=== PATIENT | female | born 1965 | race Caucasian/White ===

== ENCOUNTER → 2019-06-18 14:40 | Outpatient (BNVA) | payer MEDICARE, MEDICAID, SELFPAY | PROVIDERS: Family Provider Registered Nurse; PCP Registered Nurse; Visit Provider Registered Nurse | DX: J11.1 Influenza due to unidentified influenza virus with other respiratory manifestations (principal); J30.9 Allergic rhinitis, unspecified | CPT/HCPCS: 87804 ==

== ENCOUNTER → 2019-11-21 09:11 | Outpatient (BNVA) | payer MEDICARE, MEDICAID, SELFPAY | PROVIDERS: Family Provider Registered Nurse; PCP Registered Nurse; Visit Provider Nurse Practitioner Family | DX: E11.9 Type 2 diabetes mellitus without complications (principal); E78.5 Hyperlipidemia, unspecified; Z79.899 Other long term (current) drug therapy | CPT/HCPCS: 80053; 80061; 82043; 83036 ==

== ENCOUNTER 2019-11-26 13:14 | Outpatient (CLI) | payer MEDICARE, MEDICAID, SELFPAY ==
--- NOTE | 2019-11-26 13:00 | MR_ITS ---
WS: [id number] MRI LUMBAR SPINE WITH AND WITHOUT CONTRAST HISTORY: Low back pain COMPARISON: 04/21/2018 TECHNIQUE: Sagittal and axial multisequence imaging is submitted. Sagittal and axial T1 fat sat seque nces post-ProHance 17 cc IV. Prior LEFT hemilaminectomy defects at L4-5 and L5-S1. Posterior lumbar alignment is unchanged. Minimal anterolisthesis of L4 by 2 mm. Remote L1 compression fracture by 20% with no acute marrow edema. Mild disc space narrowing and desiccation at L5-S1. Conus terminates normally at L1. L1-L2: Bilateral facet and ligamentum flavum arthropathy. Mild encroachment upon the posterior latera l thecal sac. Similar to the prior study. L2-L3: Moderate ligamentum flavum arthropathy and facet arthritis. Mild encroachment and narrowing of the thecal sac and subarticular recesses. Similar to the prior study. L3-L4: Mild ligamentum flavum and hypertrophy and facet arthritis. No focal disc protrusions. L4-L5: Mild annular disc bulging. Marked ligamentum flavum hypertrophy and facet arthritis. Facet yesika nt arthritis encroaches upon the posterior lateral thecal sac. There is contact bilaterally on the L5 nerve roots in the subarticular recesses. No significant foraminal narrowing on the LEFT. Moderate c ontact on the L4 nerve root on the RIGHT. L5-S1: Mild annular disc bulging with facet and ligamentum flavum arthritis. Osteophyte contacting th e S1 nerve roots bilaterally but greater on the LEFT. Mild bilateral foraminal stenosis. On the postcontrast images there is no discitis or osteomyelitis. Small amount of enhancement through the laminectomy sites at L4-5 and L5-S1. No abscess. Incompletely visualized 3 cm RIGHT renal cyst. MR/MR lumbar spine wo/w con [id number] IMPRESSION: 1. Minimal anterolisthesis of L4 is similar to the prior study. 2. Multilevel facet and ligamentum flavum hypertrophy with encroachment upon t he central thecal sac and subarticular recesses. No significant progression of disease. 3. Bilateral facet joint arthritis contacting the L5 nerve roots in the subart icular recesses and moderate contact on the RIGHT L4 nerve root. Similar to the prior study. 4. Bilateral S1 nerve root contact by osteophyte disease, LEFT greater than RI GHT. Similar to the prior study. 5. Remote stable L1 compression fracture. 6. Prior LEFT hemilaminectomy defects at L4-5 and L5-S1.
--- NOTE | 2019-11-26 13:45 | XR_ITS ---
WS: [id number] LATERAL LUMBAR SPINE: 3 view. Lateral radiographs are performed in upright neutral, flexion and extension to the patient's toleranc e. HISTORY: Low back pain COMPARISON: 04/21/2018 L4 anterolisthesis by 7.8 mm on neutral imaging. Mild disc space narrowing at L4-5 and L5-S1. During flexion anterolisthesis 9.5 mm and extension 7.9 mm. XR/XR lumbar spine f/e only [id number] IMPRESSION: 1. Grade 1 anterolisthesis of L4. 2. Mild flexion instability at L4. Similar to the prior study.
== END 2019-11-26 13:15 | disposition home or self-care (01) ==
LOC: RADWPI 13:20
PROVIDERS: Family Provider Registered Nurse; PCP Registered Nurse; Visit Provider Licensed Practical Nurse
DX: M53.2X6 Spinal instabilities, lumbar region (principal); M13.88 Other specified arthritis, other site; S32.010A Wedge compression fracture of first lumbar vertebra, initial encounter for closed fracture; X58.XXXA Exposure to other specified factors, initial encounter; M96.1 Postlaminectomy syndrome, not elsewhere classified
CPT/HCPCS: 72120; 72158; A9579

== ENCOUNTER 2019-11-26 14:21 | Outpatient (CLI) | payer MEDICARE, MEDICAID, SELFPAY ==
--- NOTE | 2019-11-26 14:29 | XR_ITS ---
WS: [id number] LEFT SHOULDER: 3 VIEW(S) TECHNIQUE: Internal and external rotation with Y view. HISTORY: left shoulder pain COMPARISON: None available. No fracture or dislocation or soft tissue abnormality. Mild narrowing of the AC joint. XR/XR shoulder LT min 2V* [id number] IMPRESSION: Mild AC joint arthritis.
== END 2019-11-26 14:22 | disposition home or self-care (01) ==
LOC: RADWPI 14:27
PROVIDERS: Family Provider Registered Nurse; PCP Registered Nurse; Visit Provider Nurse Practitioner Family
DX: M13.812 Other specified arthritis, left shoulder (principal); M53.2X6 Spinal instabilities, lumbar region; M13.88 Other specified arthritis, other site; S32.010A Wedge compression fracture of first lumbar vertebra, initial encounter for closed fracture; X58.XXXA Exposure to other specified factors, initial encounter; M96.1 Postlaminectomy syndrome, not elsewhere classified
CPT/HCPCS: 72120; 72158; 73030; A9579

== ENCOUNTER 2019-11-28 09:46 | Outpatient (CLI) | payer MEDICARE, MEDICAID, SELFPAY ==
--- NOTE | 2019-11-28 09:52 | XR_ITS ---
WS: [id number] Left knee, 3 views, 11/28/2019 Clinical Data: knee pain Comparison: Left knee, 08/17/2018. Findings: No fractures or dislocations are seen. The joint spaces are normal. The patella is intact. The soft t issues are unremarkable. XR/XR knee LT 3V* [id number] Impression: Negative left knee.
== END 2019-11-28 09:47 | disposition home or self-care (01) ==
PROVIDERS: Family Provider Registered Nurse; PCP Registered Nurse; Visit Provider Specialist
DX: M25.562 Pain in left knee (principal)
CPT/HCPCS: 73562

== ENCOUNTER → 2019-12-04 15:37 | Outpatient (BNVA) | payer MEDICARE, MEDICAID, SELFPAY | PROVIDERS: Family Provider Registered Nurse; PCP Registered Nurse; Visit Provider Licensed Practical Nurse | DX: M96.1 Postlaminectomy syndrome, not elsewhere classified (principal) | CPT/HCPCS: 99213 ==

== ENCOUNTER 2019-12-12 10:08 | Outpatient (RCR) | payer MEDICARE, MEDICAID, SELFPAY | END 2019-12-17 23:59 | disposition home or self-care (01) | LOC: WPT 10:08 | PROVIDERS: PCP Registered Nurse; Referring Provider Licensed Practical Nurse; Visit Provider Licensed Practical Nurse | DX: M96.1 Postlaminectomy syndrome, not elsewhere classified (principal) | CPT/HCPCS: 97110; 97163 ==

== ENCOUNTER → 2020-01-18 11:48 | Outpatient (BNVA) | payer MEDICARE, MEDICAID, SELFPAY | PROVIDERS: PCP Registered Nurse; Visit Provider Nurse Practitioner Family | DX: J22 Unspecified acute lower respiratory infection (principal) | CPT/HCPCS: 71046 ==

== ENCOUNTER → 2020-01-25 14:34 | Outpatient (BNVA) | payer MEDICARE, MEDICAID, SELFPAY | PROVIDERS: PCP Registered Nurse; Visit Provider Nurse Practitioner Family | DX: R50.9 Fever, unspecified (principal) | CPT/HCPCS: 87400 ==

== ENCOUNTER → 2020-02-27 14:06 | Outpatient (BNVA) | payer MEDICARE, MEDICAID, SELFPAY | PROVIDERS: PCP Registered Nurse; Visit Provider Nurse Practitioner Family | DX: Z11.59 Encounter for screening for other viral diseases (principal); Z03.818 Encounter for observation for suspected exposure to other biological agents ruled out; R50.9 Fever, unspecified | CPT/HCPCS: 87635 ==

== ENCOUNTER → 2020-05-19 13:42 | Outpatient (BNVA) | payer MEDICARE, MEDICAID, SELFPAY | PROVIDERS: PCP Registered Nurse; Visit Provider Nurse Practitioner Family | DX: E11.9 Type 2 diabetes mellitus without complications (principal); R53.83 Other fatigue; R56.9 Unspecified convulsions; M79.646 Pain in unspecified finger(s); Z51.81 Encounter for therapeutic drug level monitoring | CPT/HCPCS: 80053; 83036; 85025 ==

== ENCOUNTER → 2020-06-18 10:06 | Outpatient (BNVA) | payer MEDICARE, MEDICAID, SELFPAY | PROVIDERS: PCP Nurse Practitioner Family; Referring Provider Registered Nurse; Visit Provider Specialist | DX: M65.311 Trigger thumb, right thumb (principal); M65.321 Trigger finger, right index finger | CPT/HCPCS: 73130 ==

== ENCOUNTER 2020-06-23 07:55 | Outpatient (CLI) | payer MEDICARE, MEDICAID, SELFPAY ==
--- NOTE | 2020-06-23 08:45 | MR_ITS ---
WS: [id number] MRI LEFT SHOULDER HISTORY: M25.519 - Pain in unspecified shoulder COMPARISON: None available. TECHNIQUE: Multiplanar sequences of the shoulder joint are submitted. Mild AC joint hypertrophy. Small osteophyte measuring 5 mm extends inferiorly from the distal undersu rface of the acromion. There are additional osteophytes from the undersurface of the clavicle encroac margie upon the anterior supraspinatus muscle and tendon. Increased fluid signal through the AC ligamen t with soft tissue hypertrophy around the capsule. No os acromion. Biceps tendon is in normal positio n. Very slight increased amount of fluid along the biceps tendon. Suspicious for very minimal undersurface tear of the distal supraspinatus tendon. There is also mild tendinopathy. No muscle atrophy or edema. Small amount of fluid along the subscapular recess. Abnorm al signal in the posterior labrum. There is also markedly increased signal in the superior labrum. In crease fluid around the labrum. No fractures or marrow edema. There is mild blunting of the superior and inferior glenoid with no marrow edema or fractures. This may be degenerative change or remote hea led fractures. MR/MR shoulder LT wo con* [id number] IMPRESSION: 1. Mild AC joint hypertrophy with moderate encroachment upon the supraspinatus muscle and tendon. Mild AC joint sprain. 2. 5 mm acromial osteophyte from the undersurface encroaches upon the supraspi natus. 3. Significant tear involving the labrum extending superior to posterior. 4. Minimal tear along the articular surface of the distal supraspinatus with t endinopathy. 5. Blunting of the glenoid superior and inferior surfaces may be from prior tr auma. No acute fractures.
== END 2020-06-23 07:56 | disposition home or self-care (01) ==
LOC: RADWPI 07:58
PROVIDERS: PCP Nurse Practitioner Family; Visit Provider Registered Nurse
DX: S43.492A Other sprain of left shoulder joint, initial encounter (principal); S43.52XA Sprain of left acromioclavicular joint, initial encounter; X58.XXXA Exposure to other specified factors, initial encounter; M25.712 Osteophyte, left shoulder
CPT/HCPCS: 73221

== ENCOUNTER → 2020-06-26 09:44 | Outpatient (BNVA) | payer MEDICARE, MEDICAID, SELFPAY | PROVIDERS: PCP Nurse Practitioner Family; Visit Provider Specialist | DX: Z01.812 Encounter for preprocedural laboratory examination (principal); M65.311 Trigger thumb, right thumb; M65.321 Trigger finger, right index finger | CPT/HCPCS: 87635 ==

== ENCOUNTER 2020-07-01 05:43 | Day surgery (SDC) | payer MEDICARE, MEDICAID, SELFPAY ==
[2020-06-30 14:48] VITALS: BMI 31.1
[2020-07-01] VITALS (9 sets, daily range): BP systolic 105–153; BP diastolic 50–95; PULSE 67–75; RESP 16–18; TEMP 36.3–36.9; O2SAT 90–97
[2020-07-01 06:12] LABS: Glucose Point of Care 178 mg/dL (70-110)
[2020-07-01] MEDS: CELEcoxib 200 mg Capsule 400 MG PO (06:16)
[2020-07-01] MEDS: sodium chloride 0.9% 1,000 ML 30 ML IV (06:16)
--- NOTE | 2020-07-01 06:45 | W.PM.OPSUD ---
Surgery/Procedure H&P Update DATE OF PROCEDURE: July 01, 2020 DATE H&P PERFORMED: 06/18/20 H&P UPDATE INFORMATION: I have reviewed H&P completed within last 30 days, I have examined patient prior to procedure and No changes to prior documentation PREOP DIAGNOSIS: Right thumb and index finger triggering PLANNED PROCEDURE: Operation Date: 07/01/20 07:10 Proposed Procedures p Right thumb trigger finger release right index finger release(Right) - Vita Nick MD Related Problem List Diagnoses (1) Trigger finger of right thumb: (2) Trigger finger, right index finger:
--- NOTE | 2020-07-01 06:57 | P.ANESASSM_ITS ---
Pre-Anesthetic Assessment Pre-Anesthetic Assessment: Height/Weight: Height 1.57 m Weight 77.111 kg Temp Pulse Resp BP Pulse Ox 98.4 F 74 18 136/74 95 07/01/20 05:56 07/01/20 05:56 07/01/20 05:56 07/01/20 05:56 07/01/20 05:56 Preop Diagnosis: Right thumb and index finger triggering Proposed Procedure: Operation Date: 07/01/20 07:10 Proposed Procedures p Right thumb trigger finger release rigth index finger release(Right) - Vita Nick MD Was Beta Berenice taken within 24 hours: N/A Was Clonidine taken within 24 hours: N/A Last intake: Intake Last Liquid Date 06/30/20 Last Liquid Time 22:00 Last Solid Date 06/30/20 Last Solid Time 22:00 Social: Social History: Tobacco and No alcohol Exam: Pre-Anes Outpt Exam: alert, oriented x 3 and regular rate & rhythm Airway: Submandibular: WNL Cervical ROM: WNL MP: 2 Dentition: False Pulmonary: Pulmonary: COPD and Sleep apnea Metabolic: Metabolic: Morbid obesity Musc/skel: Musc/skel: Lower Back Pain Neuropsych: Neuropsych: Anxiety and Seizure Anesthetic Plan: ASA status: 3 Anesthesia: MAC Risk of > 500 ml blood loss (7ml/kg in children): No Meds/Allergies Current Medications: Current Medications Generic Name Dose Route Start Last Admin Trade Name Freq PRN Reason Stop Dose Admin Sodium Chloride 1,000 mls @ 30 ml s/hr 07/01/20 06:00 07/01/20 06:16 Sodium Chloride 0.9% IV 07/02/20 05:59 30 mls/hr .Q24H DAVID Administration PFSH Anesthesia PFSH: Medical History COPD (chronic obstructive pulmonary disease) Enrolled in chronic care management Lower respiratory infection Lumbar post-laminectomy syndrome Migraine headache Seizures Seizures Type 2 diabetes mellitus without complication, with no history of insulin use Surgical History History of carpal tunnel release of both wrists History of cervical spinal surgery (1998) 01/08/2016 Dr. Kamila Cabrera: ACDFF surgical site exploration, postoperative cervical wound seroma. 12/29/2015 Dr. Carol Cabrera: C4-C5 ACDF 5, removal of C5-C7 anterior plate and screw fixation hardware. [facility], [place] C5-C7 ACDFF History of decompression of ulnar nerve (10/17/17) 10/17/2017 Dr. Cabrera: Open release of left elbow with subcutaneous transposition. History of hernia repair History of lumbar surgery (07/12/16) 07/12/2016 Dr. Carol Cabrera: Left L4-L5, L5-S1 laminotomy/foraminotomy Family History Sister Diabetes Mother Diabetes Hypertension Cancer Father Diabetes Hypertension Cancer Social History Smoking and tobacco status: current every day smoker Alcohol intake: never Household members: spouse Marital status: Current occupational status: disabled History of recent travel: No Data Anesthesia Other Labs: Laboratory Results - last 48 hr 07/01/20 06:09 POC Glucose 178 H Cardiac Studies: No Data to Display
--- NOTE | 2020-07-01 08:20 | SUR.PHASEI ---
PT ON RA TRIAL, PT DOES NOT AWAKE TO TOUCH, HOB AT 30 DEGREES, VSS RT ARM ELEVATED ON PILLOW, DISTAL FINGERS PINK WARM WITH FAST CAP REFILL NOTED.
--- NOTE | 2020-07-01 08:32 | P.OP_ITS ---
Operative Report Date of procedure: July 01, 2020 Pre-op Diagnosis: Right thumb and index finger triggering Post-op diagnosis: same Post-op Findings: Triggering with his of tendon irregularity Procedure Done: Release right thumb and index trigger fingers Specimens removed/disposition: None Pathology: none sent Surgeon: Vita Nick Anesthesia: MAC (With [place] block) Estimated blood loss (mL): 0 Tourniquet time (min): 44 Tourniquet time: At 250 mmHg IV fluids (mL): 500 Urine output (mL): 0 Urine output: No Lambert Complications: None Findings: Significant triggering, particularly of the thumb, with some irregularity of the tendon consistent with chronic triggering. Condition: stable Disposition: PACU (Then to same-day surgery for discharge to home) Brief History: This 54-year-old woman presented with complaints of severe right thumb triggering and early right index finger triggering. She wished to proceed with operative intervention. Risks and complications were discussed with her, and the patient understood these having had trigger finger release on the opposite hand. The patient signed consents preoperatively. Questions were answered. Procedure: Patient was brought to the operating theater. She was placed on the operating room table. A Caitlin block with MAC was administered without difficulty. Patient tolerated it well. 2 g of Ancef was administered. A tourniquet was placed high on the arm and was elevated for the [place] block. Following exsanguination of the patient's arm, the tourniquet was elevated to 250 mmHg. Total tourniquet time was 44 minutes. Surgical pause was performed prior to commencement of the surgical procedure. At the time of the surgical pause, we identified the site and side of surgery. We also identified the patient's identity and appropriate administration of IV antibiotics. Following the surgical pause, an incision was made along the distal palmar crease beneath the index finger and proximally along the metacarpal phalangeal crease of the thumb. 2 separate incisions were utilized. Dissection continued through the skin to the subcutaneous tissues using a scalpel. Blunt dissection was then utilized to spread soft tissues and allow access to the A1 jose. Each A1 jose was identified. It was then incised longitudinally and sharply using a knife. This was accomplished without difficulty and atraumatically. Once the A1 pulleys were released, tendons were brought up out of the wound and evaluated. There was irregularity consistent with chronic triggering, but no evidence of thinning of the tendon. Tendons were returned to normal position. We then irrigated the wounds and subsequently closed it with 3-0 nylon with an interrupted mattress type suture. Following closure of the wound, the wounds were injected with bupivacaine plain into the subcutaneous tissues as a local anesthetic. Sterile dressing was then placed consisting of OpSite on each incision, fluffed fluffs, sterile soft roll, and an Iam wrap. The patient was returned to recovery in satisfactory condition. She will be discharged home to follow-up with me in the office. There were no complications and no specimens. Associated Problem List Diagnoses (1) Trigger finger, right index finger: (2) Trigger finger of right thumb:
--- NOTE | 2020-07-01 08:35 | SUR.PHASEI ---
PT AWAKE ALERT VERBALIZED NO PAIN AND NO NAUSEA, PT TAKING OCC ICE CHIPS , BUT DOES DOZE OFF IF NOT DISTURBED
--- NOTE | 2020-07-01 14:08 | ANE.PACU2 ---
Inpatient post-anesthesia follow up: Airway intact: Yes Vital signs: Temperature 97.7 F Pulse Rate 67 Respiratory Rate 18 Blood Pressure 153/95 Pulse Oximetry 93 Oxygen Delivery Me thod Room Air Oxygen Flow Rate 8 Fraction of Inspir ed Oxygen Hydration adequate: Yes Nausea and vomiting: No Pain level: 1 Mental status: Baseline
== END 2020-07-01 09:21 | disposition home or self-care (01) ==
PROVIDERS: PCP Nurse Practitioner Family; Visit Provider Specialist
PROC: (CPT 26055; principal; 2020-07-01 07:00)
DX: M65.311 Trigger thumb, right thumb (principal); M65.321 Trigger finger, right index finger; J44.9 Chronic obstructive pulmonary disease, unspecified; G47.30 Sleep apnea, unspecified; E66.01 Morbid (severe) obesity due to excess calories; Z68.31 Body mass index [BMI] 31.0-31.9, adult; E11.9 Type 2 diabetes mellitus without complications; F17.210 Nicotine dependence, cigarettes, uncomplicated; Z79.84 Long term (current) use of oral hypoglycemic drugs
CPT/HCPCS: 26055 ×2; 36416; 82962; 96365; J0131; J0690; J2250; J2704; J3490; J7030

== ENCOUNTER → 2020-07-08 13:04 | Outpatient (BNVA) | payer MEDICARE, MEDICAID, SELFPAY | PROVIDERS: PCP Nurse Practitioner Family; Visit Provider Specialist | DX: F44.5 Conversion disorder with seizures or convulsions (principal); F17.210 Nicotine dependence, cigarettes, uncomplicated | CPT/HCPCS: 99204 ==

== ENCOUNTER → 2020-07-09 10:38 | Outpatient (BNVA) | payer MEDICARE, MEDICAID, SELFPAY | PROVIDERS: PCP Nurse Practitioner Family; Referring Provider Registered Nurse; Visit Provider Specialist | DX: M25.519 Pain in unspecified shoulder (principal) | CPT/HCPCS: 73030 ==

== ENCOUNTER → 2020-07-10 09:49 | Outpatient (BNVA) | payer MEDICARE, MEDICAID, SELFPAY | PROVIDERS: PCP Nurse Practitioner Family; Visit Provider Specialist | DX: R56.9 Unspecified convulsions (principal); F17.210 Nicotine dependence, cigarettes, uncomplicated | CPT/HCPCS: 95816 ==

== ENCOUNTER 2020-07-14 06:00 | Outpatient (RCR) | payer MEDICARE, MEDICAID, SELFPAY | END 2020-07-16 23:59 | disposition home or self-care (01) | LOC: WPT 06:00 | PROVIDERS: PCP Nurse Practitioner Family; Referring Provider Specialist; Visit Provider Specialist | DX: M25.512 Pain in left shoulder (principal) | CPT/HCPCS: 97110; 97162 ==

== ENCOUNTER 2020-07-17 06:00 | Outpatient (RCR) | payer MEDICARE, MEDICAID, SELFPAY | END 2020-08-15 23:59 | disposition home or self-care (01) | LOC: WPT 06:00 | PROVIDERS: PCP Nurse Practitioner Family; Referring Provider Specialist; Visit Provider Specialist | DX: M25.512 Pain in left shoulder (principal) | CPT/HCPCS: 97110 ==

== ENCOUNTER → 2020-09-18 11:31 | Outpatient (BNVA) | payer MEDICARE, MEDICAID, SELFPAY | PROVIDERS: PCP Registered Nurse; Visit Provider Registered Nurse | DX: E11.9 Type 2 diabetes mellitus without complications (principal); J44.9 Chronic obstructive pulmonary disease, unspecified; G25.81 Restless legs syndrome; E78.5 Hyperlipidemia, unspecified; I10 Essential (primary) hypertension; S91.331A Puncture wound without foreign body, right foot, initial encounter; F41.9 Anxiety disorder, unspecified; F17.210 Nicotine dependence, cigarettes, uncomplicated | CPT/HCPCS: 80053; 83036 ==

== ENCOUNTER → 2021-03-04 09:39 | Outpatient (BNVA) | payer MEDICARE, MEDICAID, SELFPAY | PROVIDERS: PCP Registered Nurse; Visit Provider Specialist | DX: M25.512 Pain in left shoulder (principal); M75.80 Other shoulder lesions, unspecified shoulder | CPT/HCPCS: 73030 ==

== ENCOUNTER → 2021-03-17 08:08 | Outpatient (BNVA) | payer MEDICARE, MEDICAID, SELFPAY | PROVIDERS: PCP Registered Nurse; Referring Provider Specialist; Visit Provider Specialist | DX: R56.9 Unspecified convulsions (principal) | CPT/HCPCS: 95816 ==

== ENCOUNTER 2021-03-18 11:26 | Outpatient (CLI) | payer MEDICARE, MEDICAID, SELFPAY ==
--- NOTE | 2021-03-18 11:45 | MR_ITS ---
WS: [id number] MRI LUMBAR SPINE NONCONTRAST TECHNIQUE: Sagittal T1, T2 and STIR imaging. Axial T1 and T2 imaging. CLINICAL INFORMATION: M54.16 - Radiculopathy, lumbar region COMPARISON: None. FINDINGS: Mild lumbar curve. No acute compression. No high-grade central canal stenosis. Slight anterolisthesis L4 on L5. Schmorl's node superior endplate L1. Small central protrusions lower thoracic spine at T6- T7 and T7-T8. T12-L1: Mild annular bulging. Mild facet arthropathy. Spinal canal and foramen are patent. L1-L2: Mild annular bulging. Slight narrowing of the subarticular recess bilaterally. Moderate facet arthropathy. Foramen are patent. L2-L3: Mild annular bulging with mild central canal stenosis. Slight impingement on the subarticular recess. Mild right foraminal narrowing. Moderate facet arthropathy. L3-L4: Mild annular bulging with slight effacement of ventral thecal sac. Moderate facet arthropathy. Mild right foraminal narrowing. L4-L5: Slight anterolisthesis L4 on L5. Mild disc bulging with osteophytic ridging. Slight contact of the traversing L5 nerve roots bilaterally. Mild central canal stenosis. Moderate to advanced facet a rthropathy. Moderate right foraminal narrowing. Left foramen is patent. L5-S1: Disc osteophyte complex with endplate ridging. Moderate facet arthropathy. Foramen are patent. Right renal cysts largest measuring 3.2 CM. MR/MR lumbar spine wo con* [id number] IMPRESSION: 1. Mild lumbar curve. No acute compression. No high-grade central canal stenos is. Grade 1 anterolisthesis L4 on L5. 2. Mild central canal stenosis L2-3 and L4-5 with impingement on the subarticu lar recess bilaterally. This is worse at right L4-5 with impingement traversing right L5 nerve root. 3. Moderate right L4-5 foraminal narrowing with contact of the exiting right L 4 nerve root. 4. Advanced arthropathy L4-L5 and L5-S1.
== END 2021-03-18 11:27 | disposition home or self-care (01) ==
PROVIDERS: PCP Registered Nurse; Visit Provider Registered Nurse
DX: M54.16 Radiculopathy, lumbar region (principal); M48.061 Spinal stenosis, lumbar region without neurogenic claudication; M47.816 Spondylosis without myelopathy or radiculopathy, lumbar region; M47.817 Spondylosis without myelopathy or radiculopathy, lumbosacral region
CPT/HCPCS: 72148

== ENCOUNTER → 2021-03-20 09:55 | Outpatient (BNVA) | payer MEDICARE, MEDICAID, SELFPAY | PROVIDERS: PCP Registered Nurse; Visit Provider Specialist | DX: Z20.822 Contact with and (suspected) exposure to COVID-19 (principal); M25.512 Pain in left shoulder | CPT/HCPCS: 87635 ==

== ENCOUNTER 2021-03-27 06:17 | Day surgery (SDC) | payer MEDICARE, MEDICAID, SELFPAY ==
[2021-03-26 14:01] VITALS: BMI 29.2
[2021-03-27] VITALS (8 sets, daily range): BP systolic 110–172; BP diastolic 60–91; PULSE 76–105; RESP 15–23; TEMP 36.2–37.1; O2SAT 92–96
[2021-03-27] MEDS: acetaminophen 1,000 MG/100 ML PIGGYBACK 400 MG IV (07:15)
[2021-03-27] MEDS: CELEcoxib 200 mg Capsule 400 MG PO (07:15)
[2021-03-27] MEDS: sodium chloride 0.9% 1,000 ML 30 ML IV (07:16)
[2021-03-27 07:29] LABS: Glucose Point of Care 159 mg/dL (70-110)
[2021-03-27 07:32] LABS: Basophils # 0.1 10^3/uL (0.0-0.1); Basophils % 0.7 %; Eosinophils # 0.6 10^3/uL (0.0-0.8); Eosinophils % 7.7 %; Hematocrit 40.9 % (37.0-47.0); Hemoglobin 13.8 g/dL (11.5-15.3); Lymphocytes # 2.3 10^3/uL (0.8-4.8); Lymphocytes % 29.9 %; Mean Corpuscular HGB Conc 33.7 g/dL (30.0-36.0); Mean Corpuscular Hemoglobin 30.3 pg (28.0-34.0); Mean Corpuscular Volume 89.7 fl (81-99); Mean Platelet Volume 10.4 fL (7.4-10.4); Monocytes # 0.6 10^3/uL (0.2-0.9); Monocytes % 7.5 %; Neutrophils # 4.08 10^3/uL (1.8-7.7); Neutrophils % 53.5 %; Nucleated Red Blood Cells % 0 %; Platelet Count 235 10^3/cmm (130-400); Red Blood Count 4.56 10^6/uL (4.1-5.3); Red Cell Distribution Width 12.9 % (12.1-15.1); White Blood Count 7.6 10^3/uL (4.0-10.0)
--- NOTE | 2021-03-27 07:32 | P.ANESASSM_ITS ---
Pre-Anesthetic Assessment Pre-Anesthetic Assessment: Height/Weight: Height 1.57 m Weight 72.575 kg Temp Pulse Resp BP Pulse Ox 98.8 F 76 16 127/77 95 03/27/21 07:01 03/27/21 07:01 03/27/21 07:01 03/27/21 07:01 03/27/21 07:01 Preop Diagnosis: Left shoulder impingement with labral tear Proposed Procedure: Operation Date: 03/27/21 08:20 Proposed Procedures p Shoulder Arthroscopy 91297 08269/ S43.432A, M75.02/ M75.80(Left) - Vita Nick MD s open Distal Clavicle Resection(Left) - Vita Nick MD s Acromioplasty(Left) - Vita Nick MD Familial anesthetic complications: None Was Beta Berenice taken within 24 hours: N/A Was Clonidine taken within 24 hours: N/A Last intake: Intake Last Liquid Date 03/26/21 Last Liquid Time 21:00 Last Solid Date 03/26/21 Last Solid Time 21:00 Social: Social History: No alcohol and No tobacco Exam: Pre-Anes Outpt Exam: alert, oriented x 3, clear to auscultation bilaterally and regular rate & rhythm Airway: Cervical ROM: WNL MP: 3 Dentition: Full Pulmonary: Pulmonary: COPD and Sleep apnea Metabolic: Metabolic: Morbid obesity Neuropsych: Neuropsych: Anxiety and Seizure Anesthetic Plan: ASA status: 3 Anesthesia: General and Regional (specify below) Risk of > 500 ml blood loss (7ml/kg in children): No Meds/Allergies Current Medications: Current Medications Generic Name Dose Route Start Last Admin Trade Name Freq PRN Reason Stop Dose Admin Sodium Chloride 1,000 mls @ 30 ml s/hr 03/27/21 07:00 03/27/21 07:16 Sodium Chloride 0.9% IV 03/28/21 06:59 30 mls/hr .Q24H DAVID Administration PFSH Anesthesia PFSH: Medical History COPD (chronic obstructive pulmonary disease) Enrolled in chronic care management Hyperlipidemia Lower respiratory infection Lumbar post-laminectomy syndrome Migraine headache Restless leg syndrome Seizures Seizures Type 2 diabetes mellitus without complication, with no history of insulin use Surgical History History of carpal tunnel release of both wrists History of cervical spinal surgery (1998) 01/08/2016 Dr. Kamila Cabrera: ACDFF surgical site exploration, postoperative cervical wound seroma. 12/29/2015 Dr. Carol Cabrera: C4-C5 ACDF 5, removal of C5-C7 anterior plate and screw fixation hardware. [place], [place] C5-C7 ACDFF History of decompression of ulnar nerve (10/17/17) 10/17/2017 Dr. Cabrera: Open release of left elbow with subcutaneous transposi tion. History of hernia repair History of lumbar surgery (07/12/16) 07/12/2016 Dr. Carol Cabrera: Left L4-L5, L5-S1 laminotomy/foraminotomy Family History Sister Diabetes Mother Diabetes Hypertension Cancer Father Diabetes Hypertension Cancer Social History Alcohol intake: never Household members: spouse Marital status: Current occupational status: disabled History of recent travel: No Data Anesthesia CBC & Chem 7: 03/27/21 07:00 03/27/21 07:00 Other Labs: Laboratory Results - last 48 hr 03/27/21 07:21 POC Glucose 159 H Cardiac Studies: No Data to Display
[2021-03-27] MEDS: fentaNYL 50 mcg/mL INJ 2mL IVP (07:44)
[2021-03-27] MEDS: midazolam 1 mg/mL INJ 2 mL 2 MG IVP (07:44)
[2021-03-27 07:48] LABS: Add Urine Microscopic? YES; Bilirubin Urine Neg (Negative); Blood Urine Neg (Negative); Glucose Urine UA Norm (Normal); Ketones Urine Negative (Negative); Leukocyte Esterase Urine Negative (Negative); Nitrate Urine Negative (Negative); Protein Urine Neg (Negative); Urine Appearance SL Hazy (CLEAR); Urine Color Yellow (Yellow); Urobilinogen Urine 1 mg/dL (Negative); pH Urine 5 (5-7)
[2021-03-27 07:49] LABS: Add Urine Culture? No; Bacteria Urine 2+ /hpf; Squamous Epithelial Cell Urine 15-25 /hpf (0-5); WBC Urine 0-4 /hpf (0-5)
[2021-03-27 07:52] LABS: Alanine Aminotransferase 16 U/L (0-33); Albumin Level 4.4 g/dL (3.5-5.2); Alkaline Phosphatase 60 IU/L (35-105); Aspartate Amino Transferase 11 U/L (0-32); Blood Urea Nitrogen 9 mg/dL (6-20); Calcium 8.4 mg/dL (8.5-10.5); Carbon Dioxide 19 mmol/L (22-29); Chloride 105 mmol/L (98-107); Globulin 2.3 g/dL (1.3-4.6); Glomerular Filtration Rate 64.5 mL/min (90-130); Glucose 159 mg/dL (65-115); Osmolality Calculated 288 mOsm/kg (285-295); Sodium 138 mmol/L (136-145); Total Bilirubin 0.2 mg/dL (0.15-1.2); Total Protein 6.7 g/dL (6.6-8.7)
[2021-03-27 07:54] LABS: Anion Gap 17.9 (5-19); Potassium 3.9 mmol/L (3.5-5.1)
--- NOTE | 2021-03-27 08:57 | P.HPUD_ITS ---
Surgery/Procedure H&P Update DATE OF PROCEDURE: March 27, 2021 DATE H&P PERFORMED: 03/17/21 H&P UPDATE INFORMATION: I have reviewed H&P completed within last 30 days, I have examined patient prior to procedure, Changes to prior documentation as noted here (Patient has stopped smoking) and [place] [facility] [place] date indicated PREOP DIAGNOSIS: Left shoulder impingement with labral tear PLANNED PROCEDURE: Operation Date: 03/27/21 08:20 Proposed Procedures p Shoulder Arthroscopy 18052 [id number]/ S43.432A, M75.02/ M75.80(Left) - Vita Nick MD s open Distal Clavicle Resection(Left) - Vita Nick MD s Acromioplasty(Left) - Vita Nick MD Related Problem List Diagnoses (1) DJD of left AC (acromioclavicular) joint: (2) Degenerative tear of glenoid labrum of left shoulder: (3) Impingement syndrome, shoulder, left:
[2021-03-27] MEDS: EPINEPHrine 1 mg/mL INJ 2 MG XX (10:21)
--- NOTE | 2021-03-27 11:46 | PM.OP ---
Operative Report Date of procedure: March 27, 2021 Pre-op Diagnosis: Left shoulder impingement, osteoarthritis acromioclavicular joint, and labral tear Post-op diagnosis: same Post-op Findings: Left significant degenerative osteoarthritic change of the acromioclavicular joint with impingement, impingement from the acromion, no rotator cuff tear, degenerative labral tearing. Procedure Done: Shoulder arthroscopic debridement of labral tear and synovitis, open acromioplasty with distal clavicle resection Specimens removed/disposition: Bone, disposed of Pathology: none sent Surgeon: Vita Nick Sap Solution Manager Consultant: None Anesthesia: General (Intubated, ASA 3 with preoperative interscalene block) Estimated blood loss (mL): 25 IV fluids (mL): 800 Urine output (mL): 0 Urine output: No Lambert Complications: None Findings: Significant impingement secondary to subacromial osteophytes and degenerative osteoarthritis of the acromioclavicular joint. Additionally, synovitis and labral tear. Condition: stable Disposition: PACU (Then discharged to home after same-day surgery.) Brief History: This 55-year-old woman presented with complaints of ongoing shoulder pain. MRI findings were consistent with impingement from the acromion as well as the acromioclavicular joint. Additionally, the patient was noted to have labral tearing. Risks and complications of surgical intervention were discussed with the patient. After this discussion, she wished to proceed. Questions were answered. Consents were signed. Procedure: The patient was brought to the operating theater and underwent general intubated, ASA 3, anesthesia. This followed a preoperative interscalene block. The patient was placed in a beachchair position and subsequently the left upper extremity was prepped and draped in the usual fashion utilizing DuraPrep. The arm was draped free. A surgical pause was performed prior to commencement of the surgical procedure. At the time of the surgical pause, we confirmed the site and side of surgery as well as administration of appropriate preoperative antibiotics Ancef 2 g. MRI was also reviewed at that time. Following the surgical pause, arthroscopic portals were established. The arthroscope was introduced into the shoulder joint. At that time, evaluation demonstrated synovitis as well as degenerative osteoarthritis of the glenohumeral joint and labral tearing. Shaver was introduced into the joint. The labrum was debrided. Small amounts of osteoarthritis were also debrided as well. The shoulder was copiously irrigated and attention was directed to the open portion of the procedure. An incision was made at approximately the level of the acromioclavicular joint extending across the anterolateral corner of the acromion and distally as necessary. Care was taken to avoid injury to the axillary nerve by limiting the distal extent of the incision. Dissection continued through skin and soft tissues using a scalpel. Hemostasis was obtained using electrocautery. Soft tissues were elevated off the acromion. An acromioplasty was then accomplished using a combination of a saw and a power rasp. With this, we were able to remove compression caused by the acromion. The rotator cuff was then evaluated to look for tears. No tears were identified. We did perform a partial bursectomy. The shoulder was placed through range of motion to assure that there were no tears in the anterior or posterior margins as well. Finding no rotator cuff tear, this area was irrigated and attention was directed to the acromioclavicular joint. The acromioclavicular joint was exposed. A saw was then used to resect the distal clavicle without difficulty. The undersurface of the clavicle was palpated and was slightly further debrided. A power rasp was used to further smooth the area. When this was felt to be adequately resected, the wound was irrigated. Attention was then directed to closure. The wound was irrigated and closure was accomplished with 0 Vicryl in the capsular tissues overlying the acromioclavicular joint area as well as over the acromion and down into the deltoid muscle. 2-0 Monocryl was used to close the subcutaneous tissues followed by 3-0 Monocryl subcuticular closure. This was followed by Dermabond, Steri-Strips, and OpSite. The patient was placed in a slingshot style sling and was returned to the recovery room in satisfactory condition. The patient will be discharged to home to follow-up with me in the office as previously scheduled. There were no complications and no specimens. Associated Problem List Diagnoses (1) DJD of left AC (acromioclavicular) joint: (2) Degenerative tear of glenoid labrum of left shoulder: (3) Impingement syndrome, shoulder, left:
--- NOTE | 2021-03-27 12:24 | ANE.PACU2 ---
Inpatient post-anesthesia follow up: Airway intact: Yes Vital signs: Temperature 97.1 F Pulse Rate 90 Respiratory Rate 18 Blood Pressure 122/60 Pulse Oximetry 92 Oxygen Delivery Me thod Room Air Oxygen Flow Rate Fraction of Inspir ed Oxygen Hydration adequate: Yes Nausea and vomiting: No Pain level: 2 Mental status: Baseline
== END 2021-03-27 12:25 | disposition home or self-care (01) ==
PROVIDERS: PCP Registered Nurse; Visit Provider Specialist
PROC: (CPT 29805; principal; 2021-03-27 08:10)
PROC: (CPT 23120; 2021-03-27 08:10)
PROC: (CPT 23130; 2021-03-27 08:10)
DX: M25.512 Pain in left shoulder (principal); M19.012 Primary osteoarthritis, left shoulder; S43.492A Other sprain of left shoulder joint, initial encounter; M65.812 Other synovitis and tenosynovitis, left shoulder; E11.9 Type 2 diabetes mellitus without complications; Z79.84 Long term (current) use of oral hypoglycemic drugs; X58.XXXA Exposure to other specified factors, initial encounter
CPT/HCPCS: 23120; 29822; 36416; 64415; 76942; 80053; 81001; 82962; 85025; 96365; J0171; J0690; J1100; J2250; J2405; J2704; J2795; J3010; J3490; J7030

== ENCOUNTER → 2021-04-30 15:36 | Outpatient (BNVA) | payer MEDICARE, MEDICAID, SELFPAY | PROVIDERS: PCP Registered Nurse; Referring Provider Registered Nurse; Visit Provider Orthopaedic Surgery | DX: M54.16 Radiculopathy, lumbar region (principal); M16.11 Unilateral primary osteoarthritis, right hip | CPT/HCPCS: 72110; 73502 ==

== ENCOUNTER 2021-05-04 11:00 | Emergency (ER) | payer MEDICARE, MEDICAID, SELFPAY ==
[2021-05-04 11:11] VITALS: BP 117/70; PULSE 102; RESP 16; TEMP 36.7; O2SAT 95
--- NOTE | 2021-05-04 11:53 | P.NPUCON_ITS ---
Providers/Reason for Consult Consulting Physican/Specialty*: Sabas Garcia MD/Psychiatist Reason for Consult*: Increased stress Primary Care Provider: VANESSA Medina Psych Consult HPI History of Present Illness Galina Engle is a 55 year old female who is an emergency room sent by the crisis team at [facility]. She says that she has been diagnosed with dissociative identity disorder. She does not feel that she needs to be in the hospital. She is not having any suicidal thoughts but has been more stressed out lately. She has not seen a psychiatrist and her medications are being filled by her family practice doctor. She is on BuSpar 30 mg, Prozac 40 mg, Requip 1 mg and Topamax 150 mg daily. She says that her doctor recently gave her some trazodone 50 mg tablets and told her to take 1 or 2 and call her if it worked and she wanted more. She has taken about 6 of them only 1 at a time. She has not tried two. One does not do very much and she will try milligrams tonight. The Requip also has not been working very well and she will try increasing that to 2 mg for the next few nights. She had an intake with [facility] last week and she is supposed to see the psychiatrist in a couple of weeks. Hopefully if she sleeps better she will function better during the day. PFSH NPU PFSH: Medical History COPD (chronic obstructive pulmonary disease) Enrolled in chronic care management Hyperlipidemia Lower respiratory infection Lumbar post-laminectomy syndrome Migraine headache Restless leg syndrome Seizures Type 2 diabetes mellitus without complication, with no history of insulin use Surgical History History of carpal tunnel release of both wrists History of cervical spinal surgery (1998) 01/08/2016 Dr. Kamila Cabrera: ACDFF surgical site exploration, postoperative cervical wound seroma. 12/29/2015 Dr. Carol Cabrera: C4-C5 ACDF 5, removal of C5-C7 anterior plate and sc rew fixation hardware. [place], [place] C5-C7 ACDFF History of decompression of ulnar nerve (10/17/17) 10/17/2017 Dr. Cabrera: Open release of left elbow with subcutaneous transposition. History of hernia repair History of lumbar surgery (07/12/16) 07/12/2016 Dr. Carol Cabrera: Left L4-L5, L5-S1 laminotomy/foraminotomy Family History Sister Diabetes Mother Diabetes Hypertension Cancer Father Diabetes Hypertension Cancer Social History Smoking and tobacco status: current every day smoker Alcohol intake: never Household members: spouse Marital status: Current occupational status: disabled History of recent travel: No Mental Status Exam MSE Comments: I only talked with her over the phone. Pleasant and cooperative and did not seem overly stressed out. She adamantly denied having any thoughts of suicide and does not think that she needs to be in the hospital. She seemed agreeable that focusing on sleep for the time being we will help her make it until she sees a psychiatrist. Vitals/I&O/Wt Last Vital Signs Temp 98.0 F 05/04/21 11:11 Pulse 102 H 05/04/21 11:11 Resp 16 05/04/21 11:11 BP 117/70 05/04/21 11:11 Pulse Ox 95 05/04/21 11:11 Weight last 48 hrs Weight 72.575 kg A&P Additional A&P Information This is a 55-year-old female who reports being diagnosed with dissociative identity disorder. She clearly needs to see a psychiatrist and has an appointment in 2 weeks. I made recommendations to her to improve her sleep which should improve things until she can get in to see the psychiatrist. She does not need to be in the hospital at this point. She is not a danger to herself or others. Attestations NPU Medical Necessity Statement*: Attending physician's note on medical necessity. Coding Level of Care Code Acute Director Staffing for Richard Connell
--- NOTE | 2021-05-04 11:56 | W.ED.GENADLT ---
HPI - General Adult General: Chief complaint: Psychiatric Symptoms Stated complaint: stress out Time Seen by Provider: 05/04/21 11:16 History of Present Illness: HPI narrative: HPI: [55]yo patient w/ hx of dissociative identiy disorder and anxiety brought into the ER for worsening anxiety and stress. Patient was seen today in [facility] clinic and was told to come into the ER for evaluation of worsening stress.last time patient has had similar stress was over 6 months ago at which point time, patient went into this dissociative phase. On arrival, the patient is AAOx3 and cooperative with my evaluation. No focal complaints of chest pain, shortness of breath, palpitations, N/V, focal GI/ complaints. Currently denies SI/HI. No complaints of hallucinations. Onset: Acutely over the last month Duration: ongoing Location: home Severity: moderate Associated symptoms: Deny chest pain, dyspnea, nausea, rash, palpitations or vomiting Review of Systems Const: Denies: fever(s) or chills Eyes: Denies: change in vision ENMT: Denies: mouth pain Card: Denies: chest pain or palpitations Resp: Denies: dyspnea or non-productive cough GI: Denies: abdominal pain, nausea, vomiting or diarrhea : Denies: dysuria Musc: Denies: extremity pain Skin/Breast: Denies: rash or new lesions Neuro: Denies: weakness in extremities Psych: Reports: other (increased stress) Husam/Lymph: Denies: easy bruising PFS ED PFSH: Medical History COPD (chronic obstructive pulmonary disease) Enrolled in chronic care management Hyperlipidemia Lower respiratory infection Lumbar post-laminectomy syndrome Migraine headache Restless leg syndrome Seizures Type 2 diabetes mellitus without complication, with no history of insulin use Surgical History History of carpal tunnel release of both wrists History of cervical spinal surgery (1998) 01/08/2016 Dr. Kamila Cabrera: ACDFF surgical site exploration, postoperative cervical wound seroma. 12/29/2015 Dr. Carol Cabrera: C4-C5 ACDF 5, removal of C5-C7 anterior plate and screw fixation hardware. [place], [place] C5-C7 ACDFF History of decompression of ulnar nerve (10/17/17) 10/17/2017 Dr. Cabrera: Open release of left elbow with subcutaneous transposition. History of hernia repair History of lumbar surgery (07/12/16) 07/12/2016 Dr. Carol Cabrera: Left L4-L5, L5-S1 laminotomy/foraminotomy Family History Sister Diabetes Mother Diabetes Hypertension Cancer Father Diabetes Hypertension Cancer Social History Smoking and tobacco status: current every day smoker Alcohol intake: never Household members: spouse Marital status: Current occupational status: disabled History of recent travel: No Physical Exam Const: COMMON NORMALS: alert HENMT: COMMON NORMALS: atraumatic HEAD & SCALP: atraumatic MOUTH: moist mucous membranes not abnormal Eye: COMMON NORMALS: EOMs intact bilaterally and conjunctivae normal CONJUNCTIVA: Yes conjunctivae normal Neck/C-Spine: COMMON NORMALS: full ROM and supple Resp: COMMON NORMALS: normal respiratory effort and clear to auscultation bilaterally AUSCULTATION: clear to auscultation bilaterally Cardio: COMMON NORMALS: regular rate RATE: regular rate GI: COMMON NORMALS: Soft to palpation and non-tender PALPATION: Yes Soft to palpation Extremity: COMMON NORMALS: full ROM Neuro: SENSORIUM/ORIENTATION: Yes alert MOTOR EXAM: No Abnormal motor strength present and Other motor observations present (no focal motor deficits) Psych: COMMON NORMALS: speech normal SPEECH: Yes normal speech MOOD & AFFECT: Yes Other affect and mood findings present (+stress) Course Vital Signs: Vital signs: Vital Signs Temperature 98.0 F 05/04/21 11:11 Pulse Rate 102 H 05/04/21 11:11 Respiratory Rate 16 05/04/21 11:11 Blood Pressure 117/70 05/04/21 11:11 Pulse Oximetry 95 05/04/21 11:11 MDM - General Adult MDM Narrative: Medical decision making narrative: [55]yo patient w/ hx of stress and dissociative identity disorder presenting for worsening stress and anxiety. HDS, exam within normal limit Thoughts are linear and organized, and the patient has no AH/VH, SI or HI. Clinically the patient displays no overt toxidrome; patient is well appearing, with low suspicion for toxic ingestion given history and exam. Symptoms unlikely 2/2 anemia, hypothyroidism, infection, or ICH. [11:58pm] On reassessment, patient is hemodynamically stable with no acute medical complaints. Case discussed with psychiatric provider Dr. Garcia at [facility] psych inpatient who evaluated patient via telepsych and recommended increasing patient's trazadone from 50mg daily to 100mg daily with discharge with close follow-up. Disposition: Discharge Discharge Plan Discharge Patient Disposition: Home Clinical Impression: Anxiety, Stress Condition: Stable Prescriptions: New trazodone 100 mg tablet 50 mg PO DAILY PRN (Reason: anxiety, insomnia) 14 Days Qty: 14 RF: 0 No Action budesonide [Rhinocort Allergy] 32 mcg/actuation spray,non-aerosol 2 spray intranasal BID Qty: 1 RF: 0 trazodone 50 mg tablet 50 - 100 mg PO DAILY 10 Days Qty: 10 RF: 0 baclofen 10 mg tablet 10 mg PO BID PRN (Reason: muscle pain) 10 Days Qty: 20 RF: 0 buspirone 30 mg tablet 30 mg PO DAILY 90 Days Qty: 90 RF: 0 fluoxetine [Prozac] 40 mg capsule 40 mg PO BEDTIME RF: 0 ropinirole 1 mg tablet 1 mg PO BEDTIME RF: 0 simvastatin 10 mg tablet 10 mg PO BEDTIME RF: 0 lisinopril 5 mg tablet 5 mg PO DAILY RF: 0 topiramate [Topamax] 50 mg tablet 150 mg PO BEDTIME RF: 0 Januvia 50 mg tablet 50 mg PO BEDTIME RF: 0 budesonide-formoterol [Symbicort] 160-4.5 mcg/actuation HFA aerosol inhaler 2 inh inhalation BEDTIME PRN (Reason: shortness of breath) RF: 0 Discharge Orders: Discharge ED (Routine); Ordered 05/04/21 Ordered By: Roxy Johnson Referrals: Margoth Matias, C PYTHON DEVELOPER [Primary Care Provider] - Discharge Diet: Advance as tolerated Discharge Activity: Increase activity as tolerated Patient Instructions: Anxiety (ED) Activity Restrictions/Additional Instructions: Please come back to the emergency room if you need help, have any hallucinations, or you have any depression or have thoughts about hurting yourself or other people. Please take your new trazadone medicine as instructed. Come back if you have any new or concerning issues. Come back if you are feeling excessively sweating, jittery, having a fever or any new other issues - as this can be early signs of Serotonin Syndrome. Coding Level of Care Code ED [place] Operator for Chg Fwd Exam Comprehensive
[2021-05-04 12:46] VITALS: BP 109/72; PULSE 81; RESP 16; O2SAT 94
== END 2021-05-04 13:01 | disposition home or self-care (01) ==
PROVIDERS: Emergency Provider Emergency Medicine; PCP Registered Nurse
DX: F41.9 Anxiety disorder, unspecified (principal); F43.9 Reaction to severe stress, unspecified; J44.9 Chronic obstructive pulmonary disease, unspecified; E78.5 Hyperlipidemia, unspecified; E11.9 Type 2 diabetes mellitus without complications; F17.210 Nicotine dependence, cigarettes, uncomplicated; F44.5 Conversion disorder with seizures or convulsions; S13.4XXD Sprain of ligaments of cervical spine, subsequent encounter; Y93.9 Activity, unspecified
CPT/HCPCS: 99214; 99283; Q3014

== ENCOUNTER → 2021-05-06 10:47 | Outpatient (BNVA) | payer MEDICARE, MEDICAID, SELFPAY | PROVIDERS: PCP Registered Nurse; Visit Provider Specialist | DX: F41.9 Anxiety disorder, unspecified (principal); F43.9 Reaction to severe stress, unspecified; F51.02 Adjustment insomnia | CPT/HCPCS: 90837; 73030; 90834 ==

== ENCOUNTER → 2021-05-20 00:01 | Outpatient (BNVA) | payer MEDICARE, MEDICAID, SELFPAY | PROVIDERS: PCP Registered Nurse; Visit Provider Orthopaedic Surgery | DX: Z01.818 Encounter for other preprocedural examination (principal); Z20.822 Contact with and (suspected) exposure to COVID-19 | CPT/HCPCS: 87635 ==

== ENCOUNTER 2021-05-27 16:36 | Inpatient (IN) | payer MEDICARE, MEDICAID, SELFPAY ==
[2021-05-20 10:32] VITALS: BMI 29.2
--- NOTE | 2021-05-20 10:43 | P.ANESASSM_ITS ---
Pre-Anesthetic Assessment Height/Weight: Height 1.57 m Weight 72.575 kg Preop Diagnosis: Left shoulder impingement with labral tear Operation Date: 05/27/21 08:45 Proposed Procedures p L4/5, L5/S1 WITH LUMBOPELVIC FIXATION 24669, [id number],[id number], 12908, 49853(Not Applicable) - Edgardo Quigley, DO Familial anesthetic complications: None Social Tobacco Exam alert, oriented x 3, clear to auscultation bilaterally and regular rate & rhythm Airway Mallampati: Class II Dentition: other (no teeth) Pulmonary Chronic Obstructive Pulmonary Disease and Sleep Apnea CV/HEM Hypertension and Myocardial Infarction (19 years ago) Metabolic Diabetes Mellitus Neuropsych Seizure Anesthetic Plan Anesthesia: General Medications/Allergies Home Medications Medication Instructions Recorded Confirmed Last Taken Type budesonide 32 mcg/actuation nasal 2 spray INTRANASAL BID #1 ea 08/14/20 05/20/21 03/26/21 Rx spray (Rhinocort Allergy) budesonide-formoterol HFA 160 2 inh INHALATION BEDTIME PRN 03/26/21 05/20/21 03/26/21 History mcg-4.5 mcg/actuation aerosol inhaler (Symbicort) fluoxetine 40 mg capsule (Prozac) 40 mg PO BEDTIME 03/26/21 05/20/21 03/26/21 History lisinopril 5 mg tablet 5 mg PO DAILY 03/26/21 05/20/21 03/26/21 History buspirone 30 mg tablet 30 mg PO DAILY 90 Days #90 tab 04/14/21 05/20/21 Unknown Rx baclofen 10 mg tablet 10 mg PO BID PRN 30 Days #30 tab 05/08/21 05/20/21 Unknown Rx simvastatin 10 mg tablet See Rx Instructions .ROUTE 05/15/21 05/20/21 Unknown Rx .COMPLEX #90 tablet topiramate 50 mg tablet See Rx Instructions .ROUTE 05/15/21 05/20/21 Unknown Rx .COMPLEX #90 tablet ropinirole 1 mg tablet See Rx Instructions .ROUTE 05/18/21 05/20/21 Unknown Rx .COMPLEX #90 tab sitagliptin 50 mg tablet (Januvia) 50 mg PO BEDTIME #90 tab 05/18/21 05/20/21 Unknown Rx trazodone 100 mg tablet 100 mg PO DAILY 05/20/21 05/20/21 Unknown History Allergies Allergy/AdvReac Type Severity Reaction Status Date / Time thioridazine [From Mellaril] Allergy rash and Verified 05/20/21 10:29 itching tramadol Allergy pt has Verified 05/20/21 10:29 seizures [facility] Anesthesia Medical History (Updated 05/12/21 @ 00:00 by ) COPD (chronic obstructive pulmonary disease) Enrolled in chronic care management Hyperlipidemia Lumbar post-laminectomy syndrome Migraine headache Psychiatric care Restless leg syndrome Seizures Type 2 diabetes mellitus without complication, with no history of insulin use Surgical History History of carpal tunnel release of both wrists History of cervical spinal surgery (1998) 01/08/2016 Dr. Kamila Cabrera: ACDFF surgical site exploration, postoperative cervical wound seroma. 12/29/2015 Dr. Carol Cabrera: C4-C5 ACDF 5, removal of C5-C7 anterior plate and screw fixation hardware. [place], [place] C5-C7 ACDFF History of decompression of ulnar nerve (10/17/17) 10/17/2017 Dr. Cabrera: Open release of left elbow with subcutaneous transposition. History of hernia repair History of lumbar surgery (07/12/16) 07/12/2016 Dr. Carol Cabrera: Left L4-L5, L5-S1 laminotomy/foraminotomy Family History Sister Diabetes Mother Diabetes Hypertension Cancer Father Diabetes Hypertension Cancer Social History Alcohol intake: never Household members: spouse Marital status: Current occupational status: disabled History of recent travel: No Data Anesthesia Cardiac Studies: No Data to Display
[2021-05-27] VITALS (15 sets, daily range): BP systolic 88–119; BP diastolic 54–77; PULSE 76–112; RESP 14–18; TEMP 36.3–37; O2SAT 92–98; BMI 29.2
--- NOTE | 2021-05-27 | SCC_ITS ---
Procedure done: 1. L4/5 Interbody fusion with posterolateral fusion 2. L5/S1 Interbody fusion with posterolateral fusion 3. Instrumentation L4-S1 4. Cage at L4/5 5. Cage L5/S1 6. Laminectomy L4 for purpose of decompression of nerve 7. Laminectomy L5 for purpose of decompression of nerve 8. use of autograft from same incision 9. allograft 10. Bone marrow aspirate from right iliac crest through separate incision in fascia 11. use of computer navigation/ stereotactic for spine 11 seconds of fluoroscopic guidance, for a cumulative dose of 30. mGy, was provided to Dr. Quigley by the radiology department. C-arm images of the lumbar spine were saved for the patient's permanent record. GABY
--- NOTE | 2021-05-27 11:18 | W.PM.OPSUD ---
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
[2021-05-27 11:45] LABS: Glucose Point of Care 134 mg/dL (70-110)
[2021-05-27] MEDS: sodium chloride 0.9% 1,000 ML 30 ML IV (11:45)
--- NOTE | 2021-05-27 12:21 | P.ANESUD_ITS ---
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 Proposed Procedure: Operation Date: 05/27/21 11:00 Proposed Procedures p L4/5, L5/S1 WITH LUMBOPELVIC FIXATION 06905, [id number], 30866, 09718(Not Applicable) - Edgardo Quigley, DO Any changes to Pre-Anesthetic Assessment?: No Last Intake: Intake Last Liquid Date 05/26/21 Last Liquid Time 20:00 Last Solid Date 05/26/21 Last Solid Time 20:00 Vitals: Temperature 98.6 F 05/27/21 11:12 Pulse Rate 76 05/27/21 11:12 Respiratory Rate 16 05/27/21 11:12 Blood Pressure 119/65 05/27/21 11:12 Blood Pressure Lois n 83 05/27/21 11:12 Pulse Oximetry 95 05/27/21 11:12 Oxygen Delivery Me thod 05/27/21 11:14 Exam: Pre-Anes Outpt Exam: alert, oriented x 3 and regular rate & rhythm Additional Exam Findings (including area of procedure): rhonchi Cardiac Studies: No Data to Display
[2021-05-27] MEDS: heparin, porcine 1,000 unit/mL INJ 10 mL 10000 UNIT IRRIGATION (12:43)
[2021-05-27] MEDS: vancomycin 1,000 MG SDV 1000 MG XX (12:44)
--- NOTE | 2021-05-27 15:23 | XR_ITS ---
WS: [id number] INTRAOPERATIVE TECHNIQUE: 3 Spot fluoroscopic images for intraoperative purposes. FLUOROSCOPY TIME: 19 seconds CLINICAL INFORMATION: OR PICS COMPARISON: None. FINDINGS: Intraoperative Pedicle screw fixation L4-S1 with interbody fusion grafts. Hardware appears in good po sition. XR/XR lumbar spine 2-3V* [id number] IMPRESSION: Images obtained for intraoperative purposes.
--- NOTE | 2021-05-27 15:40 | P.OP_ITS ---
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 L4/5 Interbody fusion with posterolateral fusion 2. L5/S1 Interbody fusion with posterolateral fusion 3. Instrumentation L4-S1 4. Cage at L4/5 5. Cage L5/S1 6. Laminectomy L4 for purpose of decompression of nerve 7. Laminectomy L5 for purpose of decompression of nerve 8. use of autograft from same incision 9. allograft 10. Bone marrow aspirate from right iliac crest through separate incision in fascia 11. use of computer navigation/ stereotactic for spine Surgeon: Edgardo Quigley Dedicated Truck Driver: Diogenes Fairchild Dedicated Truck Driver: The surgical services assistant, Diogenes Fairchild, JAIDEN was needed for his expertise under the microscope. He was important and necessary throughout the procedure to complete in a safe and timely manner. He assisted with patient positioning prepping and draping tissue retraction suctioning of the operative field protection of the dural sac and tissue closure Estimated blood loss (mL): 200 Procedure: 1. L4/5 Interbody fusion with posterolateral fusion 2. L5/S1 Interbody fusion with posterolateral fusion 3. Instrumentation L4-S1 4. Cage at L4/5 5. Cage L5/S1 6. Laminectomy L4 for purpose of decompression of nerve 7. Laminectomy L5 for purpose of decompression of nerve 8. use of autograft from same incision 9. allograft 10. Bone marrow aspirate from right iliac crest through separate incision in f ascia 11. use of computer navigation/ stereotactic for spine Patient is brought to the operative suite. After undergoing anesthesia, the patient had neuro monitoring attached. Patient was then placed in the prone position on the Jhonny table. All areas of impingement were well-padded. Patient was then prepped and draped in the normal sterile fashion. Skin incision was then made from L5-S1. Subperiosteal dissection was made out to the transverse processes of L4 and L5 and sacral Ala bilaterally. Once the exposure was complete attention was then brought to bone marrow aspirate. The bone marrow aspirate kit was used to aspirate bone marrow aspirate. This was done by using the sharp probe to open up the bone. Aspiration was performed and then the blunt probe was then used to dissect down to through the bone tunnel. An aspirating well drawn back a millimeter approximately 20 cc of bone marrow aspirate was used. And mixed with the allograft and autograft bone that will be used. Next attention was brought to placing the computer navigation fiducial. This was done by drilling 2 K wires into the iliac crest on the right side. And then attaching the fiducial. The C-arm was then brought in and then spun around the patient. This information was then loaded the computer and loaded into the fiducials. The technique for placing the pedicle screws was to use a drill followed by the gearshift probe next to the computer navigation Followed by the ball probe to feel the superior inferior medial lateral henning of the pedicles linked to the computer navigation Then placement of the screws. Was done at each pedicle. Screws were placed at L4, L5 and S1 bilaterally. Next attention was brought to performing the laminectomy ofL4. This was done using the high-speed bur Kerrisons and curettes. Once the lamina was removed and then attention was brought to performing a partial facetectomy on the contralateral side. This was done again using the high-speed bur curettes and Kerrisons. The ligamentum flavum was taken down bilaterally from L4 to L5. Attention was then brought to the facet on the ipsilateral side. The facet was taken down. The L5 nerve was decompressed as it passed around the L5 pedicle. The laminectomy was done for purposes of decompressing the nerve as well as placement of the cage. The L4 nerve was identified as it traversed through the L4/5 foramen. The thecal sac was identified and retracted. The L4/5 disc base was identified. Using a knife the disc base was opened. And then sequential patricia were placed. The first shaver was a 6 and the last shaver was a 12. Using a pituitary and down going curette the endplates were scraped and disc material was removed from the space. Once adequate decompression of the disc base was felt to be had. Osteoamp sponge was packed into the anterior aspect of the disc base. Then a size 12 cage from [employer] was placed after packing osteoamp into the cage. While placing the cage the thecal sac and L5 nerve was protected. C arm was used to ensure that the cages placed in the appropriate position. Next attention was brought to performing the laminectomy ofL5. This was done using the high-speed bur Kerrisons and curettes. Once the lamina was removed and then attention was brought to performing a partial facetectomy on the contralateral side. This was done again using the high-speed bur curettes and Kerrisons. The ligamentum flavum was taken down bilaterally from L5 to s1. Attention was then brought to the facet on the ipsilateral side. The facet was taken down. The S1 nerve was decompressed as it passed around the S1 pedicle. The laminectomy was done for purposes of decompressing the nerve as well as placement of the cage. The L5 nerve was identified as it traversed through the L5/S1 foramen. The thecal sac was identified and retracted. The L5/S1 disc base was identified. Using a knife the disc base was opened. And then sequential patricia were placed. The first shaver was a 6 and the last shaver was a 11. Using a pituitary and down going curette the endplates were scraped and disc material was removed from the space. Once adequate decompression of the disc base was felt to be had. Osteoamp sponge was packed into the anterior aspect of the disc base. Then a size 11 cage from [employer] was placed after packing osteoamp into the cage. While placing the cage the thecal sac and S1 nerve was protected. C arm was used to ensure that the cages placed in the appropriate position. The fiducial pins were removed. Attention was then brought to attaching the rods to the screws placed in the L4 to S1 bilaterally. Caps were torqued into position. Locking the construct in place. Wound was copiously irrigated and then attention was brought to decor ticating the facets and transverse processes laterally. Bone that was taken down from the lamina was used along with osteoamp fibers and sponges were packed into the lateral gutters along the facet joints. This was done bilaterally. Wound was then closed in a layered fashion starting with the thoracolumbar fascia. 0-vicryl was used the sub cutaneous tissue was closed with 2-0 vicryl and skin with 4-0 monocryl. Glue was then used to seal the skin and a steril dressing was applied. Patient was then placed in the supine position. The endotracheal tube was removed and patient was transferred to the PACU in stable condition.
--- NOTE | 2021-05-27 17:03 | PC.NURSE ---
Dr. Quigley notified of patient's BP 88/54. Orders received to give 1L bolus and check blood sugar.
[2021-05-27] MEDS: docusate sodium 100 mg Capsule PO (17:05)
[2021-05-27] MEDS: lactated ringers 1,000 ML 999 ML IV (17:15)
--- NOTE | 2021-05-27 17:35 | ANE.PACU2 ---
Inpatient post-anesthesia follow up: Airway intact: Yes Vital signs: Temperature 97.4 F Pulse Rate 98 Respiratory Rate 18 Blood Pressure 111/66 Pulse Oximetry 97 Oxygen Delivery Me thod Nasal Cannula Oxygen Flow Rate 6 Fraction of Inspir ed Oxygen Hydration adequate: Yes Nausea and vomiting: No Pain level: 3 Mental status: Baseline
[2021-05-27] MEDS: lactated ringers 1,000 ML 90 ML IV (18:17)
[2021-05-27] MEDS: HYDROcodone-acetaminophen 5-325 mg Tablet PO (18:18)
--- NOTE | 2021-05-27 18:28 | PC.NURSE ---
Dr. Quigley notified on BP 94/[address] Quigley patient is okay to receive hydrocodone but hold off on morphine until hypotension resolves.
[2021-05-27] MEDS: ketorolac 30 mg/mL INJ IVP (19:31)
[2021-05-27] MEDS: ropinirole 1 mg Tablet PO (21:00)
[2021-05-27] MEDS: sitagliptin 100 mg Tablet 50 MG PO (21:00)
[2021-05-27] MEDS: topiramate 100 mg Tablet 150 MG PO (21:00)
[2021-05-27] MEDS: fluoxetine 20 mg Capsule 40 MG PO (21:00)
[2021-05-27] MEDS: morphine 4 mg/mL SDV 1 mL 2 MG IVP (21:13)
[2021-05-28] VITALS (7 sets, daily range): BP systolic 96–109; BP diastolic 59–69; PULSE 88–96; RESP 16–18; TEMP 36.6–36.9; O2SAT 92–96
[2021-05-28] MEDS: HYDROcodone-acetaminophen 5-325 mg Tablet PO ×2 (01:49→10:09)
[2021-05-28] MEDS: morphine 4 mg/mL SDV 1 mL 2 MG IVP ×2 (03:00→08:08)
[2021-05-28] MEDS: lactated ringers 1,000 ML 90 ML IV (04:21)
[2021-05-28] MEDS: enoxaparin 40 mg/0.4 mL Syringe SUBCUT (05:56)
--- NOTE | 2021-05-28 07:48 | P.PN_ITS ---
Subjective Subjective: POD 1 Patient resting comfortably. She reported some hypotension through the evening but denied any chest pain shortness of breath. Currently denies any headaches. Her leg pain is much improved. She has back pain currently. Pain medicine has been providing her some relief. Vitals/I&O/Wt Last Vital Signs Temp 98.3 F 05/28/21 04:00 Pulse 96 05/28/21 04:00 Resp 17 05/28/21 04:00 BP 107/67 05/28/21 04:00 Pulse Ox 93 05/28/21 04:00 05/27/21 05/28/21 05/28/21 22:59 06:59 14:59 Intake Total 3060 / 3120 966 / 4086 Output Total 430 / 430 800 / 1230 Balance 2630 / 2690 166 / 2856 Weight last 48 hrs Weight 160 lb Physical Exam Narrative: Patient presents alert and oriented x3 with a good general appearance normal normal affect. Normal coordination normal stability. Mild tenderness around the incisional site with the incision appears clean and dry. Hemovac is intact. No signs of erythema or drainage. No signs of infection. good motor strength both lower extremities with negative straight leg raise bilaterally. Calves are supple no medial thigh tenderness. Pulses are 2+ at the dorsalis pedis and posterior tibial region. Good capillary refill throughout normal sensation light touch both lower extremities. Urinary Catheter Management: Lambert: Cath Placed During This Visit: yes Reason for Continuing Indwelling Catheter: Required Immobilization for Trauma or Surgery or Anesthesia Urinary Catheter Date of Insertion: 05/27/21 Urinary Catheter Time of Insertion: 12:15 A&P Assessment and plan (1) Status post lumbar spinal fusion: Discontinue the Hemovac drain in the Lambert catheter. Physical therapy to mobilize. Encourage incentive spirometer at home. We will have her discharge later today home. We will see her back in the office in 1 week's time for a wound check. She instructed no bending lifting or twisting activities. Continue a walking program. Status: Acute Attestations Medical Necessity Statement*: dc home later today Coding Level of Care Code Acute Overnight Houseperson for Chg Fwd Diagnoses Status post lumbar spinal fusion Z98.1
[2021-05-28] MEDS: BuSPIRONE 10 mg Tablet 30 MG PO (08:03)
[2021-05-28] MEDS: docusate sodium 100 mg Capsule PO (08:03)
[2021-05-28] MEDS: atorvastatin 40 mg Tablet 20 MG PO (08:03)
--- NOTE | 2021-05-28 09:52 | PC.NURSE ---
Hemovac drain d/c per orders with no s/s of complications.
--- NOTE | 2021-05-28 09:58 | PC.CHAP ---
Pastoral Care Encounter/Spiritual Assessment Type of Contact [] Declined farmworker vegetable visit [] Patient/Family/Request visit [] Outpatient visit [] Follow-up visit [] Physician referral [] Code/Alert [x] Routine visit [] Staff referral [] Actively dying [] Patient sleeping [] Family support [] [] Out of room [] Palliative care [] [x] Receiving care in room [] Pre-surgical visit [] Trauma [x] Long length of stay [] ICU visit [] Other: Relational/Emotional Strength [x] Patient feels connected with others/family/visitors/staff [] Distress [] Loneliness/isolation [] Abandonment Spirituality of Patient [x] Person of Kassi [] Attends Samaritan of their Kassi [x] Believes in Prayer [] Reads Bible or Oriental Orthodox materials [] There are Spiritual issues to be addressed Farm Advisor Interventions [x] Prayer [x] Active listening [x] Non-anxious presence [x] Spiritual/emotional support [] Crisis/trauma care [x] Spiritual counseling [] Bereavement support [] Provided bereavement packet [] Provided Bible/devotional materials [] Provided toy/stuffed animal, coloring book to patient or family member [] Provided Communion [] Anointing/[place] [] Salvation [x] Completed spiritual assessment [] Other: Impact on Illness or Injury [] Angry [] Fearful [x] Anxious [] Often cries [] Exhaustion [x] Unable to work [] Unable to attend temple [] Unable to walk/stand [] Unable to read [] Unable to drive [] Unable to eat/drink [] Unable to sleep [] Unable to be with family [] Patient intubated [] Other: Summary 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
--- NOTE | 2021-05-28 10:03 | PC.CHAP ---
Pastoral Care Encounter/Spiritual Assessment Type of Contact [] Declined world renowned chef and restaurant owner visit [] Patient/Family/Request visit [] Outpatient visit [] Follow-up visit [] Physician referral [] Code/Alert [x] Routine visit [] Staff referral [] Actively dying [] Patient sleeping [] Family support [] [] Out of room [] Palliative care [] [x] Receiving care in room [] Pre-surgical visit [] Trauma [] Long length of stay [] ICU visit [] Other: Relational/Emotional Strength [x] Patient feels connected with others/family/visitors/staff [] Distress [] Loneliness/isolation [] Abandonment Spirituality of Patient [x] Person of Kassi [] Attends Druze of their Kassi [x] Believes in Prayer [] Reads Bible or Yarsanism materials [] There are Spiritual issues to be addressed Projection Camera Operator Interventions [x] Prayer [x] Active listening [x] Non-anxious presence [x] Spiritual/emotional support [] Crisis/trauma care [x] Spiritual counseling [] Bereavement support [] Provided bereavement packet [] Provided Bible/devotional materials [] Provided toy/stuffed animal, coloring book to patient or family member [] Provided Communion [] Anointing/[place] [] Salvation [x] Completed spiritual assessment [] Other: Impact on Illness or Injury [] Angry [] Fearful [x] Anxious [] Often cries [] Exhaustion [] Unable to work [] Unable to attend muslim [] Unable to walk/stand [] Unable to read [] Unable to drive [] Unable to eat/drink [] Unable to sleep [] Unable to be with family [] Patient intubated [] Other: Summary swelling in blood work doesn't know about her health at this point has a good attitude not [place] when she can go home Time spent with patient 10 mins
--- NOTE | 2021-05-28 11:42 | PC.SOCIAL ---
Call made to set up a ride for pt to get home. [id number] if they arent here by 2:45 need to call and check
--- NOTE | 2021-05-28 12:23 | PC.NURSE ---
Pt was requesting to drive home after d/c due to original ride being unable to pick her up. Dr. Quigley was notified and doesn't want her driving home and she is aware of this. Case management called and set up transportation.
--- NOTE | 2021-05-28 15:11 | PC.NURSE ---
Pt called up to nurse's station after discharging with ready transportation to tell this nurse that she had the emt driver drop her off at her vehicle and she drove herself home after educating patient while in the hospital that she should not drive 3-5 days.
--- NOTE | 2021-05-29 16:07 | P.DS_ITS ---
Discharge Providers Date of Admission: 05/27/21 16:36 Date of Discharge: May 28, 2021 Attending Provider at Admission: Edgardo Quigley DO Attending Provider at Discharge: Edgardo Quigley DO Primary Care Provider: VANESSA Medina Diagnoses at Discharge Discharge Diagnosis (1) Status post lumbar spinal fusion: Status: Acute Reason for Visit Reason for Visit: Lumbar back pain with radiculopathy right leg Hospital Course Hospital Course Patient's hospital course was uneventful Physical Exam Urinary Catheter Management: Lambert: Cath Placed During This Visit: yes Reason for Continuing Indwelling Catheter: Required Immobilization for Trauma or Surgery or Anesthesia Urinary Catheter Date of Insertion: 05/27/21 Urinary Catheter Time of Insertion: 12:15 Discharge Data Studies Completed and Pending Completed Studies During Hospitalization Category Date Time Status XR lumbar spine 2-3V* [id number] Routine Exams 05/27/21 15:23 Completed Radiology Impressions Lumbar Spine X-Ray 05/27/21 15:23 IMPRESSION: Images obtained for intraoperative purposes. Laboratory Results POC Glucose 134 mg/dL (70-110) H 05/27/21 11:39 Vitals Last Vital Signs Temp 98.4 F 05/28/21 12:00 Pulse 92 05/28/21 12:00 Resp 18 05/28/21 12:00 BP 107/65 05/28/21 12:00 Pulse Ox 92 05/28/21 12:00 Discharge Plan Discharge Patient Disposition: Home Condition: Stable Prescriptions: New hydrocodone-acetaminophen 5-325 mg tablet 1 tab PO Q4H PRN (Reason: pain) Qty: 40 0RF Continued budesonide [Rhinocort Allergy] 32 mcg/actuation spray,non-aerosol 2 spray intranasal BID Qty: 1 0RF Rx Instructions: administer into each nostril baclofen 10 mg tablet 10 mg PO BID PRN (Reason: muscle pain) 30 Days Qty: 30 0RF buspirone 30 mg tablet 30 mg PO DAILY 90 Days Qty: 90 0RF simvastatin 10 mg tablet See Rx Instructions .ROUTE .COMPLEX Qty: 90 0RF Dose Instruction: Take 1 tablet by mouth once daily Rx Instructions: Take 1 tablet by mouth once daily topiramate 50 mg tablet See Rx Instructions .ROUTE .COMPLEX Qty: 90 0RF Dose Instruction: Take 3 tablets by mouth once daily Rx Instructions: Take 3 tablets by mouth once daily ropinirole 1 mg tablet See Rx Instructions .ROUTE .COMPLEX Qty: 90 0RF Dose Instruction: TAKE 1 TABLET BY MOUTH AT BEDTIME FOR 30 DAYS. Rx Instructions: TAKE 2 TABLET BY MOUTH AT BEDTIME FOR 30 DAYS. Januvia 50 mg tablet 50 mg PO BEDTIME Qty: 90 0RF fluoxetine [Prozac] 40 mg capsule 40 mg PO BEDTIME 0RF lisinopril 5 mg tablet 5 mg PO DAILY 0RF budesonide-formoterol [Symbicort] 160-4.5 mcg/actuation HFA aerosol inhaler 2 inh inhalation BEDTIME PRN (Reason: shortness of breath) 0RF trazodone 100 mg tablet 100 mg PO DAILY 0RF Discharge Orders: Discharge Order (Routine); Ordered 05/28/21 Ordered By: Diogenes Fairchild Referrals: Edgardo Quigley DO [Physician] - 06/11/21 8:45 am Discharge Diet: Advance as tolerated Discharge Activity: Limit activity as instructed Patient Instructions: Hydrocodone/Acetaminophen (By mouth), Lumbar Spinal Fusion (GEN), Opioid Safety Activity Restrictions/Additional Instructions: Thank you for [facility] for your care! The fol lowing is a list of instructions, from your provider, to follow upon your discharge to ensure you have the optimal recovery from your recent injury or surgery. Follow-up care is a boyle part of your treatment and safety. Be sure to make and go to all appointments and call your doctor if you are having problems. If you do not already have a follow-up appointment made, call Dr. Quigley's] office in t he next 1-3 days to make follow up appointment for 1 weeks at [phone]. It is also a good idea to know your test results and keep a list of the medicines you take. Medications will be prescribed for you at your provider's discretion. These medications are to be used as instructed; if they are taken more often that prescribed they will not be refilled early and in most cases will not be refil led at all. > When a refill is needed,you should contact our roffice 2-3 business days before your prescription runs out. Medications will NOT be refilled by bone char operator providers after hours! > Many pain medications contain Tylenol (Acetaminophen). Do not consume more than 4,000 mg of Tylenol per day in total with any combination ofmedications. > Pain medications can cause constipation. Please use an over the counter stool softener as directed, while taking pain medications. Consult your local pharmacist with questions or recommendations on stool softeners. If c onstipation persists, contact our office or your primary care provider. > While under our care, you are not to receive pain medications or other controlled substances from any other provider unless our office is notified and approves. Any attempts to do so will result in refusal to prescribe any further pain medications and possible dismissal from our practice. ? > > The wound should be examined twice a day for signs of infection. Mild redness or bruising is to be expected but indications that an infection maybe starting would include; An increase in redness, swelling, or discharge, a foul odor present around the incision, and/or a fever greater than 101 ?F ? ? Walking is essential for the healing process after surgery. We would like you to slowly advance your walking. This should be done on relatively flat clear ground (inside or out) or can be done on a treadmill. Remember this goal does not have to happen all at once, slowly increase your distance and duration. This can be broken into more more than one walk per day as tolerated. Patients who walk as directed after surgery rarely require Physical Therapy. In the unlikely event this issue arises your provider will direct hospital staff to make the appropriate arrangements. ? No lifting over 5 pounds {a gallon of milk) or bending/twisting until further notice. Each of these activities places an unnecessary amount of stress onto the body and can impede the delicate healing process. > Instead of bending at the waist, keep your back straight and bend at the knees. > Instead of twisting your torso, keep your back straight and turn your entire body with your feet. ? You may sleep in any position which makes you comfortable. Many patients find comfort sleeping in a reclining chair. It is not abnormal to have difficulty sleeping for the first several weeks following your surgery. We recommend trying Benadry! or Tylenol PM as directed to help with your sleeping difficulties. Both medications are over the counter and available without prescription. ? NO SMOKING!!! Smoking dramatically increases the probability of developing postoperative wound infections. ? Common complaints after lumbar and/or thoracic spine surgery include, but are not limited to: numbness and/or tingling in the legs, pain around the incision and surrounding tissues, muscle spasms, or stiffness of the middle to low back. Contact our office if these symptoms persist or if an acute change occurs. ? No driving for the first 3-5days, and not while taking narcotics until seen at your follow-up appointment and cleared. There are no restrictions for riding on short trips, however if you take a longer trip, arrangements should be made to make regular stops to get out of the vehicle and stretch . ? Swelling is an unfortunate event that will take place with any surgery and is the primary source of your postoperative discomfort. While wal phyllis and regular approved activities helps control inflammation, there are additional steps you can take to minimizeswelling. > Place ice over the surgical site and surrounding tissue for twenty minutes, followed by applying a low/medium heat (heating pad) for an additional twenty minutes every 1-2 hours as needed for painrelief. > You may use of over the counter anti-inflammatory medications (Ibuprofen, Motrin, Aleve, Advil, etc) as directed on the package label. These types of medicines wm significantly reduce the amount of discomfort you experience after surgery from swelling. It should be noted that if you have and allergy to any of these medications, or a history of ulcers or kidney disease you should consult you primary care provider prior to starting these medications. Discharge Attestations Time Spent in Discharge Care*: less than 30 min Quality Metrics Clinical Quality Measures [ No reported AMI, CVA or VTE this stay] Coding Level of Care Code Acute Chg FW DC note Diagnoses Status post lumbar spinal fusion Z98.1
[2021-05-29 21:29] LABS: Glucose Point of Care 216 mg/dL (70-110)
== END 2021-05-28 14:06 | disposition home or self-care (01) | DRG 460 ==
LOC: MEDSURG 16:38
PROVIDERS: Admitting Provider Orthopaedic Surgery; PCP Registered Nurse; Visit Provider Orthopaedic Surgery
PROC: 0SG00AJ Fusion of Lumbar Vertebral Joint with Interbody Fusion Device, Posterior Approach, Anterior Column, Open Approach (ICD-10-PCS; CPT 22612; principal; 2021-05-27 11:00)
DX: M54.16 Radiculopathy, lumbar region (principal); M48.061 Spinal stenosis, lumbar region without neurogenic claudication; J44.9 Chronic obstructive pulmonary disease, unspecified; E78.5 Hyperlipidemia, unspecified; M96.1 Postlaminectomy syndrome, not elsewhere classified; G25.81 Restless legs syndrome; E11.9 Type 2 diabetes mellitus without complications; Z98.1 Arthrodesis status; F17.210 Nicotine dependence, cigarettes, uncomplicated; M47.818 Spondylosis without myelopathy or radiculopathy, sacral and sacrococcygeal region; Z79.84 Long term (current) use of oral hypoglycemic drugs; Z79.891 Long term (current) use of opiate analgesic
CPT/HCPCS: 36416; 51702; 72100; 76000; 82962; 94640; 96372; 97161; 97530; C1713; C9359; J0690; J1100; J1200; J1644; J1650; J1885; J2250; J2270; J2405; J2704; J2710; J3010; J3370; J3490; J7030

== ENCOUNTER → 2021-06-02 10:39 | Outpatient (BNVA) | payer MEDICARE, MEDICAID, SELFPAY | PROVIDERS: PCP Registered Nurse; Visit Provider Registered Nurse | DX: E11.9 Type 2 diabetes mellitus without complications (principal) | CPT/HCPCS: 80053; 83036; 85025 ==

== ENCOUNTER → 2021-07-07 08:35 | Outpatient (BNVA) | payer MEDICARE, MEDICAID, SELFPAY | PROVIDERS: PCP Registered Nurse; Visit Provider Physician Assistant | DX: Z98.1 Arthrodesis status (principal) | CPT/HCPCS: 72100 ==

== ENCOUNTER → 2021-07-08 08:24 | Outpatient (BNVA) | payer MEDICARE, MEDICAID, SELFPAY | PROVIDERS: PCP Registered Nurse; Visit Provider Psychiatry & Neurology Psychiatry | DX: F41.1 Generalized anxiety disorder (principal); F33.2 Major depressive disorder, recurrent severe without psychotic features; F43.12 Post-traumatic stress disorder, chronic; F17.210 Nicotine dependence, cigarettes, uncomplicated | CPT/HCPCS: 99204 ==

== ENCOUNTER → 2021-07-27 14:34 | Outpatient (BNVA) | payer MEDICARE, MEDICAID, SELFPAY | PROVIDERS: PCP Registered Nurse; Visit Provider Specialist | DX: M75.82 Other shoulder lesions, left shoulder (principal); F17.210 Nicotine dependence, cigarettes, uncomplicated; M75.02 Adhesive capsulitis of left shoulder | CPT/HCPCS: 20610; 73030; 99213 ==

== ENCOUNTER 2021-08-03 15:21 | Outpatient (CLI) | payer MEDICARE, MEDICAID, SELFPAY ==
--- NOTE | 2021-08-03 15:29 | MR_ITS ---
WS: [id number] MRI CERVICAL SPINE NONCONTRAST HISTORY: M54.12 - Radiculopathy, cervical region COMPARISON: 01/13/2017 Technique: Multiplanar, multisequence noncontrast imaging of the cervical spine. Marked straightening of the normal cervical lordosis. There is a new increase in the focal kyphosis c entered at the C2-3 level. Prior anterior cervical fusion from C4 through C5 with interbody fusion at C4-5 and C5-6. There is complete ankylosis at C5-6 and C6-7 levels. Signal within the cord appears normal. No paravertebral soft tissue abnormalities. C2-C3: Odontoid is tilted posteriorly. Mild annular disc bulge with a central disc protrusion. Bilate ral facet joint arthritis. There is mild encroachment upon the ventral thecal sac. Bilateral moderate foraminal stenosis. Predominantly due to osteophyte disease with mild progression since the prior st . C3-C4: Osteophytic ridging. Bilateral foraminal osteophytes. Severe RIGHT and moderate LEFT foraminal stenosis and facet joint arthritis. Predominantly due to osteophytes. C4-C5: Mild central canal stenosis with moderate bilateral foraminal stenosis. Moderate bilateral fac et joint arthritis. C5-C6: Mild central canal stenosis with a tiny central disc protrusion. Mild to moderate bilateral fo raminal stenosis. C6-C7: Artifact extends along the LEFT paracentral canal obscuring portions of the cervical spine and cord. There is effacement of CSF and deformity of the cord. There is at least moderate central and b ilateral foraminal stenosis. C7-T1: Moderate sized bilateral foraminal osteophytes. Facet joint arthritis encroaching into the pos terior lateral thecal sac. Mild central stenosis with moderate bilateral foraminal stenosis. Additional mild to moderate foraminal stenosis at T1-2, T2-3 and T3-4. Paraspinal soft tissue are normal. MR/MR cervical spin wo con* [id number] IMPRESSION: 1. Prior anterior cervical fusion at C4-5 with interbody fusions at C5-6 and C 6-7. 2. Increase in the cervical stenosis at the C2-3 level. Mild central stenosis with bilateral foraminal stenosis. 3. Severe RIGHT and moderate LEFT foraminal stenosis due to osteophytes at C3- 4. 4. Mild to moderate bilateral foraminal stenosis at C4-5 and C5-6. 5. Moderate central and bilateral foraminal stenosis at C6-7. Mild central and moderate bilateral foraminal stenosis at C7-T1.
== END 2021-08-03 15:22 | disposition home or self-care (01) ==
LOC: RAD 15:23
PROVIDERS: PCP Registered Nurse; Visit Provider Registered Nurse
DX: M54.12 Radiculopathy, cervical region (principal)
CPT/HCPCS: 72141

== ENCOUNTER → 2021-08-13 09:17 | Outpatient (BNVA) | payer MEDICARE, MEDICAID, SELFPAY | PROVIDERS: PCP Registered Nurse; Referring Provider Registered Nurse; Visit Provider Orthopaedic Surgery | DX: M48.02 Spinal stenosis, cervical region (principal); M50.20 Other cervical disc displacement, unspecified cervical region; Z98.1 Arthrodesis status | CPT/HCPCS: 72050; 99214 ==

== ENCOUNTER → 2021-08-18 08:51 | Outpatient (BNVA) | payer MEDICARE, MEDICAID, SELFPAY | PROVIDERS: PCP Registered Nurse; Visit Provider Physician Assistant | DX: Z98.1 Arthrodesis status (principal); M46.1 Sacroiliitis, not elsewhere classified; Z47.89 Encounter for other orthopedic aftercare; Z98.890 Other specified postprocedural states | CPT/HCPCS: 72100; 99213; 99999 ==

== ENCOUNTER → 2021-08-19 10:22 | Outpatient (BNVA) | payer MEDICARE, MEDICAID, SELFPAY | PROVIDERS: PCP Registered Nurse; Referring Provider Orthopaedic Surgery; Visit Provider Anesthesiology Pain Medicine | DX: F43.12 Post-traumatic stress disorder, chronic (principal); F33.2 Major depressive disorder, recurrent severe without psychotic features; F41.1 Generalized anxiety disorder; F17.210 Nicotine dependence, cigarettes, uncomplicated; M50.00 Cervical disc disorder with myelopathy, unspecified cervical region; M54.12 Radiculopathy, cervical region; M47.812 Spondylosis without myelopathy or radiculopathy, cervical region; S13.4XXA Sprain of ligaments of cervical spine, initial encounter; X58.XXXA Exposure to other specified factors, initial encounter | CPT/HCPCS: 99204; 99214 ==

== ENCOUNTER → 2021-09-01 13:45 | Outpatient (BNVA) | payer MEDICARE, MEDICAID, SELFPAY | PROVIDERS: PCP Registered Nurse; Visit Provider Anesthesiology Pain Medicine | DX: E11.9 Type 2 diabetes mellitus without complications (principal); S13.4XXA Sprain of ligaments of cervical spine, initial encounter; X58.XXXA Exposure to other specified factors, initial encounter; Z87.891 Personal history of nicotine dependence; M54.12 Radiculopathy, cervical region | CPT/HCPCS: 36416; 62321; 82962; J1100 ==

== ENCOUNTER → 2021-09-16 11:05 | Outpatient (BNVA) | payer MEDICARE, MEDICAID, SELFPAY | PROVIDERS: PCP Registered Nurse; Visit Provider Anesthesiology Pain Medicine | DX: M50.00 Cervical disc disorder with myelopathy, unspecified cervical region; M54.12 Radiculopathy, cervical region; M47.812 Spondylosis without myelopathy or radiculopathy, cervical region; M79.602 Pain in left arm; X58.XXXA Exposure to other specified factors, initial encounter; Z87.891 Personal history of nicotine dependence | CPT/HCPCS: 99214 ==

== ENCOUNTER → 2021-09-22 07:49 | Outpatient (BNVA) | payer MEDICARE, MEDICAID, SELFPAY | PROVIDERS: PCP Registered Nurse; Visit Provider Orthopaedic Surgery | DX: M54.12 Radiculopathy, cervical region (principal) | CPT/HCPCS: 99213; 99214 ==

== ENCOUNTER → 2021-10-05 10:31 | Outpatient (BNVA) | payer MEDICARE, MEDICAID, SELFPAY | PROVIDERS: PCP Registered Nurse; Referring Provider Orthopaedic Surgery; Visit Provider Specialist | DX: G56.03 Carpal tunnel syndrome, bilateral upper limbs (principal) | CPT/HCPCS: 95910; 95912 ==

== ENCOUNTER → 2021-11-17 08:27 | Outpatient (BNVA) | payer MEDICARE, SELFPAY | PROVIDERS: PCP Registered Nurse; Visit Provider Physician Assistant | DX: Z98.1 Arthrodesis status (principal); Z47.89 Encounter for other orthopedic aftercare | CPT/HCPCS: 72100; 99212; 99213 ==

== ENCOUNTER → 2021-12-10 15:21 | Outpatient (BNVA) | payer OTHER, SELFPAY | PROVIDERS: PCP Registered Nurse; Referring Provider Orthopaedic Surgery; Visit Provider Specialist | DX: G56.03 Carpal tunnel syndrome, bilateral upper limbs (principal); F33.2 Major depressive disorder, recurrent severe without psychotic features; M50.00 Cervical disc disorder with myelopathy, unspecified cervical region | CPT/HCPCS: 80061; 83036; 83721 ==

== ENCOUNTER 2021-12-29 14:06 | Outpatient (CLI) | payer OTHER, MEDICAID, SELFPAY ==
[2021-12-18 11:55] VITALS: BP 126/77; BMI 30.1
== END 2021-12-29 14:07 | disposition home or self-care (01) ==
LOC: SPT 14:06
PROVIDERS: PCP Registered Nurse; Visit Provider Orthopaedic Surgery
DX: M47.22 Other spondylosis with radiculopathy, cervical region (principal)
CPT/HCPCS: 97760; L0174

== ENCOUNTER 2022-02-22 18:12 | Inpatient (IN) | payer MEDICARE, MEDICAID, SELFPAY ==
[2021-12-18 11:55] VITALS: BP 126/77; BMI 30.1
[2022-02-16 10:19] VITALS: BMI 31.1
--- NOTE | 2022-02-16 10:29 | ANES.PREANE2 ---
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 Operation Date: 02/22/22 10:00 Proposed Procedures p PSF C5-T2 07145/[id number]/97827/M47.22/ DECOMPRESSION C7-T1(Not Applicable) - Edgardo Quigley, DO s Cervical Decompression(Not Applicable) - Edgardo H Soraida, DO Familial anesthetic complications: None Social Alcohol and Tobacco Exam alert, oriented x 3, clear to auscultation bilaterally and regular rate & rhythm Airway Mallampati: Class II Dentition: other (not eeth) Pulmonary Chronic Obstructive Pulmonary Disease CV/HEM None reported None reported Hepatic None reported GI None reported Metabolic Diabetes Mellitus and Hyperlipidemia Musc/skel Lower Back Pain Neuropsych Seizure (> 1 year ago) Anesthetic Plan ASA status: 3 Anesthesia: General Risk of > 500 ml blood loss (7ml/kg in children): No Medications/Allergies Home Medications Medication Instructions Recorded Confirmed Last Taken Type budesonide 32 mcg/actuation nasal 2 spray intranasal BID #1 ea 08/14/20 02/16/22 2 Weeks Ago Rx spray (Rhinocort Allergy) ~05/13/21 budesonide-formoterol HFA 160 2 inh inhalation BEDTIME PRN 03/26/21 02/16/22 2 Weeks Ago History mcg-4.5 mcg/actuation aerosol shortness of breath ~05/13/21 inhaler (Symbicort) buspirone 30 mg tablet 30 mg PO BID 90 days #180 tabs 12/01/21 02/16/22 Unknown Rx fluoxetine 40 mg capsule (Prozac) 80 mg PO DAILY #180 caps 12/01/21 02/16/22 Unknown Rx ropinirole 4 mg tablet 4 mg PO .HS #90 tabs 12/01/21 02/16/22 Unknown Rx trazodone 100 mg tablet 300 mg PO .HS PRN insomnia #270 12/01/21 02/16/22 Unknown Rx tabs Cervical Collar #1 ea 12/29/21 02/08/22 Unknown Rx baclofen 20 mg tablet 20 mg PO BID PRN spasms #30 tabs 02/08/22 02/16/22 Unknown Rx simvastatin 10 mg tablet 10 mg PO DAILY 02/16/22 02/16/22 Unknown History sitagliptin 50 mg tablet (Januvia) 50 mg PO DAILY 02/16/22 02/16/22 Unknown History topiramate 50 mg tablet 150 mg PO DAILY 02/16/22 02/16/22 Unknown History Allergies Allergy/AdvReac Type Severity Reaction Status Date / Time adhesive tape Allergy Intermediate ADR-Itching Verified 02/16/22 10:15 thioridazine [From Mellaril] Allergy rash and Verified 02/16/22 10:15 itching tramadol Allergy pt has Verified 02/16/22 10:15 seizures [facility] Anesthesia Medical History COPD (chronic obstructive pulmonary disease) Enrolled in chronic care management Hyperlipidemia Lumbar post-laminectomy syndrome Migraine headache Psychiatric care Restless leg syndrome Seizures Type 2 diabetes mellitus without complication, with no history of insulin use Surgical History History of carpal tunnel release of both wrists History of cervical spinal surgery (1998) 01/08/2016 Dr. Kamila Cabrera: ACDFF surgical site exploration, postoperative cervical wound seroma. 12/29/2015 Dr. Carol Cabrera: C4-C5 ACDF 5, removal of C5-C7 anterior plate and screw fixation hardware. [place], [place] C5-C7 ACDFF History of decompression of ulnar nerve (10/17/17) 10/17/2017 Dr. Cabrera: Open release of left elbow with subcutaneous transposition. History of hernia repair History of lumbar spinal fusion 05/27/2021 History of lumbar surgery (07/12/16) 07/12/2016 Dr. Carol Cabrera: Left L4-L5, L5-S1 laminotomy/foraminotomy Family History Sister Diabetes Mother Diabetes Hypertension Cancer Father Diabetes Hypertension Cancer Social History Smoking and tobacco status: former smoker (08/2021) Quit status (tobacco): has quit using tobacco Year quit tobacco: 08/2021 Second hand smoke exposure: Yes Smoking risk assessment/counseling performed?: No Alcohol intake: current Alcohol intake frequency: holidays/special occasions only Alcohol type: hard liquor Desire information about alcohol rehabilitation?: No Counseling given: No Desire information about substance/drug rehabilitation?: No Counseling given: No Adopted: No Caregiver/support person: No Lives independently: Yes Household members: none Housing: Other Details: camper Marital status: Number of children: 3 Number of grandchildren: 3 Highest education level completed: GED or Equivalent service: No Current occupational status: disabled Pets and animals: Yes Pets & animals: cat(s), dog(s) and farm animals Farm Animals: chicken/turkey/other poultry Pets & animal details: goats, horses History of recent travel: No Leisure activites: music and other Leisure activities details: crafts, hatches out chickens and quail Sexually active: No Current gender identity: Female Kassi/Orthodox: Restorationism Special kassi needs: No Agree to transfusion: Yes Financial difficulty paying for basics: Not Very Hard Female Reproductive History Para: 3 Data Anesthesia Cardiac Studies: No Data to Display
[2022-02-16 11:03] LABS: Basophils % 0.6 %; Eosinophils # 0.3 10^3/uL (0.0-0.8); Eosinophils % 4.5 %; Hematocrit 41.4 % (37.0-47.0); Hemoglobin 13.8 g/dL (11.5-15.3); Lymphocytes # 1.7 10^3/uL (0.8-4.8); Lymphocytes % 24.7 %; Mean Corpuscular HGB Conc 33.3 g/dL (30.0-36.0); Mean Corpuscular Hemoglobin 30.3 pg (28.0-34.0); Mean Corpuscular Volume 90.8 fl (81-99); Mean Platelet Volume 10.5 fL (7.4-10.4); Monocytes # 0.4 10^3/uL (0.2-0.9); Monocytes % 5.7 %; Neutrophils # 4.41 10^3/uL (1.8-7.7); Neutrophils % 63.9 %; Nucleated Red Blood Cells % 0 %; Platelet Count 230 10^3/cmm (130-400); Red Blood Count 4.56 10^6/uL (4.1-5.3); Red Cell Distribution Width 13.1 % (12.1-15.1); White Blood Count 6.9 10^3/uL (4.0-10.0)
[2022-02-16 11:24] LABS: Anion Gap 14.6 (5-19); Blood Urea Nitrogen 7 mg/dL (6-20); Calcium 9.2 mg/dL (8.5-10.5); Carbon Dioxide 25 mmol/L (22-29); Chloride 103 mmol/L (98-107); Glomerular Filtration Rate 64.3 mL/min (90-130); Glucose 179 mg/dL (65-115); Osmolality Calculated 290 mOsm/kg (285-295); Potassium 3.6 mmol/L (3.5-5.1); Sodium 139 mmol/L (136-145)
[2022-02-22] VITALS (22 sets, daily range): BP systolic 93–186; BP diastolic 57–87; PULSE 70–82; RESP 16; TEMP 36.1–37; O2SAT 87–98
--- NOTE | 2022-02-22 | XR_ITS ---
WS: [id number] Cervical spine, C-arm fluoroscopy views, 02/22/2022 Clinical Data: or pic. Comparison: Cervical spine, 08/13/2021. Findings: Dr. Quigley performed a posterior cervical thoracic fusion with bilateral pedicle screws at C 5 and C6 and also at T1 and T2. There were connecting rods. The anterior cervical disc fusion remains intact. XR/XR cervical spine 3V* [id number] Impression: 1. Posterior cervical thoracic fusion. 2. Intact anterior cervical disc fusion
--- NOTE | 2022-02-22 | SCC_ITS ---
Procedure done: 1. C5- T2 Posterior spine fusion 2. C5- T2 posterior spine instrumentation 3. C6/7 laminectomy with partial facetectomy 4. C7/T1 laminectomy with partial facetectomy 5. Use of computer navigation for spine/ stereo tactic 6. use of allograft 7. use of autograft 5 seconds of fluoroscopic guidance, for a cumulative dose of 10 mGy, was provided to Dr. Quigley by the radiology department. C-arm images of the cervical were saved for the patient's permanent record. GABY
[2022-02-22 10:41] LABS: Glucose Point of Care 147 mg/dL (70-110)
[2022-02-22] MEDS: sodium chloride 0.9% 1,000 ML 30 ML IV (10:44)
[2022-02-22] MEDS: fentaNYL 50 mcg/mL INJ 2mL IVP (12:16)
--- NOTE | 2022-02-22 12:21 | P.ANESUD_ITS ---
Pre-Anesthetic Update Pre-Anesthetic Assessment: Date of Surgery/Procedure: 02/22/22 Preop Keesha gnosis: Cervical spondylosis with radiculopathy. Proposed Procedure: Operation Date: 02/22/22 11:30 Proposed Procedures p PSF C5-T2 65578/[id number]/[id number]/80622/M47.22/ DECOMPRESSION C7-T1(Not Applicable) - Edgardo H Soraida, DO s Cervical Decompression(Not Applicable) - Edgardo H Soraida, DO Any changes to Pre-Anesthetic Assessment?: No Last Intake: Intake Last Liquid Date 02/21/22 Last Liquid Time 23:30 Last Solid Date 02/21/22 Last Solid Time 22:00 Vitals: Temperature 98 F 02/22/22 10:15 Pulse Rate 78 02/22/22 10:15 Pulse Rhythm 02/22/22 10:19 Pulse Strength 3+ Normal 02/22/22 10:19 Respiratory Rate 16 02/22/22 12:16 Respiratory Depth Normal 02/22/22 12:16 Blood Pressure 121/86 02/22/22 10:15 Blood Pressure Lois n 97 02/22/22 10:15 Pulse Oximetry 95 02/22/22 10:15 Oxygen Delivery Me thod 02/22/22 10:19 Exam: Pre-Anes Outpt Exam: alert, oriented x 3, clear to auscultation bilaterally and regular rate & rhythm Cardiac Studies: No Data to Display
--- NOTE | 2022-02-22 14:41 | P.HP_ITS ---
Providers/Chief Complaint Admitting Physician: bro Primary Care Provider: VANESSA Medina Chief Complaint: psf c5-t2 decompression c7-t1 History of Present Illness Galina Engle is a 56 year old female neck pain. She points to the left side of neck as the greatest location of her pain.? She continues to have neck pain as well as upper back pain. She has tried injections in the past with no relief. Review of Systems Const: Denies: fever(s), chills or body aches Eyes: Denies: eye discomfort ENMT: Reports: ear or mastoid pain and post nasal drip Card: Denies: chest pain Resp: Denies: dyspnea GI: Denies: abdominal pain, nausea or vomiting Musc: Reports: back pain (low dose baclofen not helping) Skin/Breast: Denies: rash Neuro: Denies: headache(s) Psych: Denies: depression or suicidal ideation Medications/Allergies Home Medications Medication Instructions Recorded Confirmed Last Taken Type budesonide 32 mcg/actuation nasal 2 spray intranasal BID #1 ea 08/14/20 02/22/22 02/21/22 Rx spray (Rhinocort Allergy) budesonide-formoterol HFA 160 2 inh inhalation BEDTIME PRN 03/26/21 02/16/22 2 Weeks Ago History mcg-4.5 mcg/actuation aerosol shortness of breath ~05/13/21 inhaler (Symbicort) Cervical Collar #1 ea 12/29/21 02/16/22 Unknown Rx baclofen 20 mg tablet 20 mg PO BID PRN spasms #30 tabs 02/08/22 02/22/22 02/21/22 Rx buspirone 30 mg tablet 30 mg PO BID 90 days #180 tabs 02/16/22 02/16/22 02/21/22 Rx fluoxetine 40 mg capsule (Prozac) 80 mg PO DAILY #180 caps 02/16/22 02/16/22 02/21/22 Rx hydroxyzine HCl 50 mg tablet 50 mg PO QID PRN itching/anxiety 02/16/22 02/16/22 02/21/22 Rx #120 tabs ropinirole 4 mg tablet 4 mg PO .HS #90 tabs 02/16/22 02/16/22 02/21/22 Rx simvastatin 10 mg tablet 10 mg PO DAILY 11/05/0902/22/22 02/21/22 History sitagliptin 50 mg tablet (Januvia) 50 mg PO DAILY 02/16/22 02/16/22 Unknown History topiramate 50 mg tablet 150 mg PO DAILY 02/16/22 02/16/22 Unknown History trazodone 100 mg tablet 300 mg PO .HS PRN insomnia #270 02/16/22 02/16/22 Unknown Rx tabs Bone Growth Stimulator [id number] #1 ea 02/22/22 Unknown Rx Intraoperative neuromonitioring #1 ea 02/22/22 Unknown Rx Allergies Allergy/AdvReac Type Severity Reaction Status Date / Time adhesive tape Allergy Intermediate ADR-Itching Verified 02/16/22 10:48 thioridazine [From Mellaril] Allergy rash and Verified 02/16/22 10:48 itching tramadol Allergy pt has Verified 02/16/22 10:48 seizures PFSH Acute PFSH: Medical History COPD (chronic obstructive pulmonary disease) Enrolled in chronic care management Hyperlipidemia Lumbar post-laminectomy syndrome Migraine headache Psychiatric care Restless leg syndrome Seizures Type 2 diabetes mellitus without complication, with no history of insulin use Surgical History History of carpal tunnel release of both wrists History of cervical spinal surgery (1998) 01/08/2016 Dr. Kamila Cabrera: ACDFF surgical site exploration, postoperative cervical wound seroma. 12/29/2015 Dr. Carol Cabrera: C4-C5 ACDF 5, removal of C5-C7 anterior plate and screw fixation hardware. [place] C5-C7 ACDFF History of decompression of ulnar nerve (10/17/17) 10/17/2017 Dr. Cabrera: Open release of left elbow with subcutaneous transposition. History of hernia repair History of lumbar spinal fusion 05/27/2021 History of lumbar surgery (07/12/16) 07/12/2016 Dr. Carol Cabrera: Left L4-L5, L5-S1 laminotomy/foraminotomy Family History Sister Diabetes Mother Diabetes Hypertension Cancer Father Diabetes Hypertension Cancer Social History (Updated 02/16/22 @ 10:50 by Saqib Bernard LPN) Smoking and tobacco status: former smoker (08/2021) Quit status (tobacco): has quit using tobacco Year quit tobacco: 08/2021 Second hand smoke exposure: Yes Smoking risk assessment/counseling performed?: No Alcohol intake: current Alcohol intake frequency: holidays/special occasions only Alcohol type: hard liquor Desire information about alcohol rehabilitation?: No Counseling given: Yes Other alcohol counseling details: Meds & alcohol don't mix. Desire information about substance/drug rehabilitation?: No Counseling given: No Adopted: No Caregiver/support person: No Lives independently: Yes Household members: none Housing: Other Details: [facility] Marital status: Number of children: 3 Number of grandchildren: 3 Highest education level completed: GED or Equivalent service: No Current occupational status: disabled Pets and animals: Yes Pets & animals: cat(s), dog(s) and farm animals Farm An imals: chicken/turkey/other poultry Pets & animal details: goats, horses History of recent travel: No Leisure activites: music and other Leisure activities details: crafts, hatches out chickens and quail Sexually active: No Current gender identity: Female Kassi/Jainism: Buddhism Special kassi needs: No Agree to transfusion: Yes Financial difficulty paying for basics: Not Very Hard Female Reproductive History: Para: 3 Vitals/I&O/Wt Last Vital Signs Temp 98 F 02/22/22 10:15 Pulse 78 02/22/22 10:15 Resp 16 02/22/22 12:16 BP 121/86 02/22/22 10:15 Pulse Ox 95 02/22/22 10:15 O2 Del Method 02/22/22 10:19 Physical Exam Narrative: Patient presents alert and oriented x3 with a good general appearance normal normal affect. Normal coordination normal stability. Mild tenderness around the incisional site with the incision appears clean and dry. Hemovac is intact. No signs of erythema or drainage. No signs of infection. good motor strength both lower extremities with negative straight leg raise bilaterally. Calves are supple no medial thigh tenderness. Pulses are 2+ at the dorsalis pedis and posterior tibial region. Good capillary refill throughout normal sensation light touch both lower extremities. Urinary Catheter Management: Lambert: Cath Placed During This Visit: yes Reason for Continuing Indwelling Catheter: Required Immobilization for Trauma or Surgery or Anesthesia Urinary Catheter Date of Insertion: 05/27/21 Urinary Catheter Time of Insertion: 12:15 Data : 02/16/22 10:25 02/16/22 10:25 A&P Assessment and plan (1) Cervical spondylosis with radiculopathy: Posterior cervical fusion with decompression Attestations Medical Necessity Statement*: failed conservative tx Coding Level of Care Code Acute International Account Representative for [facility] Fwd Diagnoses Cervical spondylosis with radiculopathy M47.22
[2022-02-22] MEDS: ceFAZolin 2,000 MG in sodium chloride 0.9% (plus) 50 ML 100 MG IV (15:13)
[2022-02-22] MEDS: vancomycin 1,000 MG SDV 1000 MG XX (16:10)
--- NOTE | 2022-02-22 18:03 | P.OP_ITS ---
Operative Report Date of procedure: February 22, 2022 Pre-op diagnosis: Preop Diagnosis Cervical spondylosis with radiculopathy. Post-op diagnosis: same Procedure done: 1. C5- T2 Posterior spine fusion 2. C5- T2 posterior spine instrumentation 3. C6/7 laminectomy with partial facetectomy 4. C7/T1 laminectomy with partial facetectomy 5. Use of computer navigation for spine/ stereo tactic 6. use of allograft 7. use of autograft Patient brought the operative suite after undergoing anesthesia patient was placed in the prone position. All areas impingement well-padded. Patient was prepped and draped normal sterile fashion. Skin incision made over the C5-T2 level. Bovie dissection was made down to the cervical fascia. Subperiosteal dissection was made out from C5 lateral masses bilaterally C6 lateral masses bilaterally C7 lateral masses bilaterally and out to the T1-T2 transverse processes bilaterally. Once this was completed attention was then brought to placing the fiducial for computer navigation. The spinous process clamp was placed onto the T2 spinous process. Locked into position. The fiducial was linked to the computer. C-arm was brought in and the information from serum was linked to the fiducial which was sent to the computer and later used for placing the pedicle screws. Pedicle screws were placed at T1 and T2. This was done using computer navigation. The high-speed bur was used to start the pedicle. And then the gearshift probe linked to computer navigation was used followed by the pedicle probe followed by placing the screw using computer navigation. This was done at T1 bilaterally and T2 bilaterally. Was brought to placing lateral mass screws at C5 and C6. This was done using the high-speed bur computer navigated drill and navigated screw. This was done at C5 bilaterally and C6 bilaterally. Next attention was brought to performing the C6 laminectomy. The laminectomy was performed using Kerrison rongeur high-speed bur curved curettes and Kerrison rongeurs. This was done bilaterally. Once the lamina was taken down. Then the medial aspect of the C6-7 facet was taken down using the high-speed bur and Kerrison this is mainly the left side this patient is a 20 left-sided arm pain. Extension was brought to the C7-T1 level. The T1 lamina was taken down bilaterally with a high-speed bur. The curved curette was used to undermine and then the Kerrison rongeur was used to take down the lamina laminectomy was taken out C7 was taken out and then the C7-T1 medial aspect of facet was taken more on the left side. The T1 nerve root was traced out the C7 and T1 foramen. In the C VIII nerve root was traced out the C7-T1 foramen. Wounds were irrigated and then the lateral gutters were decorticated with a high-speed bur. The autograft from the laminectomy sites as well as the allograft from the ostial amp was packed in the lateral gutters. From C5 down to T2. Wound was then closed in layered fashion with a deep drain. 0 Vicryl 2- 0 Vicryl and Monocryl suture was used. Sterile dressings were applied and patient was transferred to the PACU in stable addition.
[2022-02-22] MEDS: BuSPIRONE 10 mg Tablet 30 MG PO (21:24)
[2022-02-22] MEDS: oxyCODONE 10 mg ER (12 HR) Tablet PO (21:24)
[2022-02-22] MEDS: docusate sodium 100 mg Capsule PO (21:24)
[2022-02-22] MEDS: lactated ringers 1,000 ML 90 ML IV (21:28)
[2022-02-22] MEDS: ropinirole 2 mg Tablet 4 MG PO (21:55)
[2022-02-23] VITALS (12 sets, daily range): BP systolic 106–127; BP diastolic 49–82; PULSE 70–83; RESP 16–17; TEMP 36.7–37.8; O2SAT 88–97
[2022-02-23] MEDS: ceFAZolin 2,000 MG in sodium chloride 0.9% (plus) 50 ML 100 MG IV ×3 (00:01→15:39)
[2022-02-23] MEDS: HYDROcodone-acetaminophen 5-325 mg Tablet PO (04:16)
--- NOTE | 2022-02-23 07:33 | PC.NURSE ---
report given to ASH Marin
--- NOTE | 2022-02-23 07:37 | P.PN_ITS ---
Subjective Subjective: POD 1 Patient resting comfortably. Complains of neck pain mild shoulder pain. Denies any swallowing difficulties. Denies any chest pain, shortness of breath, headaches. Vitals/I&O/Wt Last Vital Signs Temp 100.0 F H 02/23/22 03:20 Pulse 82 02/23/22 03:20 Resp 16 02/23/22 03:20 BP 122/60 02/23/22 03:20 Pulse Ox 97 02/23/22 03:20 O2 Del Method 02/23/22 03:20 O2 Flow Rate 6 02/22/22 18:39 02/22/22 02/23/22 02/23/22 22:59 06:59 14:59 Intake Total 1200 / 1200 300 / 1500 50 / 50 Output Total 350 / 350 450 / 800 Balance 850 / 850 -150 / 700 50 / 50 Physical Exam Narrative: Patient is alert and oriented x3 with a good general appearance normal mood and affect. Moderately tender with palpation about the posterior incisional site. Posterior incision appears to be pain and dry without signs of erythema or drainage. HemoVAC drain intact. No signs of infection. Good motor strength throughout both upper extremities. Appears to fire in all motor groups with 5/5 strength. Hands are warm good cap refill in all digits. Normal sensation to light touch in all dermatomal areas. Urinary Catheter Management: Lambert: Cath Placed During This Visit: yes Reason for Continuing Indwelling Catheter: Perioperative Use in Selected Surgeries Urinary Catheter Date of Insertion: 02/22/22 Urinary Catheter Time of Insertion: 15:25 Data : 02/16/22 10:25 02/16/22 10:25 A&P Assessment and plan (1) Status post cervical spinal fusion: We will discontinue the Lambert catheter. Continue Hemovac drain until tomorrow. Patient states she lives in a camper with her daughter. We will have social worker palliative care evaluate for placement. Have physical therapy evaluate for mobilization. Continue incentive spirometry for pulmonary toilet. Consider possible discharge tomorrow if arrangements made safely for her discharge. Attestations Medical Necessity Statement*: Possible discharge tomorrow pending placement Coding Level of Care Code Acute Merchandise For Resale Purchasing Agent for Richard Fwd Diagnoses Status post cervical spinal fusion Z98.1
[2022-02-23] MEDS: sitagliptin 100 mg Tablet 50 MG PO (07:47)
[2022-02-23] MEDS: lactated ringers 1,000 ML 90 ML IV ×2 (07:47→11:52)
[2022-02-23] MEDS: fluoxetine 20 mg Capsule 80 MG PO (07:48)
[2022-02-23] MEDS: docusate sodium 100 mg Capsule PO ×2 (07:48→18:32)
[2022-02-23] MEDS: atorvastatin 40 mg Tablet 20 MG PO (07:48)
[2022-02-23] MEDS: oxyCODONE 10 mg ER (12 HR) Tablet PO ×2 (07:49→18:32)
[2022-02-23] MEDS: topiramate 100 mg Tablet 150 MG PO (07:49)
[2022-02-23] MEDS: BuSPIRONE 10 mg Tablet 30 MG PO ×2 (07:50→18:32)
--- NOTE | 2022-02-23 09:07 | PC.PHAR ---
pt states she takes care of her own medications-pt states she had a symbicort inhaler but states she doesnt use it ext med history doesnt show when last filled
[2022-02-23] MEDS: ketorolac 30 mg/mL INJ IVP (11:45)
[2022-02-23] MEDS: morphine 4 mg/mL SDV 1 mL 2 MG IVP (11:45)
--- NOTE | 2022-02-23 11:49 | PC.CHAP ---
Pastoral Care Encounter/Spiritual Assessment Type of Contact [] Declined sushi chef visit [] Patient/Family/Request visit [] Outpatient visit [] Follow-up visit [] Physician referral [] Code/Alert [x] Routine visit [] Staff referral [] Actively dying [] Patient sleeping [] Family support [] [] Out of room [] Palliative care [] [] Receiving care in room [] Pre-surgical visit [] Trauma [] Long length of stay [] ICU visit [] Other: Relational/Emotional Strength [x] Patient feels connected with others/family/visitors/staff [] Distress [] Loneliness/isolation [] Abandonment Spirituality of Patient [x] Person of Kassi [] Attends Jew of their Kassi [x] Believes in Prayer [] Reads Bible or Anabaptism materials [] There are Spiritual issues to be addressed Sr. Payroll Processor Interventions [x] Prayer [x] Active listening [x] Non-anxious presence [x] Spiritual/emotional support [] Crisis/trauma care [] Spiritual counseling [] Bereavement support [] Provided bereavement packet [] Provided Bible/devotional materials [] Provided toy/stuffed animal, coloring book to patient or family member [] Provided Communion [] Anointing/[place] [] Salvation [x] Completed spiritual assessment [] Other: Impact on Illness or Injury [] Angry [] Fearful [] Anxious [] Often cries [] Exhaustion [] Unable to work [] Unable to attend catholic [] Unable to walk/stand [] Unable to read [] Unable to drive [] Unable to eat/drink [] Unable to sleep [] Unable to be with family [] Patient intubated [] Other: Summary Time spent with patient 10 min
--- NOTE | 2022-02-23 14:12 | ANE.PACU2 ---
Inpatient post-anesthesia follow up: Airway intact: Yes Vital signs: Temperature 98.3 F Pulse Rate 70 Respiratory Rate 16 Blood Pressure 127/75 Pulse Oximetry 93 Oxygen Delivery Me thod Room Air Oxygen Flow Rate 6 Fraction of Inspir ed Oxygen Hydration adequate: Yes Nausea and vomiting: No Pain level: 3 Mental status: Baseline
[2022-02-23] MEDS: ropinirole 2 mg Tablet 4 MG PO (20:59)
[2022-02-23] MEDS: hyDROXYzine 25 mg Capsule 50 MG PO (20:59)
[2022-02-23] MEDS: trazodone 150 mg Tablet 300 MG PO (20:59)
[2022-02-24] VITALS (8 sets, daily range): BP systolic 96–158; BP diastolic 63–85; PULSE 70–87; RESP 16–18; TEMP 36.8–37.3; O2SAT 90–93
[2022-02-24] MEDS: lactated ringers 1,000 ML 90 ML IV (03:04)
--- NOTE | 2022-02-24 06:54 | PM.PN ---
Subjective Subjective: POD 2 Patient resting comfortably. Mild neck pain arms feel better. Denies any chest pain, shortness of breath, headaches. She is ready for discharge home. Vitals/I&O/Wt Last Vital Signs Temp 98.2 F 02/24/22 03:19 Pulse 86 02/24/22 03:19 Resp 16 02/24/22 03:19 BP 104/64 02/24/22 03:19 Pulse Ox 92 02/24/22 03:19 O2 Del Method 02/24/22 03:19 O2 Flow Rate 6 02/22/22 18:39 02/23/22 02/23/22 02/24/22 14:59 22:59 06:59 Intake Total 1586.0 / 1586.0 1050 / 2636.0 Output Total 300 / 300 285 / 585 65 / 650 Balance 1286.0 / 1286.0 765 / 2051.0 -65 / 1986.0 Physical Exam Narrative: Patient is alert and oriented x3 with a good general appearance normal mood and affect.? Moderately tender with palpation about the posterior incisional site.? Posterior incision appears to be pain and dry without signs of erythema or drainage.? HemoVAC drain intact.? No signs of infection.? Good motor strength throughout both upper extremities.? Appears to fire in all motor groups with 5/5 strength.? Hands are warm good cap refill in all digits.? Normal sensation to light touch in all dermatomal areas. Urinary Catheter Management: Lambert: Cath Placed During This Visit: yes Reason for Continuing Indwelling Catheter: Not indwelling catheter Urinary Catheter Date of Insertion: 02/22/22 Urinary Catheter Time of Insertion: 15:25 Data : 02/16/22 10:25 02/16/22 10:25 A&P Assessment and plan (1) Status post cervical spinal fusion: Discontinue Hemovac drain. patient financial services manager to arrange home health care. Continue walking program with no bending lifting or twisting activities. We will see her back in 1 week's time for wound check. Continue incentive spirometry for pulmonary toilet at home. Attestations Medical Necessity Statement*: Discharge home when home health care arranged. Coding Level of Care Code Acute Underwater Trapper for Richard Connell Diagnoses Status post cervical spinal fusion Z98.1
--- NOTE | 2022-02-24 07:49 | PC.NURSE ---
bedside report given to ASH garnett
[2022-02-24] MEDS: topiramate 100 mg Tablet 150 MG PO (08:36)
[2022-02-24] MEDS: docusate sodium 100 mg Capsule PO (08:38)
[2022-02-24] MEDS: BuSPIRONE 10 mg Tablet 30 MG PO (08:38)
[2022-02-24] MEDS: oxyCODONE 10 mg ER (12 HR) Tablet PO (08:38)
[2022-02-24] MEDS: atorvastatin 40 mg Tablet 20 MG PO (08:40)
[2022-02-24] MEDS: sitagliptin 100 mg Tablet 50 MG PO (09:52)
[2022-02-24] MEDS: fluoxetine 20 mg Capsule 80 MG PO (09:53)
[2022-02-24] MEDS: HYDROcodone-acetaminophen 5-325 mg Tablet PO (10:40)
--- NOTE | 2022-02-24 12:27 | PC.NURSE ---
Discharge paperwork, new medications, held medications and follow up appointments discussed with patient and family. Verbalized understanding.
--- NOTE | 2022-02-25 15:32 | PM.DCS ---
Discharge Providers Date of Admission: 02/22/22 18:12 Date of Discharge: February 24, 2022 Attending Provider at Admission: Edgardo Quigley DO Attending Provider at Discharge: Edgardo Quigley DO Primary Care Provider: VANESSA Medina Diagnoses at Discharge Discharge Diagnosis (1) Status post cervical spinal fusion: Status: Acute Reason for Visit Reason for Visit: psf c5-t2 decompression c7-t1 Hospital Course Hospital Course uneventful Physical Exam Urinary Catheter Management: Lambert: Cath Placed During This Visit: yes Reason for Continuing Indwelling Catheter: Not indwelling catheter Urinary Catheter Date of Insertion: 02/22/22 Urinary Catheter Time of Insertion: 15:25 Discharge Data Studies Completed and Pending Completed Studies During Hospitalization Category Date Time Status XR cervical spine 3V* [id number] Routine Exams 02/22/22 Completed Radiology Impressions Cervical Spine X-Ray 02/22/22 00:00 Impression: 1. Posterior cervical thoracic fusion. 2. Intact anterior cervical disc fusion Laboratory Results WBC 6.9 10^3/uL (4.0-10.0) 02/16/22 10:25 RBC 4.56 10^6/uL (4.1-5.3) 02/16/22 10:25 Hgb 13.8 g/dL (11.5-15.3) 02/16/22 10:25 Hct 41.4 % (37.0-47.0) 02/16/22 10:25 MCV 90.8 fl (81-99) 02/16/22 10:25 MCH 30.3 pg (28.0-34.0) 02/16/22 10:25 MCHC 33.3 g/dL (30.0-36.0) 02/16/22 10:25 RDW 13.1 % (12.1-15.1) 02/16/22 10:25 Plt Count 230 10^3/cmm (130-400) 02/16/22 10:25 MPV 10.5 fL (7.4-10.4) H 02/16/22 10:25 Neut % (Auto) 63.9 % 02/16/22 10:25 Lymph % (Auto) 24.7 % 02/16/22 10:25 [place] % (Auto) 5.7 % 02/16/22 10:25 Eos % (Auto) 4.5 % 02/16/22 10:25 Baso % (Auto) 0.6 % 02/16/22 10:25 Neut # (Auto) 4.41 10^3/uL (1.8-7.7) 02/16/22 10:25 Lymph # (Auto) 1.7 10^3/uL (0.8-4.8) 02/16/22 10:25 [place] # (Auto) 0.4 10^3/uL (0.2-0.9) 02/16/22 10:25 Eos # (Auto) 0.3 10^3/uL (0.0-0.8) 02/16/22 10:25 Baso # (Auto) 0.0 10^3/uL (0.0-0.1) 02/16/22 10:25 Nucleated RBC % (auto) 0 % 02/16/22 10:25 Nucleated RBCs # 0.0 /100WBC 02/16/22 10:25 Sodium 139 mmol/L (136-145) 02/16/22 10:25 Potassium 3.6 mmol/L (3.5-5.1) 02/16/22 10:25 Chloride 103 mmol/L (98-107) 02/16/22 10:25 Carbon Dioxide 25 mmol/L (22-29) 02/16/22 10:25 Anion Gap 14.6 (5-19) 02/16/22 10:25 BUN 7 mg/dL (6-20) 02/16/22 10:25 Creatinine 0.9 mg/dL (0.5-0.9) 02/16/22 10:25 GFR Calculation 64.3 mL/min (90-130) L 02/16/22 10:25 Glucose 179 mg/dL (65-115) H 02/16/22 10:25 POC Glucose 147 mg/dL (70-110) H 02/22/22 10:26 Calculated Osmolality 290 mOsm/kg (285-295) 02/16/22 10:25 Calcium 9.2 mg/dL (8.5-10.5) 02/16/22 10:25 Vitals Last Vital Signs Temp 98.5 F 02/24/22 12:29 Pulse 87 02/24/22 12:29 Resp 18 02/24/22 12:29 BP 158/85 02/24/22 12:29 Pulse Ox 91 11/09/22 12:29 O2 Del Method 02/24/22 11:26 O2 Flow Rate 0 02/24/22 08:00 Discharge Plan Discharge Patient Disposition: Home Condition: Stable Prescriptions: New hydrocodone-acetaminophen 5-325 mg Tablet 1 - 2 tab PO Q4H PRN (Reason: postop pain) Qty: 40 0RF Continued hydroxyzine HCl 50 mg tablet 50 mg PO QID PRN (Reason: itching/anxiety) Qty: 120 2RF fluoxetine [Prozac] 40 mg capsule 80 mg PO DAILY Qty: 180 1RF (DME) Cervical Collar See Rx Instructions .Route .MEDSUPPLY Qty: 1 0RF Rx Instructions: As directed baclofen 20 mg tablet 20 mg PO BID PRN (Reason: spasms) Qty: 30 2RF (DME) Intraoperative neuromonitioring See Rx Instructions .Route .MEDSUPPLY Qty: 1 0RF Rx Instructions: As directed (DME) Bone Growth Stimulator [id number] See Rx Instructions .Route .MEDSUPPLY Qty: 1 0RF Rx Instructions: As directed simvastatin 10 mg tablet 10 mg PO BEDTIME topiramate 50 mg tablet 150 mg PO BEDTIME Januvia 50 mg tablet 50 mg PO BEDTIME budesonide 32 mcg/actuation [place],Non-Aerosol 2 spray INTRANASAL BID PRN (Reason: Allergy Symptoms) Rx Instructions: administer into each nostril Vitamin C 500 mg Tablet 500 mg PO BEDTIME trazodone 100 mg tablet 300 mg PO BEDTIME PRN (Reason: Sleep) buspirone 30 mg tablet See Rx Instructions .ROUTE .COMPLEX Rx Instructions: 30mg po bedtime and may take extra tab in the day if needed ropinirole 4 mg tablet 4 mg PO BEDTIME Held aspirin 81 mg Tablet,Delayed Release (Dr/Ec) 81 mg PO BEDTIME Hold Instructions: Resume on 03/17/22. Discharge Orders: Discharge Order (Routine); Ordered 02/24/22 Ordered By: Davie Fairchild Referrals: Edgardo Quigley DO [Physician] - 03/04/22 10:15 am (APPOINTMENT WITH [facility]) Discharge Diet: Advance as tolerated Discharge Activity: Limit activity as instructed Patient Instructions: Hydrocodone/Acetaminophen (By mouth), Anterior Posterior Spinal Fusion (DC), Opioid Safety Activity Restrictions/Additional Instructions: Thank you for choosing [facility] for your care! The following is a list of instructions, from your provider, to follow upon your discharge to ensure you have the optimal recovery from your recent injury or surgery. Posterior cervical fusion: What to Expect at Home Your Recovery Follow-up care is a boyle part of your treatment and safety. Be sure to make and go to all appointments, and call your doctor if you are having problems. If you do not already have a follow-up appointment made, call office in the next 1-3 days to make follow up appointment for 1 weeks at [phone]. It is also a good idea to know your test results and keep a list of the medicines you take. You can expect your neck to feel stiff or sore after surgery. This should improve in the weeks after surgery. But it may take 4 to 6 months for you to get better completely. You may have trouble sitting or standing in one position for very long and may need pain medicine in the weeks after your surgery. It may take 4 to 6 weeks to get back to your usual activities, but it may depend on what kind of surgery you had. Your throat will feel sore and it may be difficult to swallow for the first 3 days after your surgery. As long as you can get liquids down without difficulty, this should slowly improve, otherwise call our office or seek medical attention if it becomes increasingly difficult to get anything down including liquids. Avoid hot liquids for first 3-5 days. Soothing foods/liquids such as jello, pudding, and luke warm soups are recommended until swallowing improves. Staying elevated will also help, it's advised you keep propped up at while sleeping to help reduce the swelling. You may use an ice pack directly on your incision or around it on the front of your neck, using a cloth to protect your skin; and a heating pad to the back of your neck as needed. Do not use over the counter anti-inflammatory medications (Ibuprofen, Motrin, Aleve, Advil, etc) Taking these meds after having a fusion can delay fusion rates, we recommend you avoid them for the first 3 months after your surgery[address] Dr. Quigley may advise you to work with a physical therapist to strengthen the muscles around your neck and back - this will be discussed at your follow - up appointments. The pain or numbness you were having in your arms before surgery should get better or go away completely. This care sheet gives you a general idea about how long it will take for you to recover. But each person recovers at a different pace. Follow the steps below to get better as quickly as possible. How can you care for yourself at home? Activity ? Rest when you feel tired. Getting enough sleep will help you recover. ? Try to walk each day. Start by walking a little more than you did the day before. Bit by bit, increase the amount you walk. Walking boosts blood flow and helps prevent pneumonia and constipation. Walking may also decrease your muscle soreness after surgery. ? No lifting anything that is more that 5 pounds. This may include heavy grocery bags and milk containers, a heavy briefcase or backpack, cat litter or dog food bags, a child, or a vacuum truck cleaner. ? Avoid strenuous activities, such as bicycle riding, jogging, weightlifting, or aerobic exercise, until your doctor says it is okay. ? Do not drive until your follow-up visit after your surgery, or until your doctor says it isokay. ? Avoid taking long car trips for 2 to 4 weeks after surgery. Your neck may become tired and painful from sitting too long in one position. ? You will probably need to take 4 to 6 weeks off from work. It depends on the type of work you do and how you feel. ? You may have sex as soon as you feel able, but avoid positions that put stress on your neck or cause pain. Diet ? You can eat your normal diet. If your stomach is upset, try bland, low-fat foods like plain rice, broiled chicken, toast, and yogurt ? Drink plenty of fluids. If you have kidney, heart, or liver disease and have to limit fluids, talk with your doctor before you increase the amount of fluids you drink. ? You may notice that your bowel movements are not regular right after your surgery. This is common. Try to avoid constipation and straining with bowel movements. You may want to take a fiber supplement every day. If you have not had a bowel movement after a couple of days, ask your doctor about taking a mild laxative. Medicines ? Take pain medicines exactly as directed. 1. If Dr. Quigley gave you a prescription medicine for pain, take lt as prescribed. 2. Do not take two or more pain medicines at the same time unless the doctor told you to. Many pain medicines have acetaminophen, which is Tylenol. Too much acetaminophen {Tylenol) can be harmful. 3. If you think your pain pill is making you sick to your stomach: 4. Take your pills after meals (unless your doctor has told you not to). 5. Ask your Dr. for a different pain pill. Incisioncare ? Remove your dressing 48 hours after your surgery. Ok to shower and get the incision wet. Do not overtly wash your incision. When done, pad dry, leave open to air thereafter. Avoid creams and ointments directly on your incision. ? Your sutures in the incision will dissolve and fall out on their own. ? Keep the area clean and dry. You may cover it with a gauze bandage if it weeps or rubs against clothing; if you choose to do this, change the dressing everyday. Other instructions ? Use a heating pad, hot water bottle, or gentle massage on your back to reduce stiffness. Avoid putting heat on your incision When should you call for help? ? Call 911 anytime you think you may need emergency care. For example, call if: ? You pass out (lose consciousness). ? You have sudden chest pain and shortness of breath, or you cough upblood. ? You cannot swallow. ? You have severe pain in your neck or back. ? Call your Dr. or seek immediate medical care if: ? You have pain that does not get better after you take pain pills. ? You have loose stitches, or your incision comes open. ? You have blood or fluid draining from the incision. ? You have signs of infection, such as: 1. Increased pain, swelling, warmth, or redness. 2. Red streaks leading from the site. 3. Pus draining from the site. 4. Swollen lymph nodes in your neck or armpits. 5. A fever. ? You have severe pain in your arms. ? You have new or increased weakness or numbness in your arms. ? Watch closely for any changes in your health, and be sure to contact your doctor if: ? You do not have a bowel movement after taking a laxative. Discharge Attestations Time Spent in Discharge Care*: less than 30 min Quality Metrics Clinical Quality Measures [ No reported AMI, CVA or VTE this stay] Coding Level of Care Code Acute Chg FW DC note Diagnoses Status post cervical spinal fusion Z98.1
== END 2022-02-24 12:30 | disposition home or self-care (01) | DRG 460 ==
LOC: MEDSURG 19:38
PROVIDERS: Anesthesiology; Admitting Provider Orthopaedic Surgery; PCP Registered Nurse; Visit Provider Orthopaedic Surgery
PROC: 0RG6071 Fusion of Thoracic Vertebral Joint with Autologous Tissue Substitute, Posterior Approach, Posterior Column, Open Approach (ICD-10-PCS; principal; 2022-02-22 11:20)
PROC: 0RG6071 Fusion of Thoracic Vertebral Joint with Autologous Tissue Substitute, Posterior Approach, Posterior Column, Open Approach (ICD-10-PCS; CPT 63001; 2022-02-22 11:20)
DX: M47.22 Other spondylosis with radiculopathy, cervical region (principal); J44.9 Chronic obstructive pulmonary disease, unspecified; E78.5 Hyperlipidemia, unspecified; M96.1 Postlaminectomy syndrome, not elsewhere classified; G25.81 Restless legs syndrome; E11.9 Type 2 diabetes mellitus without complications; Z98.1 Arthrodesis status; Z87.891 Personal history of nicotine dependence; Z79.84 Long term (current) use of oral hypoglycemic drugs
CPT/HCPCS: 36415; 36416; 51702; 72040; 76000; 80048; 82962; 85025; 97110; 97161; 97530; C1713; C9359; J0330; J0690; J1100; J1200; J1885; J2250; J2270; J2405; J2704; J2710; J3010; J3370; J3490; J7030; J7120; L0174

== ENCOUNTER → 2022-03-04 10:16 | Outpatient (BNVA) | payer MEDICAID, SELFPAY ==
[2021-12-18 11:55] VITALS: BP 126/77; BMI 30.1
== END ==
PROVIDERS: PCP Registered Nurse; Visit Provider Physician Assistant
DX: Z47.89 Encounter for other orthopedic aftercare (principal); Z98.1 Arthrodesis status
CPT/HCPCS: 99024

== ENCOUNTER → 2022-03-09 09:16 | Outpatient (BNVA) | payer OTHER, MEDICAID, SELFPAY ==
[2021-12-18 11:55] VITALS: BP 126/77; BMI 30.1
== END ==
PROVIDERS: PCP Registered Nurse; Visit Provider Physician Assistant
DX: Z98.1 Arthrodesis status (principal); Z47.89 Encounter for other orthopedic aftercare
CPT/HCPCS: 72040

== ENCOUNTER → 2022-04-06 09:51 | Outpatient (BNVA) | payer MEDICARE, MEDICAID, SELFPAY ==
[2021-12-18 11:55] VITALS: BP 126/77; BMI 30.1
== END ==
PROVIDERS: PCP Registered Nurse; Visit Provider Physician Assistant
DX: Z98.1 Arthrodesis status (principal)
CPT/HCPCS: 72040; 99024

== ENCOUNTER → 2022-04-27 14:25 | Outpatient (BNVA) | payer MEDICARE, MEDICAID, SELFPAY ==
[2021-12-18 11:55] VITALS: BP 126/77; BMI 30.1
== END ==
PROVIDERS: PCP Registered Nurse; Visit Provider Registered Nurse
DX: Z00.00 Encounter for general adult medical examination without abnormal findings (principal); Z23 Encounter for immunization; E78.5 Hyperlipidemia, unspecified
CPT/HCPCS: 80053; 80061; 85025

== ENCOUNTER → 2022-04-29 13:21 | Outpatient (BNVA) | payer MEDICARE, MEDICAID, SELFPAY ==
[2021-12-18 11:55] VITALS: BP 126/77; BMI 30.1
== END ==
PROVIDERS: PCP Registered Nurse; Visit Provider Registered Nurse
DX: Z00.00 Encounter for general adult medical examination without abnormal findings (principal); Z23 Encounter for immunization; E78.5 Hyperlipidemia, unspecified; Z12.31 Encounter for screening mammogram for malignant neoplasm of breast; Z12.2 Encounter for screening for malignant neoplasm of respiratory organs; Z71.3 Dietary counseling and surveillance; F17.210 Nicotine dependence, cigarettes, uncomplicated; Z71.85 Encounter for immunization safety counseling; Z71.89 Other specified counseling; E11.9 Type 2 diabetes mellitus without complications
CPT/HCPCS: 83036

== ENCOUNTER 2022-05-07 14:51 | Outpatient (CLI) | payer MEDICARE, MEDICAID, SELFPAY ==
[2021-12-18 11:55] VITALS: BP 126/77; BMI 30.1
--- NOTE | 2022-05-07 14:59 | MM_ITS ---
WS: [id number] BILATERAL 3D TOMOSYNTHESIS DIGITAL SCREENING MAMMOGRAPHY WITH CAD CLINICAL INFORMATION: Z12.31 - Encounter for screening mammogram for malignant ... HISTORY: Screening mammogram. No current complaints. COMPARISON: None. TECHNIQUE: Bilateral CC and MLO views. FINDINGS: Scattered fibroglandular densities bilaterally. No suspicious focal mass, asymmetry, calcifications, or architectural distortion. No evidence of malignancy. MM/[place] [id number] IMPRESSION: BI-RADS: 1-Negative FOLLOW UP: 1 Year Follow-up Recommend return to annual screening mammography.
== END 2022-05-07 14:52 | disposition home or self-care (01) ==
LOC: RAD 14:52
PROVIDERS: PCP Registered Nurse; Visit Provider Registered Nurse
DX: Z12.31 Encounter for screening mammogram for malignant neoplasm of breast (principal)
CPT/HCPCS: 77063; 77067

== ENCOUNTER → 2022-05-25 07:57 | Outpatient (BNVA) | payer MEDICARE, OTHER, SELFPAY ==
[2021-12-18 11:55] VITALS: BP 126/77; BMI 30.1
== END ==
PROVIDERS: PCP Registered Nurse; Visit Provider Physician Assistant
DX: Z98.1 Arthrodesis status (principal)
CPT/HCPCS: 72040; 72100; 99213

== ENCOUNTER 2022-06-04 08:53 | Outpatient (CLI) | payer MEDICARE, MEDICAID, SELFPAY ==
[2021-12-18 11:55] VITALS: BP 126/77; BMI 30.1
--- NOTE | 2022-06-04 09:30 | CT_ITS ---
WS: [id number] LDCT LUNG CANCER SCREENING TECHNIQUE: Noncontrast CT of the chest with coronal and sagittal reformatted images. CLINICAL INFORMATION: Z87.891 - Personal history of nicotine dependence COMPARISON: None. DLP: 78.21 mGy.cm DIvol: Mean CTDIvol: 1.60 (mGy) All CT scans at [facility] use at least one of these dose optimization techniques: automat ed exposure control; mA and/or kV adjustment per patient size (includes targeted exams where dose is matched to clinical indication); or iterative reconstruction. FINDINGS: Lungs are well aerated. No acute pulmonary infiltrates. No focal pneumonia or pleural fluid . Noncalcified nodule/pleural thickening LEFT lower lobe along the fissure. A few small noncalcified nodules RIGHT upper lobe largest measuring 5 mm. Atelectasis RIGHT upper lobe anteriorly with associa charline bronchiectasis. Tiny subpleural nodule RIGHT lower lobe. Normal caliber thoracic aorta. No mediastinal or hilar lymphadenopathy. No axillary lymphadenopathy. Adrenal glands are normal. Normal GE junction. Mild hypertrophic changes thoracic spine. Postoperativ e changes lower cervical and upper thoracic spine partially visualized laminectomy defects. CT/CT lung screening [id number] IMPRESSION: LUNG-RADS: 2-Benign Appearance or Behavior FOLLOW UP: 12 Month: Continue annual screening with LDCT
== END 2022-06-04 08:54 | disposition home or self-care (01) ==
LOC: RAD 08:54
PROVIDERS: PCP Registered Nurse; Visit Provider Registered Nurse
DX: Z12.2 Encounter for screening for malignant neoplasm of respiratory organs (principal); Z87.891 Personal history of nicotine dependence
CPT/HCPCS: 71271

== ENCOUNTER → 2022-07-27 08:46 | Outpatient (BNVA) | payer MEDICARE, MEDICAID, SELFPAY ==
[2021-12-18 11:55] VITALS: BP 126/77; BMI 30.1
== END ==
PROVIDERS: PCP Registered Nurse; Visit Provider Registered Nurse
DX: E11.9 Type 2 diabetes mellitus without complications (principal)
CPT/HCPCS: 83036

== ENCOUNTER → 2022-08-24 08:07 | Outpatient (BNVA) | payer MEDICARE, MEDICAID, SELFPAY ==
[2021-12-18 11:55] VITALS: BP 126/77; BMI 30.1
== END ==
PROVIDERS: PCP Registered Nurse; Visit Provider Physician Assistant
DX: Z98.1 Arthrodesis status (principal); R20.2 Paresthesia of skin
CPT/HCPCS: 72040; 99213

== ENCOUNTER → 2022-12-07 09:03 | Outpatient (BNVA) | payer MEDICARE, OTHER, MEDICAID, SELFPAY ==
[2021-12-18 11:55] VITALS: BP 126/77; BMI 30.1
== END ==
PROVIDERS: PCP Registered Nurse; Visit Provider Registered Nurse
DX: E11.9 Type 2 diabetes mellitus without complications (principal); F44.5 Conversion disorder with seizures or convulsions; R42 Dizziness and giddiness; M25.511 Pain in right shoulder
CPT/HCPCS: 80053; 83036

== ENCOUNTER → 2022-12-30 13:43 | Outpatient (BNVA) | payer OTHER, SELFPAY ==
[2021-12-18 11:55] VITALS: BP 126/77; BMI 30.1
== END ==
PROVIDERS: PCP Registered Nurse; Visit Provider Psychiatry & Neurology Psychiatry
DX: F33.2 Major depressive disorder, recurrent severe without psychotic features (principal); F43.12 Post-traumatic stress disorder, chronic; Z79.899 Other long term (current) drug therapy
CPT/HCPCS: 80061; 83036

== ENCOUNTER → 2023-05-16 14:17 | Outpatient (BNVA) | payer MEDICARE, OTHER, SELFPAY ==
[2023-05-16 14:07] VITALS: BP 141/90; BMI 29.6
== END ==
PROVIDERS: PCP Registered Nurse; Visit Provider Registered Nurse
DX: E78.5 Hyperlipidemia, unspecified (principal); Z00.00 Encounter for general adult medical examination without abnormal findings; E11.9 Type 2 diabetes mellitus without complications; Z23 Encounter for immunization
CPT/HCPCS: 80053; 80061; 83036; 85025

== ENCOUNTER → 2023-05-26 10:37 | Outpatient (BNVA) | payer MEDICARE, MEDICAID, SELFPAY ==
[2023-05-16 14:07] VITALS: BP 141/90; BMI 29.6
== END ==
PROVIDERS: PCP Registered Nurse; Visit Provider Registered Nurse
DX: Z01.419 Encounter for gynecological examination (general) (routine) without abnormal findings (principal)
CPT/HCPCS: 87070; 87205; 87624

== ENCOUNTER 2023-06-30 09:57 | Outpatient (CLI) | payer MEDICARE, MEDICAID, SELFPAY ==
[2023-05-16 14:07] VITALS: BP 141/90; BMI 29.6
--- NOTE | 2023-06-30 10:00 | MM_ITS ---
WS: [id number] SCREENING DIGITAL TOMOSYNTHESIS MAMMOGRAM WITH CAD HISTORY: SCREENING COMPARISON: 05/07/2022 Bilateral CC and MLO with tomosynthesis views submitted. Synthetic mammography reviewed. Computer aid ed detection analyzed. Breast composition: The breasts are heterogeneously dense, which may obscure small masses. No suspici ous masses, microcalcifications or architectural distortion. IMPRESSION: MM/[place] [id number] BI-RADS: 1-Negative FOLLOW UP: 1 Year Follow-up
== END 2023-06-30 09:58 | disposition home or self-care (01) ==
LOC: MOBLMAM 10:00
PROVIDERS: PCP Registered Nurse; Visit Provider Registered Nurse
DX: Z12.31 Encounter for screening mammogram for malignant neoplasm of breast (principal)
CPT/HCPCS: 77063; 77067; 87070; 87205; 87624

== ENCOUNTER → 2023-08-31 08:47 | Outpatient (BNVA) | payer OTHER, SELFPAY ==
[2023-08-30 12:32] VITALS: BP 141/90; BMI 29.6
== END ==
PROVIDERS: PCP Registered Nurse; Visit Provider Registered Nurse
DX: E11.9 Type 2 diabetes mellitus without complications (principal); Z79.899 Other long term (current) drug therapy
CPT/HCPCS: 80053; 81000; 82607; 83036; 85025

== ENCOUNTER → 2023-10-12 10:15 | Outpatient (BNVA) | payer OTHER, MEDICAID, SELFPAY ==
[2023-08-30 12:32] VITALS: BP 141/90; BMI 29.6
== END ==
PROVIDERS: PCP Registered Nurse; Visit Provider Specialist
DX: M19.011 Primary osteoarthritis, right shoulder
CPT/HCPCS: 73030

== ENCOUNTER 2023-12-29 13:59 | Emergency (ER) | payer MEDICARE, MEDICAID, SELFPAY ==
[2023-12-15 15:30] VITALS: BP 141/90; BMI 29.6
[2023-12-29 14:02] VITALS: BP 147/77; PULSE 95; RESP 19; TEMP 36.9; O2SAT 94; BMI 27.4
--- NOTE | 2023-12-29 14:10 | CTR_ITS ---
PROCEDURE INFORMATION: Exam: CT Abdomen And Pelvis With Contrast Exam date and time: 12/29/2023 3:32 PM Age: 58 years old Clinical indication: Abdominal pain; Additional info: Abd pain TECHNIQUE: Imaging protocol: Computed tomography of the abdomen and pelvis with contrast. Radiation optimization: All CT scans at this facility use at least one of these dose optimization techniques: automated exposure control; mA and/or kV adjustment per patient size (includes targeted exams where dose is matched to clinical indication); or iterative reconstruction. Contrast material: OMNI 350; Contrast volume: 100 ml; Contrast route: INTRAVENOUS (IV); COMPARISON: CT chest lung screening June 04, 2022 at 9:12 a.m.. RADIATION DOSE METRICS: Total DLP (mGy-cm): 541 FINDINGS: Lungs: Small amount of scarring or platelike atelectasis in the left lung base. Otherwise, unremarkable. Liver: Mild, diffuse fatty infiltration of the liver. Otherwise, unremarkable. Gallbladder and biliary ducts: Normal. No calcified stones. No ductal dilation. Pancreas: Normal. No ductal dilation. Spleen: Normal. No splenomegaly. Adrenal glands: Normal. No mass. Kidneys and ureters: A few right renal cysts, the largest measuring 3.5 cm, appear simple, and need no follow-up. Otherwise, unremarkable. Stomach and bowel: Diffuse thickening of the wall of the cecum, ascending colon, hepatic flexure, and transverse colon with adjacent fat stranding consistent with inflammatory bowel disease or infectious colitis. Otherwise, unremarkable. Appendix: No evidence of appendicitis. Intraperitoneal space: Tiny amount of free fluid in the pelvis. No other free intraperitoneal fluid. No free air. Vasculature: Tiny amounts of arterial plaque. Otherwise, unremarkable. Lymph nodes: Unremarkable. No enlarged lymph nodes. Urinary bladder: Unremarkable as visualized. Reproductive: Unremarkable as visualized. Bones/joints: Surgery lower lumbar spine and upper sacrum without obvious complication. Mild and moderate multilevel spondylosis. Unchanged mild L1 vertebral body compression deformity. Otherwise, unremarkable. Soft tissues: Small benign-appearing fat containing paraumbilical hernia. No other significant body wall abnormalities. Otherwise, unremarkable soft tissues. CT/CT abdomen pelvis w con* [id number] IMPRESSION: 1. Inflammatory bowel disease or infectious colitis involving the entire right colon and transverse colon. 2. Tiny amount of free fluid in the pelvis. 3. Mild, diffuse fatty infiltration of the liver. 4. Additional details as above.
--- NOTE | 2023-12-29 14:10 | W.ED.ABDPA2 ---
HPI - Abdominal Pain General: Chief Complaint: Abdominal Pain Stated Complaint: abd distention. n/v Time Seen by Provider: 12/29/23 14:02 Source: patient and EMS Mode of arrival: EMS Limitations: no limitations History of Present Illness: 58-year-old female who states that she has been having nausea vomiting and diffuse abdominal cramping since yesterday. States she was seen yesterday at [facility] as prescribed (had no improvement she had any imaging states she has had some worsening symptoms today denies any fevers. Associated Symptoms: Reports nausea; Denies chills, diarrhea, dysuria, fever(s) and vomiting Related Data Home Medications Medication Instructions Recorded Confirmed ascorbic acid (vitamin C) 500 mg 500 mg PO BEDTIME 02/23/22 11/18/23 tablet (Vitamin C) Previous Rx's Medication Instructions Recorded hydroxyzine HCl 50 mg tablet 50 mg PO QID PRN itching/anxiety 08/23/23 #120 tabs fluoxetine 40 mg capsule (Prozac) 40 mg PO DAILY #90 caps 09/08/23 ropinirole 4 mg tablet 4 mg PO BEDTIME #90 tabs 09/08/23 trazodone 100 mg tablet 300 mg (3 x 100 mg) PO .HS PRN 09/08/23 insomnia #270 tabs dulaglutide 0.75 mg/0.5 mL See Rx Instructions .Route 09/13/23 subcutaneous pen injector .COMPLEX 60 days #8 ea (Trulicity) epinephrine 0.3 mg/0.3 mL 0.3 mg (0.3 mL) IM Q4H PRN 10/05/23 injection, auto-injector (EpiPen anaphylaxis #2 ea 2-Sloan) acetaminophen 300 mg-codeine 30 mg 1 tab PO DAILY PRN severe pain 11/10/23 tablet (scale score 7-10) 5 days #4 tabs ciprofloxacin HCl 500 mg tablet 500 mg PO BID 10 days #20 tabs 11/18/23 (Cipro) dicyclomine 20 mg tablet 20 mg PO BID PRN abdominal pain 7 11/18/23 days #14 tabs metronidazole 500 mg tablet 500 mg PO BID 10 days #20 tabs 11/18/23 ciprofloxacin HCl 500 mg tablet 500 mg PO BID #14 tabs 12/29/23 (Cipro) hydrocodone 5 mg-acetaminophen 325 1 tab PO Q6H PRN pain #14 tabs 12/29/23 mg tablet metronidazole 500 mg tablet 500 mg PO Q8H 7 days #21 tabs 12/29/23 Allergies Allergy/AdvReac Type Severity Reaction Status Date / Time adhesive tape Allergy Intermediate ADR-Itching Verified 12/29/23 14:10 thioridazine [From Mellaril] Allergy rash and Verified 12/29/23 14:10 itching tramadol Allergy pt has Verified 12/29/23 14:10 seizures Honey bee venom Allergy Severe Anaphylaxis Uncoded 12/29/23 14:10 Review of Systems Const: Denies: fever(s), chills, body aches or change in appetite ENMT: Denies: throat pain or dental pain Card: Denies: chest pain Resp: Denies: dyspnea GI: Reports: abdominal pain and nausea; Denies: vomiting or diarrhea : Denies: dysuria Musc: Denies: neck pain or back pain Skin/Breast: Denies: rash Neuro: Denies: headache(s) PFSH ED PFSH: Medical History Nicotine dependence, cigarettes, uncomplicated Psychiatric care Restless leg syndrome Hyperlipidemia Seizures COPD (chronic obstructive pulmonary disease) Enrolled in chronic care management Type 2 diabetes mellitus without complication, with no history of insulin use Lumbar post-laminectomy syndrome Migraine headache Surgical History History of lumbar spinal fusion 05/27/2021 History of decompression of ulnar nerve (10/17/17) 10/17/2017 Dr. Cabrera: Open release of left elbow with subcutaneous transposition. History of lumbar surgery (07/12/16) 07/12/2016 Dr. Carol Cabrera: Left L4-L5, L5-S1 laminotomy/foraminotomy History of cervical spinal surgery (1998) 01/08/2016 Dr. Kamila Cabrera: ACDFF surgical site exploration, postoperative cervical wound seroma. 12/29/2015 Dr. Carol Cabrera: C4-C5 ACDF 5, removal of C5-C7 anterior plate and screw fixation hardware. [place], [place] C5-C7 ACDFF History of carpal tunnel release of both wrists History of hernia repair Family History Sister Diabetes Mother Diabetes Hypertension Cancer Father Diabetes Hypertension Cancer Social History Smoking and tobacco/nicotine status: current every day tobacco/nicotine user cigarettes Packs smoked per day: 1 Years cigarettes smoked: 50 Second hand smoke exposure: Yes Alcohol intake: current Alcohol intake frequency: holidays/special occasions only Alcohol type: hard liquor Substance/Drug Use: current Substance/Drug use frequency: few times a week Other substance/drug use details: Helps with sleep. Adopted: No Caregiver/support person: No Lives independently: Yes Household members: none Housing: House Marital status: Number of children: 3 Number of grandchildren: 3 Highest education level completed: GED or Equivalent service: No Current occupational status: disabled Pets and animals: Yes Pets & animals: dog(s) and farm animals Pets & animal details: goats, horses Leisure activites: music and other Leisure activities details: crafts Sexually active: No Do you think of yourself as: Straight/Heterosexual Current gender identity: Female Kassi/Latter-Day: Episcopal Special kassi needs: No Agree to transfusion: Yes Female Reproductive History: Para: 3 Physical Exam Const: COMMON NORMALS: no acute distress, patient oriented x3 and healthy appearing HENMT: COMMON NORMALS: normocephalic and atraumatic HEAD & SCALP: normocephalic and atraumatic Eye: COMMON NORMALS: Equal, round and reactive pupils present and EOMs intact bilaterally PUPIL: Yes Equal, round and reactive pupils present Neck/C-Spine: COMMON NORMALS: full ROM and supple Chest: COMMONS NORMALS: normal inspection of the chest and normal palpation of entire chest wall Resp: COMMON NORMALS: normal respiratory effort, No retractions, No use of accessory muscles and clear to auscultation bilaterally AUSCULTATION: clear to auscultation bilaterally Cardio: COMMON NORMALS: regular rate, regular rhythm and No murmurs present (Cardio) RATE: regular rate RHYTHM: regular rhythm GI: COMMON NORMALS: Normal to inspection, nondistended, normoactive bowel sounds present, Soft to palpation, non-tender and no masses PALPATION: Yes Soft to palpation Extremity: COMMON NORMALS: normal to inspection and full ROM Neuro: COMMON NORMALS: patient oriented x3, moves all extremities and no focal motor deficits Psych: COMMON NORMALS: mental status grossly normal, Normal thought process present and cooperative THOUGHT PROCESS: Normal thought process present Skin: COMMON NORMALS: no rashes or lesions noted and no wounds GENERAL SKIN EXAM: no rashes or lesions noted Course Vital Signs: Vital signs: Vital Signs Temperature 98.4 F 12/29/23 14:02 Pulse Rate 95 12/29/23 14:02 Respiratory Rate 19 H 12/29/23 14:02 Blood Pressure 147/77 12/29/23 14:02 Pulse Oximetry 94 12/29/23 14:02 Oxygen Delivery Me thod Room Air 12/29/23 14:02 MDM - Abdominal Pain Medical Decision Making Patient presents with abdominal pain CT scan shows colitis she feels much improved her exam is benign no signs of ischemic bowel we will start her on Cipro Flagyl she has appoint with the surgeon in 1 week she is to follow-up as scheduled return if worsening. Medical Records I reviewed the patient's medical records. Lab Data I reviewed the patient's lab results. 12/29/23 14:20 12/29/23 14:49 Labs/Radiology: Radiology Impressions Abdomen/Pelvis CT 12/29/23 14:10 IMPRESSION: 1. Inflammatory bowel disease or infectious colitis involving the entire right colon and transverse colon. 2. Tiny amount of free fluid in the pelvis. 3. Mild, diffuse fatty infiltration of the liver. 4. Additional details as above. Laboratory Results WBC 12.40 10^3/uL (3.29-11.43) H 12/29/23 14:20 RBC 4.66 10^6/uL (3.85-5.65) 12/29/23 14:20 Hgb 14.10 g/dL (11.27-16.99) 12/29/23 14:20 Hct 41.5 % (36-47) 12/29/23 14:20 MCV 89.1 fl (85-98) 12/29/23 14:20 MCH 30.3 pg (27-33) 12/29/23 14:20 MCHC 34.0 g/dL (30-55) 12/29/23 14:20 RDW 12.8 % (12.1-15.1) 12/29/23 14:20 Plt Count 243 10^3/cmm (157-399) 12/29/23 14:20 MPV 10.8 fL (7.4-10.4) H 12/29/23 14:20 Neut % (Auto) 74.3 % 12/29/23 14:20 Lymph % (Auto) 18.9 % 12/29/23 14:20 [place] % (Auto) 4.8 % 12/29/23 14:20 Eos % (Auto) 1.0 % 12/29/23 14:20 Baso % (Auto) 0.4 % 12/29/23 14:20 Neut # (Auto) 9.22 10^3/uL (1.8-7.7) H 12/29/23 14:20 Lymph # (Auto) 2.3 10^3/uL (0.8-4.8) 12/29/23 14:20 [place] # (Auto) 0.6 10^3/uL (0.2-0.9) 12/29/23 14:20 Eos # (Auto) 0.1 10^3/uL (0.0-0.8) 12/29/23 14:20 Baso # (Auto) 0.1 10^3/uL (0.0-0.1) 12/29/23 14:20 Nucleated RBC % (auto) 0 % 12/29/23 14:20 Nucleated RBCs # 0.0 /100WBC 12/29/23 14:20 Sodium 139 mmol/L (136-145) 12/29/23 14:49 Potassium 3.7 mmol/L (3.5-5.1) 12/29/23 14:49 Chloride 100 mmol/L (98-107) 12/29/23 14:49 Carbon Dioxide 29 mmol/L (22-29) 12/29/23 14:49 Anion Gap 13.7 (5-19) 12/29/23 14:49 BUN 9 mg/dL (8-23) 12/29/23 14:49 Creatinine 0.7 mg/dL (0.5-0.9) 12/29/23 14:49 GFR Calculation 85.4 mL/min (90-130) L 12/29/23 14:49 Glucose 180 mg/dL (65-115) H 12/29/23 14:49 Calculated Osmolality 291 mOsm/kg (285-295) 12/29/23 14:49 Calcium 8.4 mg/dL (8.5-10.5) L 12/29/23 14:49 Total Bilirubin 0.3 mg/dL (0.15-1.2) 12/29/23 14:49 AST 12 U/L (0-32) 12/29/23 14:49 ALT 15 U/L (0-33) 12/29/23 14:49 Alkaline Phosphatase 78 U/L (35-105) 12/29/23 14:49 Total Protein 6.4 g/dL (6.6-8.7) L 12/29/23 14:49 Albumin 3.8 g/dL (3.5-5.2) 12/29/23 14:49 Globulin 2.6 g/dL (1.3-4.6) 12/29/23 14:49 Lipase 13 U/L (13-60) 12/29/23 14:49 Urine Color Yellow (Yellow) 12/29/23 15:50 Urine Appearance Clear (CLEAR) 12/29/23 15:50 Urine pH 6.0 (5-7) 12/29/23 15:50 Ur Specific [place] 1.026 (1.005-1.030) 12/29/23 15:50 Urine Protein Negative (Negative) 12/29/23 15:50 Urine Glucose (UA) Negative (Normal) 12/29/23 15:50 Urine Ketones 1+ (Negative) H 12/29/23 15:50 Urine Blood Negative (Negative) 12/29/23 15:50 Urine Nitrate Negative (Negative) 12/29/23 15:50 Urine Bilirubin Negative (Negative) 12/29/23 15:50 Urine Urobilinogen 1.0 mg/dL (Negative) 12/29/23 15:50 Ur Leukocyte Esterase 1+ (Negative) A 12/29/23 15:50 Urine RBC 0-2 /hpf (0-2) 12/29/23 15:50 Urine WBC 6-10 /hpf (0-5) 12/29/23 15:50 Ur Squamous Epith Cells 6-10 /hpf (0-5) 12/29/23 15:50 Amorphous Sediment Not Reportable 12/29/23 15:50 Urine Bacteria 1+ /hpf (NONE) H 12/29/23 15:50 Hyaline Casts 0.81 /lpf 12/29/23 15:50 All radiology interpretation(s) finalized by discharge Discharge Plan Discharge Patient Disposition: Home Clinical Impression: Colitis Condition: Stable Prescriptions: New hydrocodone-acetaminophen 5-325 mg tablet 1 tab PO Q6H PRN (Reason: pain) Qty: 14 0RF metronidazole 500 mg tablet 500 mg PO Q8H 7 Days Qty: 21 0RF ciprofloxacin HCl [Cipro] 500 mg tablet 500 mg PO BID Qty: 14 0RF No Action Trulicity 0.75 mg/0.5 mL pen injector See Rx Instructions .ROUTE .COMPLEX 60 Days Qty: 8 0RF Dose Instruction: INJECT 0.75 MG SUBCUTANEOUSLY ONCE WEEKLY FOR 90 DAYS Rx Instructions: INJECT 0.75 MG SUBCUTANEOUSLY ONCE WEEKLY FOR 90 DAYS. fluoxetine [Prozac] 40 mg capsule 40 mg PO DAILY Qty: 90 0RF trazodone 100 mg tablet 300 mg PO .HS PRN (Reason: insomnia) Qty: 270 0RF ropinirole 4 mg tablet 4 mg PO BEDTIME Qty: 90 0RF acetaminophen-codeine 300-30 mg tablet 1 tab PO DAILY PRN (Reason: severe pain (scale score 7-10)) 5 Days Qty: 4 0RF Rx Instructions: Pt fills every 1-2mo metronidazole 500 mg tablet 500 mg PO BID 10 Days Qty: 20 0RF ciprofloxacin HCl [Cipro] 500 mg tablet 500 mg PO BID 10 Days Qty: 20 0RF dicyclomine 20 mg tablet 20 mg PO BID PRN (Reason: abdominal pain) 7 Days Qty: 14 0RF hydroxyzine HCl 50 mg tablet 50 mg PO QID PRN (Reason: itching/anxiety) Qty: 120 2RF epinephrine [EpiPen 2-Sloan] 0.3 mg/0.3 mL auto-injector 0.3 mg IM Q4H PRN (Reason: anaphylaxis) Qty: 2 0RF Vitamin C 500 mg Tablet 500 mg PO BEDTIME Discharge Orders: Discharge ED (Routine); Ordered 12/29/23 Ordered By: Tang Lira Referrals: Margoth Matias FNP [Primary Care Provider] - Discharge Diet: Advance as tolerated Discharge Activity: Resume usual activity Patient Instructions: Colitis (ED), Opioid Safety Coding Level of Care Code ED Science Professor for Richard Connell
[2023-12-29 14:36] LABS: Basophils # 0.1 10^3/uL (0.0-0.1); Basophils % 0.4 %; Eosinophils # 0.1 10^3/uL (0.0-0.8); Hematocrit 41.5 % (36-47); Lymphocytes # 2.3 10^3/uL (0.8-4.8); Lymphocytes % 18.9 %; Mean Corpuscular Hemoglobin 30.3 pg (27-33); Mean Corpuscular Volume 89.1 fl (85-98); Mean Platelet Volume 10.8 fL (7.4-10.4); Monocytes # 0.6 10^3/uL (0.2-0.9); Monocytes % 4.8 %; Neutrophils # 9.22 10^3/uL (1.8-7.7); Neutrophils % 74.3 %; Nucleated Red Blood Cells % 0 %; Platelet Count 243 10^3/cmm (157-399); Red Blood Count 4.66 10^6/uL (3.85-5.65); Red Cell Distribution Width 12.8 % (12.1-15.1)
[2023-12-29] MEDS: diphenhydrAMINE 50 mg/mL SDV 1mL 25 MG IVP (15:02)
[2023-12-29] MEDS: metoclopramide 5 mg/mL SDV 2 mL IVP (15:02)
[2023-12-29 15:15] LABS: Alanine Aminotransferase 15 U/L (0-33); Albumin Level 3.8 g/dL (3.5-5.2); Alkaline Phosphatase 78 U/L (35-105); Anion Gap 13.7 (5-19); Aspartate Amino Transferase 12 U/L (0-32); Blood Urea Nitrogen 9 mg/dL (8-23); Calcium 8.4 mg/dL (8.5-10.5); Carbon Dioxide 29 mmol/L (22-29); Chloride 100 mmol/L (98-107); Creatinine Clr Calc Pharmacy 77.2766; Globulin 2.6 g/dL (1.3-4.6); Glomerular Filtration Rate 85.4 mL/min (90-130); Glucose 180 mg/dL (65-115); Lipase 13 U/L (13-60); Osmolality Calculated 291 mOsm/kg (285-295); Potassium 3.7 mmol/L (3.5-5.1); Sodium 139 mmol/L (136-145); Total Bilirubin 0.3 mg/dL (0.15-1.2); Total Protein 6.4 g/dL (6.6-8.7)
[2023-12-29] MEDS: iohexol 350 mg/mL 500 mL Btl (per mL) IV (15:35)
[2023-12-29 15:59] LABS: Bilirubin Urine Negative (Negative); Blood Urine Negative (Negative); Glucose Urine UA Negative (Normal); Ketones Urine 1+ (Negative); Leukocyte Esterase Urine 1+ (Negative); Nitrate Urine Negative (Negative); Protein Urine Negative (Negative); Specific Gravity, Urine 1.026 (1.005-1.030); Urine Appearance Clear (CLEAR); Urine Color Yellow (Yellow)
[2023-12-29 16:02] LABS: Add Urine Microscopic? YES; Bacteria Urine 1+ /hpf; Hyaline Casts Urine 0.81 /lpf; RBC Urine 0-2 /hpf (0-2)
[2023-12-29 16:15] VITALS: BP 136/71; PULSE 94; O2SAT 91
[2023-12-29 16:35] VITALS: BP 136/71; PULSE 94; O2SAT 92
== END 2023-12-29 16:44 | disposition home or self-care (01) ==
PROVIDERS: Emergency Provider Emergency Medicine; PCP Registered Nurse
DX: K52.9 Noninfective gastroenteritis and colitis, unspecified (principal); Z79.85 Long-term (current) use of injectable non-insulin antidiabetic drugs; F17.210 Nicotine dependence, cigarettes, uncomplicated; E78.5 Hyperlipidemia, unspecified; J44.9 Chronic obstructive pulmonary disease, unspecified; E11.9 Type 2 diabetes mellitus without complications
CPT/HCPCS: 36415; 74177; 80053; 81001; 83690; 85025; 96374; 96375; 99285; J1200; J2765

== ENCOUNTER → 2024-01-09 09:03 | Outpatient (BNVA) | payer OTHER, MEDICAID, SELFPAY ==
[2023-12-15 15:30] VITALS: BP 141/90; BMI 29.6
== END ==
PROVIDERS: PCP Registered Nurse; Referring Provider Registered Nurse; Visit Provider Surgery
DX: R93.5 Abnormal findings on diagnostic imaging of other abdominal regions, including retroperitoneum; K92.2 Gastrointestinal hemorrhage, unspecified; K43.2 Incisional hernia without obstruction or gangrene
CPT/HCPCS: 99204

== ENCOUNTER 2024-01-16 14:11 | Outpatient (CLI) | payer OTHER, MEDICAID, SELFPAY ==
[2023-12-15 15:30] VITALS: BP 141/90; BMI 29.6
--- NOTE | 2024-01-16 15:15 | MR_ITS ---
WS: [id number] MRI RIGHT SHOULDER NONCONTRAST TECHNIQUE: Sagittal T2, coronal T1, T2 and proton density imaging. Axial gradient PDE imaging. CLINICAL INFORMATION: M19.011 - Primary osteoarthritis, right shoulder COMPARISON: None. FINDINGS: Moderate degenerative arthritis of the AC joint with fluid and edema. Subacromial spurring with sligh t impingement distal supraspinatus. Subcoracoid effusion. Fluid or small ganglion cyst extending into the rotator interval. Small glenohumeral effusion. Normal bone marrow signal in the humerus. Diffuse increased T2 signal normality involving the intra-articular biceps tendon compatible with tendinopat hy. Chronic thinning of the supraspinatus with tiny distal undersurface tear. Calcific tendinopathy d istally. Infraspinatus appears intact. Normal teres minor. Normal subscapularis. Biceps tendon appears intact within the bicipital groove. Advanced degenerative narrowing of the glenohumeral articulation with h ypertrophic changes. Chronic appearing thinning and fraying of the glenoid labrum. MR/MR shoulder RT wo con* [id number] IMPRESSION: 1. Moderate degenerative arthritis of the AC joint with fluid and edema. Subac romial spurring with slight impingement on the distal supraspinatus. 2. Calcific tendinopathy involving the distal supraspinatus with a tiny distal undersurface tear. 3. Rotator cuff is otherwise intact. 4. Diffuse enlargement with increased signal involving the intra-articular bic eps tendon compatible with tendinopathy. 5. Advanced degenerative arthritis of the glenohumeral articulation with hyper trophic spurring. 6. Small subcoracoid effusion. 7. Small ganglion cyst or fluid at the rotator interval measuring 1.4 x 0.5 cm .
== END 2024-01-16 14:12 | disposition home or self-care (01) ==
PROVIDERS: PCP Registered Nurse; Visit Provider Specialist
DX: M19.011 Primary osteoarthritis, right shoulder (principal); M25.711 Osteophyte, right shoulder; M75.91 Shoulder lesion, unspecified, right shoulder; M75.21 Bicipital tendinitis, right shoulder
CPT/HCPCS: 73221

== ENCOUNTER 2024-01-30 08:35 | Day surgery (SDC) | payer MEDICARE, MEDICAID, SELFPAY ==
[2023-12-15 15:30] VITALS: BP 141/90; BMI 29.6
[2024-01-30 08:55] VITALS: BP 127/91; PULSE 120; RESP 18; TEMP 36.5; O2SAT 94
[2024-01-30 08:56] VITALS: BMI 27.4
[2024-01-30] MEDS: sodium chloride 0.9% 1,000 ML 30 ML IV (09:00)
[2024-01-30 09:01] LABS: Glucose Point of Care 224 mg/dL (70-110)
--- NOTE | 2024-01-30 09:32 | P.ANESASSM_ITS ---
Pre-Anesthetic Assessment Height/Weight: Height 5 ft 2 in Weight 150 lb Temp Pulse Resp BP Pulse Ox 97.7 F 120 H 18 127/91 94 01/30/24 08:55 01/30/24 08:55 01/30/24 08:55 01/30/24 08:55 01/30/24 08:55 Preop Diagnosis: Colonoscopy/EGD Operation Date: 01/30/24 09:45 Proposed Procedures p EGD- 16806, 28873, G0121, Z12.11, R10.9(Not Applicable) - Heath Matt DO s Colonoscopy(Not Applicable) - Heath Matt DO Was Beta Berenice taken within 24 hours: N/A Was Clonidine taken within 24 hours: N/A Last intake: Intake Last Liquid Date 01/29/24 Last Liquid Time 23:50 Last Solid Date 01/28/24 Last Solid Time 19:00 Social Tobacco and No alcohol Exam alert, oriented x 3, clear to auscultation bilaterally and regular rate & rhythm Airway Submandibular: within normal limits Cervical ROM: Other (Limited range of motion from prior cervical procedure) Mallampati: Class II Dentition: false Anesthetic Plan ASA status: 3 Anesthesia: MAC Other: No prior issues with anesthesia Completed bowel prep History of cervical fusion, on chronic pain meds Type 2 diabetes on dulaglutide, last taken 01/23/2024. AM BS 224 Patient notes a history of seizures, not on AEDs. Most recent seizure 3 years ago Labs reviewed from December METs greater than 4 Plan for MAC anesthesia Medications/Allergies Home Medications Medication Instructions Recorded Confirmed Last Taken Type ascorbic acid (vitamin C) 500 mg 500 mg PO BEDTIME 02/23/22 01/26/24 1 Week Ago History tablet (Vitamin C) ~01/23/24 epinephrine 0.3 mg/0.3 mL 0.3 mg (0.3 mL) IM Q4H PRN 10/05/23 01/26/24 1 Week Ago Rx injection, auto-injector (EpiPen anaphylaxis #2 ea ~01/23/24 2-Sloan) acetaminophen 300 mg-codeine 30 mg 1 tab PO DAILY PRN severe pain 11/10/23 01/26/24 1 Week Ago Rx tablet (scale score 7-10) 5 days #4 tabs ~01/23/24 dicyclomine 20 mg tablet 20 mg PO BID PRN abdominal pain 7 11/18/23 01/26/24 1 Week Ago Rx days #14 tabs ~01/23/24 ciprofloxacin HCl 500 mg tablet 500 mg PO BID #14 tabs 12/29/23 01/26/24 1 Week Ago Rx (Cipro) ~01/23/24 hydrocodone 5 mg-acetaminophen 325 1 tab PO Q6H PRN pain #14 tabs 12/29/23 01/26/24 1 Week Ago Rx mg tablet ~01/23/24 diphenhydramine HCl 12.5 mg/5 mL 12.5 mg PO TID PRN Allergic 01/03/24 01/26/24 1 Week Ago History oral liquid (Allergy Reaction ~01/23/24 (diphenhydramine)) fluoxetine 40 mg capsule (Prozac) 40 mg PO DAILY #90 caps 01/03/24 01/26/24 1 Week Ago Rx ~01/23/24 hydroxyzine HCl 50 mg tablet 50 mg PO QID PRN itching/anxiety 01/03/24 01/26/24 1 Week Ago Rx #120 tabs ~01/23/24 metoclopramide HCl 5 mg/5 mL oral 5 mg PO TID PRN muscle spasms 01/03/24 01/26/24 1 Week Ago History solution ~01/23/24 ropinirole 4 mg tablet 4 mg PO BEDTIME #90 tabs 01/03/24 01/26/24 1 Week Ago Rx ~01/23/24 trazodone 100 mg tablet 300 mg (3 x 100 mg) PO .HS PRN 01/03/24 01/26/24 1 Week Ago Rx insomnia #270 tabs ~01/23/24 sulfasalazine 500 mg tablet 1 g (2 x 500 mg) PO BID 2 months 01/09/24 01/26/24 1 Week Ago Rx #240 tabs ~01/23/24 dulaglutide 0.75 mg/0.5 mL See Rx Instructions .Route 01/23/24 01/26/24 1 Week Ago Rx subcutaneous pen injector .COMPLEX #4 mL ~01/23/24 (Trulicity) pantoprazole 40 mg tablet,delayed 40 mg PO BID 01/30/24 01/30/24 01/29/24 History release (Protonix) Allergies Allergy/AdvReac Type Severity Reaction Status Date / Time adhesive tape Allergy Intermediate ADR-Itching Verified 01/09/24 09:34 thioridazine [From Mellaril] Allergy rash and Verified 01/09/24 09:34 itching tramadol Allergy pt has Verified 01/09/24 09:34 seizures Honey bee venom Allergy Severe Anaphylaxis Uncoded 01/09/24 09:34 Current Medications Generic Name Dose Route Start Last Admin Trade Name Freq PRN Reason Stop Dose Admin Sodium Chloride 1,000 mls @ 30 mls/hr 01/30/24 08:45 01/30/24 09:00 Sodium Chloride 0.9% IV 01/31/24 08:44 30 mls/hr .Q24H DAVID Administration PFSH Anesthesia Medical History Nicotine dependence, cigarettes, uncomplicated Psychiatric care Restless leg syndrome Hyperlipidemia Seizures COPD (chronic obstructive pulmonary disease) Enrolled in chronic care management Type 2 diabetes mellitus without complication, with no history of insulin use Lumbar post-laminectomy syndrome Migraine headache Surgical History History of lumbar spinal fusion 05/27/2021 History of decompression of ulnar nerve (10/17/17) 10/17/2017 Dr. Cabrera: Open release of left elbow with subcutaneous transposition. History of lumbar surgery (07/12/16) 07/12/2016 Dr. Carol Cabrera: Left L4-L5, L5-S1 laminotomy/foraminotomy History of cervical spinal surgery (1998) 01/08/2016 Dr. Kamila Cabrera: ACDFF surgical site exploration, postoperative cervical wound seroma. 12/29/2015 Dr. Carol Cabrera: C4-C5 ACDF 5, removal of C5-C7 anterior plate and screw fixation hardware. [place], [place] C5-C7 ACDFF History of carpal tunnel release of both wrists History of hernia repair Family History Sister Diabetes Mother Diabetes Hypertension Cancer Father Diabetes Hypertension Cancer Social History Smoking and tobacco/nicotine status: never used tobacco/nicotine Second hand smoke exposure: Yes Alcohol intake: current Alcohol intake frequency: holidays/special occasions only Alcohol type: hard liquor Substance/Drug Use: current Substance/Drug use frequency: few times a week Other substance/drug use details: Helps with sleep. Adopted: No Caregiver/support person: No Lives independently: Yes Household members: none Housing: House Marital status: Number of children: 3 Number of grandchildren: 3 Highest education level completed: GED or Equivalent service: No Current occupational status: disabled Pets and animals: Yes Pets & animals: dog(s) and farm animals Pets & animal details: goats, horses Leisure activites: music and other Leisure activities details: crafts Sexually active: No Do you think of yourself as: Straight/Heterosexual Current gender identity: Female Kassi/Denominational: Druze Special kassi needs: No Agree to transfusion: Yes Female Reproductive History Para: 3 Data Anesthesia Cardiac Studies: No Data to Display
--- NOTE | 2024-01-30 10:17 | W.PM.OPSUD ---
Surgery/Procedure H&P Update DATE OF PROCEDURE: January 30, 2024 DATE H&P PERFORMED: 01/09/24 H&P UPDATE INFORMATION: I have reviewed H&P completed within last 30 days, I have examined patient prior to procedure and No changes to prior documentation PREOP DIAGNOSIS: Colonoscopy/EGD PLANNED PROCEDURE: Operation Date: 01/30/24 09:45 Proposed Procedures p EGD- 41746, 49652, G0121, Z12.11, R10.9(Not Applicable) - DO [place] Colonoscopy(Not Applicable) - Heath Matt DO
[2024-01-30 10:54] VITALS: BP 95/66; PULSE 98; RESP 20; TEMP 36.4; O2SAT 94
[2024-01-30 11:05] VITALS: BP 103/73; PULSE 105; RESP 20; O2SAT 94
--- NOTE | 2024-01-30 11:20 | ANE.PACU2 ---
Inpatient post-anesthesia follow up: Airway intact: Yes Vital signs: Temperature 97.6 F Pulse Rate 105 Respiratory Rate 20 Blood Pressure 103/73 Pulse Oximetry 94 Oxygen Delivery Me thod Room Air Oxygen Flow Rate 4 Fraction of Inspir ed Oxygen Hydration adequate: Yes Nausea and vomiting: No Pain level: 1 Mental status: Baseline
== END 2024-01-30 11:20 | disposition home or self-care (01) ==
PROVIDERS: PCP Registered Nurse; Visit Provider Surgery
PROC: 0DJ08ZZ Inspection of Upper Intestinal Tract, Via Natural or Artificial Opening Endoscopic (ICD-10-PCS; CPT 43235; principal; 2024-01-30 09:45)
PROC: 0DJD8ZZ Inspection of Lower Intestinal Tract, Via Natural or Artificial Opening Endoscopic (ICD-10-PCS; CPT 45378; 2024-01-30 09:45)
DX: Z12.11 Encounter for screening for malignant neoplasm of colon (principal); R10.9 Unspecified abdominal pain; D12.8 Benign neoplasm of rectum; K51.40 Inflammatory polyps of colon without complications; K57.30 Diverticulosis of large intestine without perforation or abscess without bleeding; K62.89 Other specified diseases of anus and rectum; K52.9 Noninfective gastroenteritis and colitis, unspecified; Z98.1 Arthrodesis status
CPT/HCPCS: 36416; 43239; 45380; 45385; 82962; 88305; J2704; J7030

== ENCOUNTER → 2024-02-06 10:33 | Outpatient (BNVA) | payer MEDICARE, MEDICAID, SELFPAY ==
[2023-12-15 15:30] VITALS: BP 141/90; BMI 29.6
== END ==
PROVIDERS: PCP Registered Nurse; Visit Provider Specialist
DX: M19.011 Primary osteoarthritis, right shoulder (principal)
CPT/HCPCS: 20610; 99214; J1100; J2795; J3301

== ENCOUNTER 2024-02-07 06:00 | Outpatient (RCR) | payer MEDICARE, MEDICAID, SELFPAY ==
[2023-12-15 15:30] VITALS: BP 141/90; BMI 29.6
== END 2024-02-16 23:59 | disposition home or self-care (01) ==
LOC: WPT 06:00
PROVIDERS: PCP Registered Nurse; Visit Provider Specialist
DX: M25.511 Pain in right shoulder (principal)
CPT/HCPCS: 97110; 97112; 97140; 97162; 97530

== ENCOUNTER → 2024-02-13 14:41 | Outpatient (BNVA) | payer MEDICARE, MEDICAID, SELFPAY ==
[2023-12-15 15:30] VITALS: BP 141/90; BMI 29.6
== END ==
PROVIDERS: PCP Registered Nurse; Visit Provider Surgery
DX: K43.2 Incisional hernia without obstruction or gangrene (principal); Z09 Encounter for follow-up examination after completed treatment for conditions other than malignant neoplasm; K52.9 Noninfective gastroenteritis and colitis, unspecified
CPT/HCPCS: 99214

== ENCOUNTER 2024-03-01 11:41 | Outpatient (RCR) | payer MEDICARE, MEDICAID, SELFPAY ==
[2023-12-15 15:30] VITALS: BP 141/90; BMI 29.6
== END 2024-03-17 23:59 | disposition home or self-care (01) ==
LOC: WPT 11:41
PROVIDERS: PCP Registered Nurse; Visit Provider Specialist
DX: M25.511 Pain in right shoulder (principal)
CPT/HCPCS: 97110; 97112; 97140; 97530

== ENCOUNTER 2024-03-06 06:36 | Day surgery (SDC) | payer MEDICARE, MEDICAID, SELFPAY ==
[2023-12-15 15:30] VITALS: BP 141/90; BMI 29.6
[2024-03-06] VITALS (11 sets, daily range): BP systolic 118–167; BP diastolic 71–100; PULSE 95–106; RESP 16–18; TEMP 36.2–36.4; O2SAT 91–98; BMI 27.2
--- NOTE | 2024-03-06 06:46 | W.PM.OPSUD ---
Surgery/Procedure H&P Update DATE OF PROCEDURE: March 06, 2024 DATE H&P PERFORMED: 02/13/24 H&P UPDATE INFORMATION: I have reviewed H&P completed within last 30 days, I have examined patient prior to procedure and No changes to prior documentation PLANNED PROCEDURE: Operation Date: 03/06/24 08:30 Proposed Procedures p lap recurrent incisional hernia repair w/ mesh - 51388, k43.02(Not Applicable) - Heath Matt DO
[2024-03-06] MEDS: sodium chloride 0.9% 1,000 ML 30 ML IV (07:13)
[2024-03-06 07:17] LABS: Glucose Point of Care 136 mg/dL (70-110)
--- NOTE | 2024-03-06 07:38 | P.ANESASSM_ITS ---
Pre-Anesthetic Assessment Height/Weight: Height 1.57 m Weight 67.585 kg Temp Pulse Resp BP Pulse Ox O2 Del Method 97.5 F L 102 H 18 167/100 94 Room Air 03/06/24 06:53 03/06/24 06:53 03/06/24 06:53 03/06/24 06:53 03/06/24 06:53 03/06/24 06:58 Operation Date: 03/06/24 08:30 Proposed Procedures p lap recurrent incisional hernia repair w/ mesh - 26395, k43.02(Not Applicable) - Heath Matt DO Familial anesthetic complications: None Was Beta Berenice taken within 24 hours: N/A Was Clonidine taken within 24 hours: N/A Last intake: Intake Last Liquid Date 03/05/24 Last Liquid Time 23:00 Last Solid Date 03/05/24 Last Solid Time 21:00 Social Tobacco and No alcohol Exam alert, oriented x 3, clear to auscultation bilaterally and regular rate & rhythm Airway Mallampati: Class II Dentition: false Pulmonary Chronic Obstructive Pulmonary Disease Metabolic Hyperlipidemia Musc/skel cervical fusion Neuropsych Seizure Anesthetic Plan ASA status: 3 Anesthesia: General Risk of > 500 ml blood loss (7ml/kg in children): No Medications/Allergies Home Medications Medication Instructions Recorded Confirmed Last Taken Type epinephrine 0.3 mg/0.3 mL 0.3 mg (0.3 mL) IM Q4H PRN 10/05/23 03/05/24 1 Week Ago Rx injection, auto-injector (EpiPen anaphylaxis #2 ea ~01/23/24 2-Sloan) dicyclomine 20 mg tablet 20 mg PO BID PRN abdominal pain 7 11/18/23 03/05/24 1 Week Ago Rx days #14 tabs ~01/23/24 diphenhydramine HCl 12.5 mg/5 mL 12.5 mg PO TID PRN Allergic 01/03/24 03/05/24 1 Week Ago History oral liquid (Allergy Reaction ~01/23/24 (diphenhydramine)) metoclopramide HCl 5 mg/5 mL oral 5 mg PO TID PRN muscle spasms 01/03/24 03/05/24 03/01/24 History solution pantoprazole 40 mg tablet,delayed 40 mg PO BID 01/30/24 03/05/24 03/05/24 History release (Protonix) albuterol sulfate 2.5 mg/3 mL 2.5 mg (3 mL) inhalation Q4H PRN 02/03/24 03/06/24 03/05/24 Rx (0.083 %) solution for nebulization bronchospasm 10 days #90 mL nebulizer kit & tubing #1 ea 02/03/24 02/27/24 Unknown Rx sulfasalazine 500 mg tablet 1.5 g (3 x 500 mg) PO BID 1 month 02/13/24 03/05/24 03/05/24 Rx #180 tabs fluoxetine 40 mg capsule (Prozac) 40 mg PO DAILY #90 caps 02/16/24 03/05/24 03/05/24 Rx hydroxyzine HCl 50 mg tablet 50 mg PO QID PRN itching/anxiety 02/16/24 03/05/24 03/05/24 Rx #120 tabs ropinirole 4 mg tablet 4 mg PO BEDTIME #90 tabs 02/16/24 03/05/24 03/05/24 Rx trazodone 100 mg tablet 300 mg (3 x 100 mg) PO .HS PRN 02/16/24 03/05/24 03/05/24 Rx insomnia #270 tabs dulaglutide 0.75 mg/0.5 mL See Rx Instructions .Route 02/22/24 03/05/24 02/26/24 Rx subcutaneous pen injector .COMPLEX #4 mL (Trulicity) Allergies Allergy/AdvReac Type Severity Reaction Status Date / Time bee venom protein (honey bee) Allergy Severe ALGY-Anaphy Verified 03/06/24 06:46 laxis adhesive tape Allergy Intermediate ADR-Itching Verified 03/06/24 06:46 thioridazine [From Mellaril] Allergy rash and Verified 03/06/24 06:46 itching tramadol Allergy pt has Verified 03/06/24 06:46 seizures Current Medications Generic Name Dose Route Start Last Admin Trade Name Freq PRN Reason Stop Dose Admin Sodium Chloride 1,000 mls @ 30 mls/hr 03/06/24 06:45 03/06/24 07:13 Sodium Chloride 0.9% IV 03/07/24 06:44 30 mls/hr .Q24H DAVID Administration PFSH Anesthesia Medical History Nicotine dependence, cigarettes, uncomplicated Psychiatric care Restless leg syndrome Hyperlipidemia Seizures COPD (chronic obstructive pulmonary disease) Enrolled in chronic care management Type 2 diabetes mellitus without complication, with no history of insulin use Lumbar post-laminectomy syndrome Migraine headache Surgical History History of lumbar spinal fusion 05/27/2021 History of decompression of ulnar nerve (10/17/17) 10/17/2017 Dr. Cabrera: Open release of left elbow with subcutaneous transposition. History of lumbar surgery (07/12/16) 07/12/2016 Dr. Carol Cabrera: Left L4-L5, L5-S1 laminotomy/foraminotomy History of cervical spinal surgery (1998) 01/08/2016 Dr. Kamila Cabrera: ACDFF surgical site exploration, postoperative cervical wound seroma. 12/29/2015 Dr. Carol Cabrera: C4-C5 ACDF 5, removal of C5-C7 anterior plate and screw fixation hardware. [place], [place] C5-C7 ACDFF History of carpal tunnel release of both wrists History of hernia repair Family History Sister Diabetes Mother Diabetes Hypertension Cancer Father Diabetes Hypertension Cancer Social History Smoking and tobacco/nicotine status: never used tobacco/nicotine Second hand smoke exposure: Yes Alcohol intake: current Alcohol intake frequency: holidays/special occasions only Alcohol type: hard liquor Substance/Drug Use: current Substance/Drug use frequency: few times a week Othe r substance/drug use details: Helps with sleep. Adopted: No Caregiver/support person: No Lives independently: Yes Household members: none Housing: House Marital status: Number of children: 3 Number of grandchildren: 3 Highest education level completed: GED or Equivalent service: No Current occupational status: disabled Pets and animals: Yes Pets & animals: dog(s) and farm animals Pets & animal details: goats, horses Leisure activites: music and other Leisure activities details: crafts Sexually active: No Do you think of yourself as: Straight/Heterosexual Current gender identity: Female Kassi/Sikh: Sabianist Special kassi needs: No Agree to transfusion: Yes Female Reproductive History Para: 3 Data Anesthesia Cardiac Studies: No Data to Display
[2024-03-06] MEDS: ceFAZolin 2,000 mg SDV 2000 MG IVP (08:50)
[2024-03-06] MEDS: lidocaine-epi 2% PF 1:200,000 20 mL SDV 10 ML XX (09:17)
[2024-03-06] MEDS: tranexamic acid 1,000 mg/10mL SDV 1000 MG IV (09:28)
--- NOTE | 2024-03-06 09:36 | P.OP_ITS ---
Operative Report Date of procedure: March 06, 2024 Pre-op diagnosis: Incisional hernia Post-op diagnosis: same Procedure done: Laparoscopic repair of incisional hernia with mesh Implants: 11 cm round Ventralight mesh Specimens removed/disposition: hernia sac Surgeon: Heath Matt DO Anesthesia: General and Local Estimated blood loss (mL): 5 Complications: None apparent Brief History: This is a very pleasant 58-year-old female who presented to my office with pain at a reducible incisional hernia at her umbilicus. She desired repair. Laparoscopic repair of incisional hernia with mesh was indicated. The risks and benefits were explained and documented. Procedure: Patient was wheeled into the operative room and placed on the OR table in a supine position. Abdomen was inspected prepped and draped in usual sterile fashion. Time-out was performed and all present were in agreement. A 15 blade scalp was used to make a 5 millimeter incision left upper quadrant. A Veress needle was placed into the incision and intra-abdominal insufflation was brought to 15 millimeters of mercury. A 12 millimeter trocar was placed into the left lower quadrant. There was an incisional hernia at the umbilicus measuring 1.5 cm in diameter. The energy but device was then used to cut out the hernia sac. An 11 cm Ventralight mesh was placed into the abdomen and brought up through the umbilicus using an the [place]. The mesh was then tacked in place in a double crown fashion. The skeleton of the mesh was removed via the left lower quadrant. The hernia sac was then removed from the abdomen via the left lower quadrant. The left lower quadrant port site was closed with an 0 Vicryl suture in a [place] in a [id number] fashion. Incisions were closed with 4 O Vicryl in a subcuticular interrupted fashion. Skin glue was applied. A dres sing that included cotton balls and a Tegaderm was placed over the umbilicus. Patient tolerated the procedure well.
[2024-03-06] MEDS: HYDROcodone-acetaminophen 7.5-325 mg Tablet 1 TAB PO (11:06)
--- NOTE | 2024-03-06 11:20 | ANE.PACU2 ---
Inpatient post-anesthesia follow up: Airway intact: Yes Vital signs: Temperature 97.3 F Pulse Rate 97 Respiratory Rate 18 Blood Pressure 145/91 Pulse Oximetry 93 Oxygen Delivery Me thod Room Air Oxygen Flow Rate 2 Fraction of Inspir ed Oxygen Hydration adequate: Yes Nausea and vomiting: No Pain level: 1 Mental status: Baseline
== END 2024-03-06 11:21 | disposition home or self-care (01) ==
PROVIDERS: PCP Registered Nurse; Visit Provider Surgery
PROC: 0WQF4ZZ Repair Abdominal Wall, Percutaneous Endoscopic Approach (ICD-10-PCS; CPT 49591; principal; 2024-03-06 08:20)
DX: K43.2 Incisional hernia without obstruction or gangrene (principal); J44.9 Chronic obstructive pulmonary disease, unspecified; E78.5 Hyperlipidemia, unspecified; Z98.1 Arthrodesis status; E11.9 Type 2 diabetes mellitus without complications
CPT/HCPCS: 49591; 36416; 82962; 88302; C1781; J0690; J1100; J2250; J2405; J2704; J3010; J3490; J7030

== ENCOUNTER 2024-03-18 06:00 | Outpatient (RCR) | payer MEDICARE, MEDICAID, SELFPAY ==
[2023-12-15 15:30] VITALS: BP 141/90; BMI 29.6
== END 2024-04-17 23:59 | disposition home or self-care (01) ==
LOC: WPT 06:00
PROVIDERS: PCP Registered Nurse; Visit Provider Specialist
DX: M25.511 Pain in right shoulder (principal)
CPT/HCPCS: 97110; 97112; 97140; 97530

== ENCOUNTER → 2024-03-19 08:15 | Outpatient (BNVA) | payer MEDICARE, MEDICAID, SELFPAY ==
[2023-12-15 15:30] VITALS: BP 141/90; BMI 29.6
== END ==
PROVIDERS: PCP Registered Nurse; Visit Provider Surgery
DX: R03.0 Elevated blood-pressure reading, without diagnosis of hypertension (principal); K52.9 Noninfective gastroenteritis and colitis, unspecified; Z98.890 Other specified postprocedural states; Z87.19 Personal history of other diseases of the digestive system
CPT/HCPCS: 99214

== ENCOUNTER 2024-04-18 06:00 | Outpatient (RCR) | payer MEDICARE, MEDICAID, SELFPAY ==
[2023-12-15 15:30] VITALS: BP 141/90; BMI 29.6
== END 2024-05-18 23:59 | disposition home or self-care (01) ==
LOC: WPT 06:00
PROVIDERS: PCP Registered Nurse; Visit Provider Specialist
DX: M25.511 Pain in right shoulder (principal)
CPT/HCPCS: 97110; 97112

== ENCOUNTER 2024-04-18 06:00 | Outpatient (RCR) | payer MEDICARE, MEDICAID, SELFPAY ==
[2023-12-15 15:30] VITALS: BP 141/90; BMI 29.6
== END 2024-05-18 23:59 | disposition home or self-care (01) ==
LOC: WPT 06:00
PROVIDERS: PCP Registered Nurse; Visit Provider Registered Nurse
DX: M54.16 Radiculopathy, lumbar region (principal)
CPT/HCPCS: 97110; 97112; 97162; 97530

== ENCOUNTER → 2024-05-21 11:09 | Outpatient (BNVA) | payer OTHER, SELFPAY ==
[2023-12-15 15:30] VITALS: BP 141/90; BMI 29.6
== END ==
PROVIDERS: PCP Registered Nurse; Visit Provider Psychiatry & Neurology Psychiatry
DX: F41.1 Generalized anxiety disorder (principal); F33.2 Major depressive disorder, recurrent severe without psychotic features
CPT/HCPCS: 80061; 83036

== ENCOUNTER → 2024-07-17 08:08 | Outpatient (BNVA) | payer MEDICARE, SELFPAY ==
[2024-06-29 08:11] VITALS: BP 163/105; BMI 28.8
== END ==
PROVIDERS: PCP Registered Nurse; Visit Provider Podiatrist Foot & Ankle Surgery
DX: E11.65 Type 2 diabetes mellitus with hyperglycemia (principal); L84 Corns and callosities
CPT/HCPCS: 17110; 73630; 99203

== ENCOUNTER → 2024-09-11 09:40 | Outpatient (BNVA) | payer MEDICARE, MEDICAID, SELFPAY ==
[2024-06-29 08:11] VITALS: BP 163/105; BMI 28.8
== END ==
PROVIDERS: PCP Registered Nurse; Visit Provider Registered Nurse
DX: E11.9 Type 2 diabetes mellitus without complications (principal); N28.9 Disorder of kidney and ureter, unspecified
CPT/HCPCS: 83036

== ENCOUNTER → 2024-10-18 12:55 | Outpatient (BNVA) | payer MEDICARE, MEDICAID, SELFPAY ==
[2024-06-29 08:11] VITALS: BP 163/105; BMI 28.8
== END ==
PROVIDERS: PCP Registered Nurse; Referring Provider Registered Nurse; Visit Provider Specialist
DX: G31.84 Mild cognitive impairment of uncertain or unknown etiology (principal); F17.210 Nicotine dependence, cigarettes, uncomplicated
CPT/HCPCS: 36415; 82542; 82607; 83520; 99204

== ENCOUNTER → 2024-10-23 10:29 | Outpatient (BNVA) | payer MEDICARE, MEDICAID, SELFPAY ==
[2024-06-29 08:11] VITALS: BP 163/105; BMI 28.8
== END ==
PROVIDERS: PCP Registered Nurse; Visit Provider Registered Nurse
DX: N89.8 Other specified noninflammatory disorders of vagina (principal); E11.65 Type 2 diabetes mellitus with hyperglycemia
CPT/HCPCS: 80053; 80061; 81000; 83036; 83721; 85025; 87070; 87205

== ENCOUNTER → 2025-01-15 09:35 | Outpatient (BNVA) | payer MEDICARE, MEDICAID, SELFPAY ==
[2024-06-29 08:11] VITALS: BP 163/105; BMI 28.8
== END ==
PROVIDERS: PCP Registered Nurse; Visit Provider Registered Nurse
DX: J06.9 Acute upper respiratory infection, unspecified (principal)
CPT/HCPCS: 85025

== ENCOUNTER → 2025-02-12 10:52 | Outpatient (BNVA) | payer MEDICARE, MEDICAID, SELFPAY ==
[2024-06-29 08:11] VITALS: BP 163/105; BMI 28.8
== END ==
PROVIDERS: PCP Registered Nurse; Visit Provider Registered Nurse
DX: E11.65 Type 2 diabetes mellitus with hyperglycemia (principal)
CPT/HCPCS: 83036